=== PATIENT | female | born 1960 | race Caucasian/White ===

== ENCOUNTER 2017-05-19 12:35 | Outpatient (RCR) | payer OTHER ==
[2017-05-19 12:54] LABS: BASOPHILS % (AUTO) 1 % (0-10); EOSINOPHILS # (AUTO) 0.1 10^3/uL (0.0-0.3); EOSINOPHILS % (AUTO) 1 % (0-10); HEMATOCRIT 39 % (35-52); HEMOGLOBIN 12.5 G/DL (11.5-16.0); LYMPHOCYTES # (AUTO) 1.6 X 10^3 (1.0-4.0); LYMPHOCYTES % (AUTO) 36 % (12-44); MEAN CORPUSCULAR HEMOGLOBIN 29 PG (25-34); MEAN CORPUSCULAR HGB CONC 32 G/DL (32-36); MEAN CORPUSCULAR VOLUME 92 FL (80-99); MEAN PLATELET VOLUME 8.9 FL (7.4-10.4); MONOCYTES # (AUTO) 0.5 X 10^3 (0.0-1.0); MONOCYTES % (AUTO) 12 % (0-12); NEUTROPHILS # (AUTO) 2.3 X 10^3 (1.8-7.8); NEUTROPHILS % (AUTO) 51 % (42-75); PLATELET COUNT 426 10^3/uL (130-400); RED BLOOD COUNT 4.29 10^6/uL (4.35-5.85); RED CELL DISTRIBUTION WIDTH 13.8 % (10.0-14.5); WHITE BLOOD COUNT 4.6 10^3/uL (4.3-11.0)
[2017-05-19 13:12] LABS: ALANINE AMINOTRANSFERASE 100 U/L (0-55); ALBUMIN 4.1 GM/DL (3.2-4.5); ALKALINE PHOSPHATASE 140 U/L (40-136); BILIRUBIN,TOTAL 0.5 MG/DL (0.1-1.0); BUN/CREATININE RATIO 14; CALCIUM 9.9 MG/DL (8.5-10.1); CARBON DIOXIDE 23 MMOL/L (21-32); CHLORIDE 108 MMOL/L (98-107); CREATININE SERUM 0.65 MG/DL (0.60-1.30); GFR ESTIMATED > 60; GLUCOSE 106 MG/DL (70-105); POTASSIUM 3.9 MMOL/L (3.6-5.0); SODIUM 138 MMOL/L (135-145); TOTAL PROTEIN 8.6 GM/DL (6.4-8.2)
== END 2017-08-17 | disposition home or self-care (01) ==
LOC: LAB 12:35
PROVIDERS: ATTEND Internal Medicine Rheumatology
DX: M34.9 Systemic sclerosis, unspecified (principal)
CPT/HCPCS: 36415; 80053; 85025

== ENCOUNTER → 2017-10-02 | Outpatient (CLI) | payer OTHER | LOC: WOUNDCARE 08:10 | PROVIDERS: ATTEND Surgery | DX: I70.234 Atherosclerosis of native arteries of right leg with ulceration of heel and midfoot (principal); I70.244 Atherosclerosis of native arteries of left leg with ulceration of heel and midfoot; L97.412 Non-pressure chronic ulcer of right heel and midfoot with fat layer exposed; L97.312 Non-pressure chronic ulcer of right ankle with fat layer exposed; L97.422 Non-pressure chronic ulcer of left heel and midfoot with fat layer exposed; L97.322 Non-pressure chronic ulcer of left ankle with fat layer exposed; M34.9 Systemic sclerosis, unspecified | CPT/HCPCS: 99215 ==

== ENCOUNTER → 2017-10-11 | Outpatient (CLI) | payer OTHER | LOC: WOUNDCARE 14:54 | PROVIDERS: ATTEND Surgery | DX: I70.234 Atherosclerosis of native arteries of right leg with ulceration of heel and midfoot (principal); L97.412 Non-pressure chronic ulcer of right heel and midfoot with fat layer exposed; L97.312 Non-pressure chronic ulcer of right ankle with fat layer exposed; I70.244 Atherosclerosis of native arteries of left leg with ulceration of heel and midfoot; L97.422 Non-pressure chronic ulcer of left heel and midfoot with fat layer exposed; L97.322 Non-pressure chronic ulcer of left ankle with fat layer exposed; M34.9 Systemic sclerosis, unspecified | CPT/HCPCS: 11042; 11045 ==

== ENCOUNTER → 2017-10-23 | Outpatient (CLI) | payer OTHER | LOC: WOUNDCARE 14:31 | PROVIDERS: ATTEND Surgery | DX: I70.231 Atherosclerosis of native arteries of right leg with ulceration of thigh (principal); L97.312 Non-pressure chronic ulcer of right ankle with fat layer exposed; I70.244 Atherosclerosis of native arteries of left leg with ulceration of heel and midfoot; L97.322 Non-pressure chronic ulcer of left ankle with fat layer exposed; I87.333 Chronic venous hypertension (idiopathic) with ulcer and inflammation of bilateral lower extremity; M34.9 Systemic sclerosis, unspecified | CPT/HCPCS: 99214 ==

== ENCOUNTER → 2017-11-15 | Outpatient (CLI) | payer OTHER ==
[2017-11-15 15:52] LABS: BASOPHILS % (AUTO) 0 % (0-10); EOSINOPHILS # (AUTO) 0.1 10^3/uL (0.0-0.3); EOSINOPHILS % (AUTO) 3 % (0-10); HEMATOCRIT 36 % (35-52); HEMOGLOBIN 11.9 G/DL (11.5-16.0); LYMPHOCYTES # (AUTO) 1.4 X 10^3 (1.0-4.0); LYMPHOCYTES % (AUTO) 25 % (12-44); MEAN CORPUSCULAR HEMOGLOBIN 31 PG (25-34); MEAN CORPUSCULAR HGB CONC 33 G/DL (32-36); MEAN CORPUSCULAR VOLUME 92 FL (80-99); MEAN PLATELET VOLUME 9.1 FL (7.4-10.4); MONOCYTES # (AUTO) 0.6 X 10^3 (0.0-1.0); MONOCYTES % (AUTO) 10 % (0-12); NEUTROPHILS # (AUTO) 3.6 X 10^3 (1.8-7.8); NEUTROPHILS % (AUTO) 62 % (42-75); PLATELET COUNT 316 10^3/uL (130-400); RED CELL DISTRIBUTION WIDTH 13.6 % (10.0-14.5); WHITE BLOOD COUNT 5.7 10^3/uL (4.3-11.0)
[2017-11-15 16:16] LABS: ALANINE AMINOTRANSFERASE 72 U/L (0-55); ALKALINE PHOSPHATASE 98 U/L (40-136); BILIRUBIN,TOTAL 0.4 MG/DL (0.1-1.0); BUN/CREATININE RATIO 12; CALCIUM 9.3 MG/DL (8.5-10.1); CARBON DIOXIDE 25 MMOL/L (21-32); CHLORIDE 109 MMOL/L (98-107); CREATININE SERUM 0.57 MG/DL (0.60-1.30); GFR ESTIMATED > 60; GLUCOSE 98 MG/DL (70-105); POTASSIUM 3.8 MMOL/L (3.6-5.0); SODIUM 140 MMOL/L (135-145)
== END ==
LOC: LAB 15:28
PROVIDERS: ATTEND Surgery
DX: I70.234 Atherosclerosis of native arteries of right leg with ulceration of heel and midfoot (principal); L97.312 Non-pressure chronic ulcer of right ankle with fat layer exposed
CPT/HCPCS: 36415; 80053; 85025

== ENCOUNTER → 2017-11-15 | Outpatient (CLI) | payer OTHER | LOC: WOUNDCARE 13:57 | PROVIDERS: ATTEND Surgery | DX: I70.234 Atherosclerosis of native arteries of right leg with ulceration of heel and midfoot (principal); L97.312 Non-pressure chronic ulcer of right ankle with fat layer exposed; I70.244 Atherosclerosis of native arteries of left leg with ulceration of heel and midfoot; L97.322 Non-pressure chronic ulcer of left ankle with fat layer exposed; I87.333 Chronic venous hypertension (idiopathic) with ulcer and inflammation of bilateral lower extremity; M34.9 Systemic sclerosis, unspecified | CPT/HCPCS: 11042; 11045 ==

== ENCOUNTER → 2018-01-29 | Outpatient (CLI) | payer OTHER | LOC: LAB 13:56 | PROVIDERS: ATTEND Internal Medicine Gastroenterology | DX: R94.5 Abnormal results of liver function studies (principal) | CPT/HCPCS: 36415; 82085; 82550; 82552 ==

== ENCOUNTER → 2018-04-23 | Outpatient (CLI) | payer OTHER | LOC: CARD 11:47 | PROVIDERS: ATTEND Family Medicine | DX: M34.9 Systemic sclerosis, unspecified (principal) | CPT/HCPCS: 93306; 94060; 94726; 94729 ==

== ENCOUNTER → 2018-07-10 | Outpatient (CLI) | payer OTHER ==
[~2018-07-10] MED LIST: CATHETER FLUSH 10 ML SYR IV PRN; IOHEXOL 350 MG/ML 150 ML (OMNIPAQUE 350) VIAL IV ONE; NS 250 ML (IVPB) BAG IV ONE; RECEIVED CONTRAST (Hold Metformin) IV SCH
--- NOTE | 2018-07-10 16:55 | Diagnostic Imaging Report ---
PROCEDURE: CT angiography of the chest with contrast. TECHNIQUE: Multiple contiguous axial images were obtained through the chest after uneventful bolus administration of intravenous contrast. 2D reconstructed CTA MIP acquisitions were also performed. INDICATION: Decreased pulmonary diffusion capacity. FINDINGS: There is no intraluminal pulmonary arterial filling defect. There is no pulmonary arterial embolus. The thoracic aorta is patent and nonaneurysmal. There is no bronchiectasis. No bullous disease, blebs, or air cysts. No parenchymal destruction. There are minimal zones of basilar atelectasis. No acute or chronic interstitial disease. No mass or lymphadenopathy. There is no effusion. The upper abdomen reveals multiple gallstones and a nonspecific nodule in the right hepatic lobe laterally, probably reflecting a hemangioma as there does appear to be likely peripheral nodular enhancement associated with this mass measuring 12.8 mm. IMPRESSION: Negative for PE. Trace atelectasis. Lungs are otherwise unremarkable. Probable cavernous hemangioma in the right hepatic lobe. Results phoned to the ordering physician. Dictated by: Dictated on workstation # [id number]
== END ==
LOC: RAD 15:26
PROVIDERS: ATTEND Nurse Practitioner Family
DX: J98.4 Other disorders of lung (principal); J98.11 Atelectasis; M34.9 Systemic sclerosis, unspecified; R94.2 Abnormal results of pulmonary function studies
CPT/HCPCS: 71275

== ENCOUNTER → 2018-07-27 | Outpatient (CLI) | payer OTHER ==
--- NOTE | 2018-07-27 11:37 | Diagnostic Imaging Report ---
EXAMINATION: Bone survey. INDICATION: Scleroderma. Multiple images of the axial and appendicular skeleton were obtained. FINDINGS: There is no fracture or acute bony abnormality identified. There is no lytic or blastic lesion identified either. 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 The right wrist is the more severely affected. The soft tissues are unremarkable. IMPRESSION: 1. There is no evidence for an acute bony abnormality. There is no lytic or blastic lesion identified either. 2. There is severe degenerative disease involving the wrist joints and the carpal bones. Dictated by: Dictated on workstation # [id number]
== END ==
LOC: RAD 09:57
PROVIDERS: ATTEND Internal Medicine Hematology & Oncology
DX: M34.9 Systemic sclerosis, unspecified (principal); M19.032 Primary osteoarthritis, left wrist; M19.031 Primary osteoarthritis, right wrist
CPT/HCPCS: 77075

== ENCOUNTER 2018-09-06 09:42 | Outpatient (RCR) | payer OTHER ==
[2018-07-10 14:48] LABS: BASOPHILS % (AUTO) 1 % (0-10); EOSINOPHILS # (AUTO) 0.3 10^3/uL (0.0-0.3); EOSINOPHILS % (AUTO) 6 % (0-10); HEMATOCRIT 34 % (35-52); HEMOGLOBIN 10.6 G/DL (11.5-16.0); LYMPHOCYTES # (AUTO) 1.4 X 10^3 (1.0-4.0); LYMPHOCYTES % (AUTO) 31 % (12-44); MEAN CORPUSCULAR HEMOGLOBIN 28 PG (25-34); MEAN CORPUSCULAR HGB CONC 31 G/DL (32-36); MEAN CORPUSCULAR VOLUME 92 FL (80-99); MEAN PLATELET VOLUME 8.9 FL (7.4-10.4); MONOCYTES # (AUTO) 0.4 X 10^3 (0.0-1.0); MONOCYTES % (AUTO) 10 % (0-12); NEUTROPHILS # (AUTO) 2.3 X 10^3 (1.8-7.8); NEUTROPHILS % (AUTO) 52 % (42-75); PLATELET COUNT 415 10^3/uL (130-400); RED CELL DISTRIBUTION WIDTH 15.3 % (10.0-14.5); WHITE BLOOD COUNT 4.3 10^3/uL (4.3-11.0)
[2018-07-10 15:15] LABS: ALANINE AMINOTRANSFERASE 36 U/L (0-55); ALBUMIN 3.8 GM/DL (3.2-4.5); ALKALINE PHOSPHATASE 118 U/L (40-136); BILIRUBIN,TOTAL 0.3 MG/DL (0.1-1.0); BUN/CREATININE RATIO 21; CALCIUM 9.7 MG/DL (8.5-10.1); CARBON DIOXIDE 20 MMOL/L (21-32); CHLORIDE 109 MMOL/L (98-107); CREATININE SERUM 0.58 MG/DL (0.60-1.30); GFR ESTIMATED > 60; GLUCOSE 97 MG/DL (70-105); POTASSIUM 3.8 MMOL/L (3.6-5.0); SODIUM 139 MMOL/L (135-145); TOTAL PROTEIN 8.2 GM/DL (6.4-8.2)
[2018-07-12 15:58] LABS: IMMUNOFIX PATH REPORT NUMBER Complete (Complete)
[2018-07-18 15:24] LABS: URINE IMMUNOFIXATION W/ INTERP Complete
[2018-08-02 12:00] LABS: URINE IMMUNOFIXATION W/ INTERP Complete
[2018-08-23 10:59] LABS: ABSOLUTE RETIC # 39 10e9/L (24-90); BASOPHILS % (AUTO) 1 % (0-10); EOSINOPHILS # (AUTO) 0.2 10^3/uL (0.0-0.3); EOSINOPHILS % (AUTO) 5 % (0-10); HEMATOCRIT 39 % (35-52); HEMOGLOBIN 12.4 G/DL (11.5-16.0); LYMPHOCYTES # (AUTO) 1.3 X 10^3 (1.0-4.0); LYMPHOCYTES % (AUTO) 34 % (12-44); MEAN CORPUSCULAR HEMOGLOBIN 29 PG (25-34); MEAN CORPUSCULAR HGB CONC 32 G/DL (32-36); MEAN CORPUSCULAR VOLUME 90 FL (80-99); MONOCYTES # (AUTO) 0.4 X 10^3 (0.0-1.0); MONOCYTES % (AUTO) 11 % (0-12); NEUTROPHILS % (AUTO) 50 % (42-75); PLATELET COUNT 413 10^3/uL (130-400); RED CELL DISTRIBUTION WIDTH 14.4 % (10.0-14.5); RETICULOCYTE % 0.89 % (0.50-2.40); WHITE BLOOD COUNT 3.9 10^3/uL (4.3-11.0)
[2018-08-23 11:34] LABS: BAND NEUTROPHILS 5 %; BASOPHILS % (MANUAL) 0 %; EOSINOPHILS % (MANUAL) 5 %; LYMPHOCYTES % (MANUAL) 32 %; MONOCYTES % (MANUAL) 12 %; NEUTROPHILS % (MANUAL) 46 %; RBC MORPH NORMAL
[~2018-09-06 09:42] MED LIST changes: -CATHETER FLUSH 10 ML SYR IV PRN; -IOHEXOL 350 MG/ML 150 ML (OMNIPAQUE 350) VIAL IV ONE; +LIDOCAINE 1% 20 ML (XYLOCAINE) VIAL CANCER CTR ONE; -NS 250 ML (IVPB) BAG IV ONE; -RECEIVED CONTRAST (Hold Metformin) IV SCH
== END 2018-10-08 | disposition home or self-care (01) ==
LOC: ONC 09:42
PROVIDERS: ATTEND Internal Medicine Hematology & Oncology
DX: D47.2 Monoclonal gammopathy (principal); D64.9 Anemia, unspecified; M34.9 Systemic sclerosis, unspecified; I10 Essential (primary) hypertension; J98.4 Other disorders of lung; Z79.899 Other long term (current) drug therapy
CPT/HCPCS: 36415; 38221; 80053; 82232; 82570; 82607; 82728; 82746; 82784; 83540; 83883; 84155; 84156; 84165; 84166; 85007; 85025; 85027; 85045; 86334; 86335; 88237; 88264; 99213

== ENCOUNTER → 2018-10-23 | Outpatient (CLI) | payer OTHER ==
[2018-10-23 16:50] LABS: BASOPHILS % (AUTO) 1 % (0-10); EOSINOPHILS # (AUTO) 0.1 10^3/uL (0.0-0.3); EOSINOPHILS % (AUTO) 3 % (0-10); HEMATOCRIT 37 % (35-52); HEMOGLOBIN 12.1 G/DL (11.5-16.0); LYMPHOCYTES # (AUTO) 1.6 X 10^3 (1.0-4.0); LYMPHOCYTES % (AUTO) 42 % (12-44); MEAN CORPUSCULAR HEMOGLOBIN 29 PG (25-34); MEAN CORPUSCULAR HGB CONC 33 G/DL (32-36); MEAN CORPUSCULAR VOLUME 90 FL (80-99); MEAN PLATELET VOLUME 8.8 FL (7.4-10.4); MONOCYTES # (AUTO) 0.3 X 10^3 (0.0-1.0); MONOCYTES % (AUTO) 9 % (0-12); NEUTROPHILS # (AUTO) 1.8 X 10^3 (1.8-7.8); NEUTROPHILS % (AUTO) 46 % (42-75); PLATELET COUNT 349 10^3/uL (130-400); RED CELL DISTRIBUTION WIDTH 14.5 % (10.0-14.5); WHITE BLOOD COUNT 3.9 10^3/uL (4.3-11.0)
[2018-10-23 17:10] LABS: ALANINE AMINOTRANSFERASE 32 U/L (0-55); ALBUMIN 3.9 GM/DL (3.2-4.5); ALKALINE PHOSPHATASE 104 U/L (40-136); BILIRUBIN,TOTAL 0.5 MG/DL (0.1-1.0); BUN/CREATININE RATIO 15; CALCIUM 9.6 MG/DL (8.5-10.1); CARBON DIOXIDE 24 MMOL/L (21-32); CHLORIDE 106 MMOL/L (98-107); ERYTHROCYTE SEDIMENTATION RATE 56 MM/HR (0-30); GFR ESTIMATED > 60; GLUCOSE 94 MG/DL (70-105); POTASSIUM 3.8 MMOL/L (3.6-5.0); SODIUM 139 MMOL/L (135-145)
== END ==
LOC: LAB 16:19
PROVIDERS: ATTEND Internal Medicine Rheumatology
DX: M34.9 Systemic sclerosis, unspecified (principal); Z79.899 Other long term (current) drug therapy
CPT/HCPCS: 36415; 80053; 85025; 85652; 86141

== ENCOUNTER 2018-12-06 10:29 | Outpatient (RCR) | payer OTHER ==
[2018-11-19 15:09] LABS: BASOPHILS % (AUTO) 1 % (0-10); EOSINOPHILS # (AUTO) 0.1 10^3/uL (0.0-0.3); EOSINOPHILS % (AUTO) 3 % (0-10); HEMATOCRIT 37 % (35-52); HEMOGLOBIN 12.3 G/DL (11.5-16.0); LYMPHOCYTES # (AUTO) 1.5 X 10^3 (1.0-4.0); LYMPHOCYTES % (AUTO) 40 % (12-44); MEAN CORPUSCULAR HEMOGLOBIN 30 PG (25-34); MEAN CORPUSCULAR HGB CONC 33 G/DL (32-36); MEAN CORPUSCULAR VOLUME 92 FL (80-99); MEAN PLATELET VOLUME 9.4 FL (7.4-10.4); MONOCYTES # (AUTO) 0.4 X 10^3 (0.0-1.0); MONOCYTES % (AUTO) 11 % (0-12); NEUTROPHILS # (AUTO) 1.7 X 10^3 (1.8-7.8); NEUTROPHILS % (AUTO) 46 % (42-75); PLATELET COUNT 329 10^3/uL (130-400); RED CELL DISTRIBUTION WIDTH 14.5 % (10.0-14.5); WHITE BLOOD COUNT 3.8 10^3/uL (4.3-11.0)
[2018-11-19 15:26] LABS: ALANINE AMINOTRANSFERASE 30 U/L (0-55); ALBUMIN 3.9 GM/DL (3.2-4.5); ALKALINE PHOSPHATASE 103 U/L (40-136); BILIRUBIN,TOTAL 0.5 MG/DL (0.1-1.0); BUN/CREATININE RATIO 16; CALCIUM 9.7 MG/DL (8.5-10.1); CARBON DIOXIDE 23 MMOL/L (21-32); CHLORIDE 107 MMOL/L (98-107); CREATININE SERUM 0.63 MG/DL (0.60-1.30); GFR ESTIMATED > 60; GLUCOSE 92 MG/DL (70-105); POTASSIUM 4.2 MMOL/L (3.6-5.0); SODIUM 137 MMOL/L (135-145); TOTAL PROTEIN 7.7 GM/DL (6.4-8.2)
== END 2019-02-17 | disposition home or self-care (01) ==
LOC: ONC 10:29
PROVIDERS: ATTEND Internal Medicine Hematology & Oncology
DX: D47.2 Monoclonal gammopathy (principal); D64.9 Anemia, unspecified; M34.9 Systemic sclerosis, unspecified; I10 Essential (primary) hypertension; J98.4 Other disorders of lung; Z79.899 Other long term (current) drug therapy
CPT/HCPCS: 36415; 80053; 82232; 82570; 82784; 83615; 83883; 84155; 84156; 84165; 84166; 85025; 99213

== ENCOUNTER → 2019-01-16 | Outpatient (CLI) | payer OTHER | LOC: LAB 15:32 | PROVIDERS: ATTEND Internal Medicine Rheumatology | DX: Z51.81 Encounter for therapeutic drug level monitoring (principal); Z79.899 Other long term (current) drug therapy | CPT/HCPCS: 36415 ==

== ENCOUNTER → 2019-04-14 | Outpatient (CLI) | payer OTHER ==
[2019-04-14 17:16] LABS: BASOPHILS % (AUTO) 1 % (0-10); EOSINOPHILS # (AUTO) 0.1 10^3/uL (0.0-0.3); EOSINOPHILS % (AUTO) 3 % (0-10); HEMATOCRIT 36 % (35-52); HEMOGLOBIN 11.2 G/DL (11.5-16.0); LYMPHOCYTES # (AUTO) 1.6 X 10^3 (1.0-4.0); LYMPHOCYTES % (AUTO) 46 % (12-44); MEAN CORPUSCULAR HEMOGLOBIN 28 PG (25-34); MEAN CORPUSCULAR HGB CONC 32 G/DL (32-36); MEAN CORPUSCULAR VOLUME 89 FL (80-99); MONOCYTES # (AUTO) 0.4 X 10^3 (0.0-1.0); MONOCYTES % (AUTO) 11 % (0-12); NEUTROPHILS # (AUTO) 1.4 X 10^3 (1.8-7.8); NEUTROPHILS % (AUTO) 39 % (42-75); PLATELET COUNT 403 10^3/uL (130-400); RED CELL DISTRIBUTION WIDTH 15.5 % (10.0-14.5); WHITE BLOOD COUNT 3.5 10^3/uL (4.3-11.0)
[2019-04-14 17:57] LABS: ERYTHROCYTE SEDIMENTATION RATE 73 MM/HR (0-30)
[2019-04-14 18:06] LABS: ALANINE AMINOTRANSFERASE 24 U/L (0-55); ALBUMIN 3.8 GM/DL (3.2-4.5); ALKALINE PHOSPHATASE 131 U/L (40-136); BILIRUBIN,TOTAL 0.3 MG/DL (0.1-1.0); BUN/CREATININE RATIO 39; CALCIUM 9.3 MG/DL (8.5-10.1); CARBON DIOXIDE 20 MMOL/L (21-32); CHLORIDE 109 MMOL/L (98-107); CREATINE KINASE 106 U/L (29-168); CREATININE SERUM 0.59 MG/DL (0.60-1.30); GFR ESTIMATED > 60; GLUCOSE 99 MG/DL (70-105); SODIUM 136 MMOL/L (135-145); TOTAL PROTEIN 8.8 GM/DL (6.4-8.2)
== END ==
LOC: LAB 16:52
PROVIDERS: ATTEND Internal Medicine Rheumatology
DX: M34.9 Systemic sclerosis, unspecified (principal); Z79.899 Other long term (current) drug therapy
CPT/HCPCS: 36415; 80053; 82550; 85025; 85652; 86141

== ENCOUNTER 2019-06-06 12:47 | Outpatient (RCR) | payer OTHER ==
[2019-05-23 11:53] LABS: BASOPHILS % (AUTO) 1 % (0-10); EOSINOPHILS # (AUTO) 0.1 10^3/uL (0.0-0.3); EOSINOPHILS % (AUTO) 2 % (0-10); HEMATOCRIT 36 % (35-52); HEMOGLOBIN 11.6 G/DL (11.5-16.0); LYMPHOCYTES # (AUTO) 1.4 X 10^3 (1.0-4.0); LYMPHOCYTES % (AUTO) 37 % (12-44); MEAN CORPUSCULAR HEMOGLOBIN 29 PG (25-34); MEAN CORPUSCULAR HGB CONC 32 G/DL (32-36); MEAN CORPUSCULAR VOLUME 89 FL (80-99); MEAN PLATELET VOLUME 8.9 FL (7.4-10.4); MONOCYTES # (AUTO) 0.3 X 10^3 (0.0-1.0); MONOCYTES % (AUTO) 9 % (0-12); NEUTROPHILS # (AUTO) 1.9 X 10^3 (1.8-7.8); NEUTROPHILS % (AUTO) 51 % (42-75); PLATELET COUNT 336 10^3/uL (130-400); RED CELL DISTRIBUTION WIDTH 14.4 % (10.0-14.5); WHITE BLOOD COUNT 3.8 10^3/uL (4.3-11.0)
[2019-05-23 12:10] LABS: ALANINE AMINOTRANSFERASE 23 U/L (0-55); ALBUMIN 3.7 GM/DL (3.2-4.5); ALKALINE PHOSPHATASE 110 U/L (40-136); BILIRUBIN,TOTAL 0.5 MG/DL (0.1-1.0); BUN/CREATININE RATIO 18; CALCIUM 9.2 MG/DL (8.5-10.1); CARBON DIOXIDE 24 MMOL/L (21-32); CHLORIDE 107 MMOL/L (98-107); CREATININE SERUM 0.61 MG/DL (0.60-1.30); GFR ESTIMATED > 60; GLUCOSE 98 MG/DL (70-105); POTASSIUM 3.8 MMOL/L (3.6-5.0); SODIUM 138 MMOL/L (135-145); TOTAL PROTEIN 8.1 GM/DL (6.4-8.2)
[2019-05-24 14:44] LABS: PROTEIN 24 HOUR URINE 144 MG/24H (0-149); PROTEIN URINE MG/DL 8 MG/DL (6-12); TOTAL VOLUME,URINE 1800 ML
[2019-06-06] MEDS ORDERED: FLU QUADRIvalent (5+ YOA) 2019-2020 (Cancer Ctr) 0.5 ML IM ONE (14:00)
== END 2019-08-21 | disposition home or self-care (01) ==
LOC: ONC 12:47
PROVIDERS: ATTEND Internal Medicine Hematology & Oncology
DX: D47.2 Monoclonal gammopathy (principal); D64.9 Anemia, unspecified; M34.9 Systemic sclerosis, unspecified; I10 Essential (primary) hypertension; J98.4 Other disorders of lung; Z79.899 Other long term (current) drug therapy
CPT/HCPCS: 80053; 82784; 83615; 83883; 84155; 84156; 84165; 85025; 90471; 99213

== ENCOUNTER 2019-10-30 09:19 | Inpatient (IN) | payer OTHER ==
[2019-10-30] VITALS (11 sets, daily range): BP systolic 84–115; BP diastolic 52–71
[~2019-10-30] VITALS: Ht 172.7 cm; Wt 80.9 kg
--- NOTE | 2019-10-30 09:36 | Diagnostic Imaging Report ---
Indication: Sepsis workup. Time of exam 9:32 AM No prior studies are available for comparison. The heart size is normal. The pulmonary vascularity is unremarkable. The lungs are clear. No infiltrate, effusion or pneumothorax is detected. Impression: No acute cardiopulmonary process is detected. Dictated by: Dictated on workstation # [id number]
[2019-10-30] MEDS ORDERED: METO-351 PO (09:42)
[2019-10-30] MEDS ORDERED: OMEP20TA33 PO (09:42)
[2019-10-30] MEDS ORDERED: LISI-552 PO (09:42)
[2019-10-30] MEDS ORDERED: LACTATED RINGERS 1,000 ML IV STA (09:46)
[2019-10-30] MEDS ORDERED: fentaNYL INJECTION 100 MCG/2 ML AMP IVP STA (09:46)
--- OUTSIDE RECORDS SUMMARY | 2019-10-30 09:49 | XMS REPORT | CCD ---
Author Author Pilar Payton D.O. 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 Name Role Phone PP Unavailable CCM Unavailable Summary Purpose Interface Exchange Insurance Providers Payer name Policy type / Coverage type Covered green party ID Effective Begin Date Effective End Date [facility] Commercial Insurance [id number] 2017 Un known Family history Mother Diagnosis Age At Onset Diabetes mellitus Type 2 Unknown Heart disease Unknown Father Diagnosis Age At Onset Coronary Artery Disease(CAD) Unknown Diabetes mellitus Type 2 Unknown Social History Social History Element Codes Description Effective Dates Marital status Unknown 01/01/2018 Number of children Unknown 2 01/01/2018 Employment Unknown Currently unemployed 01/01/[address]: 029741948 Has never smoked or chewed tobacco 01/01/[address]: 010317720 Never drinks alcohol 2017 Has the patient ever used illegal drugs? Unknown Has nev er used illegal drugs 01/01/2018 Allergies, Adverse Reactions, Alerts Substance Reaction Codes Entered Date Inactivated Date Status * NO KNOWN ENVIRONMENTAL ALLERGIES Unknown 01/01/2018 N o Inactive Date Active PENICILLINS reaction Unknown 01/01/2018 No Inactive Date Active * NO KNOWN FOOD ALLERGIES Unknown 01/01/2018 No Inactiv e Date Active Problems Condition Codes Effective Dates Condition Status Chronic iridocyclitis, right eye ICD-9: 364.10 ICD-10: H20.11 04/05/2018 Active Encounter for general adult medical examination withou t abnormal findings ICD-9: V70.0 ICD-10: Z00.00 06/06/2019 Active Essential (primary) hypertension ICD-9: 401.9 ICD-10: I10 01/01/2018 Active Progressive systemic sclerosis ICD-9: 710.1 ICD-10: M34.0 01/01/2018 Active Otalgia, left ear ICD-9: 388.70 ICD-10: H92.02 08/28/2018 Active Otorrhagia, left ear ICD-9: 388.69 ICD-10: H92.22 08/28/2018 Active Unspecified perforation of tympanic membrane, left ear ICD-9: 384.20 ICD-10: H72.92 08/28/2018 Active FLU VACCINE ICD-9: V04.81 ICD-10: Z23 05/29/2018 Active PNEUMOCOCCAL VACCINE ICD-9: V03.82 ICD-10: Z23 05/29/2018 Active Pain in right ankle and joints of right foot ICD-9: 71 9.47 ICD-10: M25.571 04/23/2018 Active Tachycardia, unspecified ICD-9: 785.0 ICD-10: R00.0 04/23/2018 Active Hypertension Unknown 01/01/2018 Active Abnormal levels of other serum enzymes ICD-9: 790.5 ICD-10: R74.8 01/01/2018 Active 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 ICD-9: 707.13 ICD-10: L97.322 01/01/2018 Active Non-pressure chronic ulcer of right ankle with fat lay er exposed ICD-9: 707.13 ICD-10: L97.312 01/01/2018 Active Medications Medication Codes Instructions Start Date Stop Date Status Fill Instructions prednisone 10 mg tablet RxNorm: 762540 Take 1 tablet by mouth twice daily for 3 days then 1 daily for four days 08/13/2019 08/16/2019 Active prednisone 10 mg tablet RxNorm: 148710 1 Tablet(s) Oral two times a day then 1 daily for four days 08/13/2019 08/12/2019 Inactive lisinopril 20 mg tablet RxNorm: 304684 1 Tablet(s) Oral QD 06/10/20 19 03/05/2020 Active metoprolol succinate ER 25 mg tablet,extended release 24 hr RxNorm: 605608 TAKE 1 TABLET DAILY 06/10/2019 No Stop Date Active metoprolol succinate ER 25 mg tablet,extended release 24 hr RxNorm: 380413 1 Tablet(s) Oral QD 06/06/2019 No Stop Date Active meloxicam 15 mg tablet RxNorm: 998013 1 Tablet(s) Oral QD 9 No Stop Date Active Benadryl Allergy 25 mg tablet RxNorm: 7343990 1 Tablet(s) Oral QD 1 No Stop Date Active lisinopril 20 mg tablet RxNorm: 027078 1 Tablet(s) Oral QD 06/06/20 19 06/09/2019 Inactive clindamycin HCl 300 mg capsule RxNorm: 782637 1 Capsule(s) Oral two times a day 06/06/2019 06/13/2019 Inactive meloxicam submicronized 10 mg capsule RxNorm: 5119702 1 Capsule( s) Oral QD 06/06/2019 06/06/2019 Inactive ciprofloxacin 0.2 % ear drops in a dropperette RxNorm: 37934 6 3 Drop(s) otic (ear) BID 08/28/2018 09/03/2018 Inactive CellCept 200 mg/mL oral suspension RxNorm: 476688 TAKE 5 ML BY MOUTH TWICE DAILY 07/02/2018 06/05/2019 Inactive metoprolol succinate ER 25 mg tablet,extended release 24 hr RxNorm: 175033 1 Tablet(s) PO QD replaces bisoprolol 06/15/2018 06/14/2018 Inactive metoprolol succinate ER 25 mg tablet,extended release 24 hr RxNorm: 001783 1 Tablet(s) PO QD replaces bisoprolol 06/15/2018 09/12/2018 Inactive diclofenac potassium 50 mg tablet RxNorm: 569213 1 Tablet(s) PO QID 05/29/2018 06/07/2018 Inactive bisoprolol fumarate 10 mg tablet RxNorm: 009364 1 Tablet(s) PO QD 1 06/14/2018 Inactive CellCept 200 mg/mL oral suspension RxNorm: 868219 5 Milliliter( s) PO BID 05/08/2018 06/06/2018 Inactive CellCept 200 mg/mL oral suspension RxNorm: 174573 5 Milliliter( s) PO BID 05/08/2018 09/04/2018 Inactive bisoprolol fumarate 10 mg tablet RxNorm: 701976 1 Tablet(s) PO QD 0 04/23/2018 05/13/2018 Inactive CellCept 200 mg/mL oral suspension RxNorm: 764938 5 Milliliter( s) PO BID 04/19/2018 05/07/2018 Inactive lisinopril 40 mg tablet RxNorm: 771374 1 Tablet(s) PO QD replac es 10mg daily 04/05/2018 06/10/2019 Inactive May change to 20mg p o BID if pill is too big for patient to swallow or more cost effective CellCept 200 mg/mL oral suspension RxNorm: 354668 5 Milliliter( s) PO BID 04/05/2018 04/18/2018 Inactive prednisone 10 mg tablet RxNorm: 273873 1 Tablet(s) PO B ID for 1 week the 1 po daily for 1 week 04/05/2018 04/22/2018 Inactive famotidine 20 mg tablet RxNorm: 506265 1 Tablet(s) PO QHS No Start Da te Active lisinopril 10 mg tablet RxNorm: 722301 1 Tablet(s) PO QD No Start D ate 04/04/2018 Inactive ibuprofen 200 mg tablet RxNorm: 794171 Tablet(s) PO as needed No St art Date 05/28/2018 Inactive Aleve 220 mg tablet RxNorm: 194258 2 Tablet(s) PO BID No Start Date 0 08/27/2018 Inactive Benadryl 25 mg capsule RxNorm: 2325252 1 Capsule(s) PO QHS No Start Date 08/27/2018 Inactive lisinopril 40 mg tablet RxNorm: 912920 1/2 Tablet(s) PO QD No Start Date 06/05/2019 Inactive Medication Administered No Medication Administered data Immunizations Vaccine Codes Date Status Influenza CVX: 141 05/29/2018 Complete Pneumococcal CVX: 133 05/29/2018 Complete Results Observation Observation Code Item Item Code Result Date [facility] Location URIC ACID 96271 URIC ACID 3.2 mg/dL 04/23/2018 Unknown COMPLETE BLOOD COUNT [id number] WBC 7.2 10e9/L 04/23/20 18 Unknown COMPLETE BLOOD COUNT [id number] RBC 3.81 10e12/L 2017 Unknown COMPLETE BLOOD COUNT [id number] HEMOGLOBIN 11.1 g/dL 04/23/20 18 Unknown COMPLETE BLOOD COUNT [id number] HEMATOCRIT 35.5 % 04/23/20 18 Unknown COMPLETE BLOOD COUNT [id number] MCV 93.2 fL 8 Unknown COMPLETE BLOOD COUNT [id number] MCH 29.1 pg 8 Unknown COMPLETE BLOOD COUNT [id number] MCHC 31.3 g/dL 8 Unknown COMPLETE BLOOD COUNT [id number] PLATELET COUNT 473 10e9/L 05/2018 Unknown COMPLETE BLOOD COUNT [id number] Mean Plt Volume 9.4 fL 05/2018 Unknown COMPLETE BLOOD COUNT [id number] Neut Auto 63.0 % 8 Unknown COMPLETE BLOOD COUNT [id number] Lymph Auto 25.8 % 04/23/20 18 Unknown COMPLETE BLOOD COUNT [id number] [place] Auto 8.8 % 8 Unknown COMPLETE BLOOD COUNT [id number] RDW 14.9 % 8 Unknown COMPLETE BLOOD COUNT [id number] Eos Auto 2.1 % 8 Unknown COMPLETE BLOOD COUNT [id number] Baso Auto 0.3 % 8 Unknown COMPLETE BLOOD COUNT [id number] Neutrophil Abs 4.54 10e9/L Unknown COMPLETE BLOOD COUNT [id number] Lymphocyte Abs 1.86 10e9/L Unknown COMPLETE BLOOD COUNT [id number] Monocyte Abs 0.63 10e9/L 04/14 Unknown COMPLETE BLOOD COUNT [id number] Eosinophil Abs 0.15 10e9/L Unknown COMPLETE BLOOD COUNT [id number] Basophil Abs 0.02 10e9/L 04/14 Unknown COMPLETE BLOOD COUNT [id number] RDW-SD 48.6 fL 8 Unknown C-REACTIVE PROTEIN (CRP) QUANT 49696 C-Reactive Prot 8.5 mg/dL 04/23/2018 Unknown COMPREHENSIVE METABOLIC 11480 AST 29 U/L 2017 Unknown COMPREHENSIVE METABOLIC 46595 ALT 46 U/L 2017 Unknown COMPREHENSIVE METABOLIC 52506 BUN 14 mg/dL 2017 Unknown COMPREHENSIVE METABOLIC 83949 ALBUMIN 3.6 g/dL 2017 Unknown COMPREHENSIVE METABOLIC 49659 CHLORIDE 105 mmol/L 04/23 Unknown COMPREHENSIVE METABOLIC 73904 Bili Total 0.4 mg/dL 04/23 Unknown COMPREHENSIVE METABOLIC 29517 ALK PHOS 161 U/L 2017 Unknown COMPREHENSIVE METABOLIC 63725 SODIUM 140 mmol/L 04/23 Unknown COMPREHENSIVE METABOLIC 06945 CREATININE 0.41 mg/dL 04/14 Unknown COMPREHENSIVE METABOLIC 71048 CALCIUM 9.4 mg/dL 2017 Unknown COMPREHENSIVE METABOLIC 80505 POTASSIUM 3.6 mmol/L 04/23 Unknown COMPREHENSIVE METABOLIC 73248 Total Protein 7.9 g/dL Unknown COMPREHENSIVE METABOLIC 09477 Glucose 129 mg/dL 2017 Unknown COMPREHENSIVE METABOLIC 41955 Bicarbonate 22 mmol/L 04/14 Unknown COMPREHENSIVE METABOLIC 05497 AGAP 13 mmol/L 2017 Unknown ERYTHROCYTE SEDIMENTATION RATE 12469 Sed Rate 68 mm/hr 04/23/2018 Unknown GFR CALC 1405611 GFR Afr Amr >60 mL/min 04/23/2018 Unknow n GFR CALC 1072987 GFR Non Afr Amr >60 mL/min 04/23/2018 Un known Procedures Procedure Codes Date CEFTRIAXONE SODIUM INJECTION CPT-4: J0696 08/28/2018 THER/PROPH/DIAG INJ SC/IM CPT-4: 40032 08/28/2018 IIV4 VACCINE 3 YRS+ IM AND UP CPT-4: 63701 05/29/2018 PNEUMOCOCCAL VACC 13 ZULEYMA IM CPT-4: 80420 05/29/2018 IMMUNIZATION ADMIN CPT-4: 11275 05/29/2018 IMMUNIZATION ADMIN EACH ADD CPT-4: 49820 05/29/2018 ROUTINE VENIPUNCTURE CPT-4: 33846 04/23/2018 COMPREHEN METABOLIC PANEL CPT-4: 56448 04/23/2018 COMPLETE CBC W/AUTO DIFF WBC CPT-4: 69683 04/23/2018 RBC SED RATE AUTOMATED CPT-4: 44368 04/23/2018 ASSAY OF BLOOD/URIC ACID CPT-4: 46802 04/23/2018 C-REACTIVE PROTEIN CPT-4: 36094 04/23/2018 THER/PROPH/DIAG INJ SC/IM CPT-4: 73582 04/05/2018 TRIAMCINOLONE ACET INJ NOS CPT-4: J3301 04/05/2018 DEXAMETHASONE SODIUM PHOS CPT-4: J1100 04/05/2018 Vital Signs Date Vital 06/06/2019 Blood Pressure 1: 130/72 Code: 8480-6 Te mperature: 36.7 (C) / 98.0 (F) Weight: 08/28/2018 Blood Pressure 1: 164/90 Code: 8480-6 Heart Rate 1: 96 bpm Respiratory Rate: 16 bpm SpO2: 97% Temperature: 36.8 (C) / 98.2 (F) We ight: 05/29/2018 Blood Pressure 1: 144/82 Code: 8480-6 Heart Rate 1: 80 bpm Height: Respiratory Rate: 20 bpm SpO2: 97% Temperature: 36.6 (C) / 97.8 (F) We ight: 04/23/2018 Blood Pressure 1: 126/78 Code: 8480-6 Heart Rate 1: 112 bpm Respiratory Rate: 18 bpm Temperature: 36.8 (C) / 98.2 (F) 04/05/2018 Blood Pressure 1: 166/96 Code: 8480-6 Heart Rate 1: 11 6 bpm Height: Respiratory Rate: 20 bpm SpO2: 95% Temperature: 37.3 (C) / 99.2 (F) We ight: 01/01/2018 Blood Pressure 1: 134/82 Code: 8480-6 Heart Rate 1: 92 bpm Height: Respiratory Rate: 20 bpm SpO2: 97% Temperature: 36.6 (C) / 97.8 (F) We ight: Functional Status No Functional Status data Reason For Visit Reason For Visit Effective Dates Notes well woman exam (40-65 years) 06/06/2019 otalgia 08/28/2018 patient started taki ng the whole pill of her Lisinopril since Thanksgi follow up 05/29/2018 follow up 04/23/2018 sores 04/05/2018 Discuss restarting c ellcept ~generic 01/01/2018 New Patient---establ ishing visit Encounters Encounter Performer Location Codes Date ([id number]) PREV VISIT EST AGE 40-64 Diagnosis: Encounter for general adult medical examination without abnormal findings[ICD10: Z00.00] Diagnosis: Essential (primary) hypertension[ICD10: I10] Diagnosis: Chronic iridocyclitis, right eye[ICD10: H20.11] Diagnosis: Progressive systemic sclerosis[ICD10: M34.0] Dolores PAYTON [employer] CPT-4: 20184 06/06/2019 ([id number]) OFFICE/OUTPATIENT VISIT EST Diagnosis: Otalgia, left ear[ICD10: H92.02] Diagnosis: Unspecified perforation of tympanic membrane, left ear[ICD10: H72.92] Diagnosis: Otorrhagia, left ear[ICD10: H92.22] Paula [facility] CPT-4: 92776 08/28/2018 ([id number]) OFFICE/OUTPATIENT VISIT EST Diagnosis: FLU VACCINE[ICD10: Z23] Diagnosis: PNEUMOCOCCAL VACCINE[ICD10: Z23] Diagnosis: Essential (primary) hypertension[ICD10: I10] Diagnosis: Progressive systemic sclerosis[ICD10: M34.0] Dolores BERNAL [employer] CPT-4: 38663 05/29/2018 ([id number]) OFFICE/OUTPATIENT VISIT EST Diagnosis: Essential (primary) hypertension[ICD10: I10] Diagnosis: Tachycardia, unspecified[ICD10: R00.0] Diagnosis: Progressive systemic sclerosis[ICD10: M34.0] Diagnosis: Pain in right ankle and joints of right foot[ICD10: M25.571] Dolores BERNAL [employer] CPT-4: 13861 04/23/2018 ([id number]) OFFICE/OUTPATIENT VISIT EST Diagnosis: Essential (primary) hypertension[ICD10: I10] Diagnosis: Progressive systemic sclerosis[ICD10: M34.0] Diagnosis: Chronic iridocyclitis, right eye[ICD10: H20.11] Dolores BERNAL [employer] CPT-4: 56249 04/05/2018 ([id number]) OFFICE/OUTPATIENT VISIT NEW Diagnosis: Progressive systemic sclerosis[ICD10: M34.0] Diagnosis: Non-pressure chronic ulcer of left ankle with fat layer exposed[ICD10: L97.322] Diagnosis: Non-pressure chronic ulcer of right ankle with fat layer exposed[ICD10: L97.312] Diagnosis: Abnormal levels of other serum enzymes[ICD10: R74.8] Diagnosis: Essential (primary) hypertension[ICD10: I10] Dolores [employer] CPT-4: 55977 01/01/2018 Plan of Care Planned Activity Notes Codes Status Date Visit Diagnosis Plan: Progressive systemic sclerosis D iscussion: Following routinely with Dr. Bateman Discussed scleroderma center ICD-9 : 710.1 ICD-10 : M34.0 06/06/2019 Visit Diagnosis Plan: Encounter for [facility] adult medical examination without abnormal findings Discussion: Mediterranean diet Recommend PT to work on strengthening/gait/wheelchair Will inquire about flu shot at Dr. Gracia's office ICD-9 : V70.0 ICD-10 : Z00.00 06/06/2019 Visit Diagnosis Plan: Essential (primary) hypertension Discussion: Stable ICD-9 : 401.9 ICD-10 : I10 06/06/2019 Visit Diagnosis Plan: Chronic iridocyclitis, right eye Discussion: Established with new retinal specialist in [place] ICD-9 : 364.10 ICD-10 : H20.11 06/06/2019 Appointment: [facility]el[facility] [phone] [facility] [facility] 06/06/2019 Patient Education: clindamycin HCl- [employer] Coupon [id number] [email or web address] Completed 06/06/2019 Visit Diagnosis Plan: Otorrhagia, left ear Discussion: consulted with dr. payton. rocephin injection given in office. cipro drops prescribed to start tonight. referral made to dr. julio for evaluation of ear due to severity of bleeding and continuous pain. discussed wit hpatient that elevated bp most likely r/t severity of pain and bleeding of ear. will recheck bp once symptoms improve. ICD-9 : 388.69 ICD-10 : H92.22 08/28/2018 Visit Diagnosis Plan: Unspecified perforation of tympa janina membrane, left ear Discussion: see other plan ICD-9 : 384.20 ICD-10 : H72.92 08/28/2018 Visit Diagnosis Plan: Otalgia, left ear Discussion: se e other plan ICD-9 : 388.70 ICD-10 : H92.02 08/28/2018 Appointment: Paula Trujillo [address] [place], [place] [id number] ACUTE ILLNESS 08/28/2018 Visit Diagnosis Plan: Progressive systemic sclerosis D iscussion: Has fwup with rheumatology to go over test results Flu/Prevnar given ICD-9 : 710.1 ICD-10 : M34.0 05/29/2018 Visit Diagnosis Plan: Essential (primary) hypertension Discussion: Stable Continue current meds and monitor BP ICD-9 : 401.9 ICD-10 : I10 05/29/2018 Appointment: Dolores Payton WPtel: [address] [place], [place] [phone] FOLLOW UP 05/29/2018 Patient Education: Patient Medication Summary Completed 05/29/2018 Appointment: Dolores Payton WPtel: [address] [place], [place] [id number] 05/18/18 1200--moved appt to 05/29/18 at 3:30pm (km) CANCELED 05/22/2018 Visit Diagnosis Plan: Pain in right ankle and joints o f right foot Discussion: Check CBC, CMP, ESR, CRP, uric acid ICD-9 : 719.47 ICD-10 : M25.571 04/23/2018 Visit Diagnosis Plan: Essential (primary) hypertension Discussion: Decrease lisinopril to 20mg daily Monitor BP ICD-9 : 401.9 ICD-10 : I10 04/23/2018 Visit Diagnosis Plan: Tachycardia, unspecified Discuss ion: Add bisoprolol 10mg daily Monitor pulse Follow Up: 1 months ICD-9 : 785.0 ICD-10 : R00.0 04/23/2018 Appointment: Dolores Payton WPtel: [address] [place] [place] [id number] 04/23/2018 Patient Education: Patient Medication Summary Completed 04/23/2018 Visit Diagnosis Plan: Progressive systemic sclerosis D iscussion: Restart Cellcept Referral to new radiologist ICD-9 : 710.1 ICD-10 : M34.0 04/05/2018 Visit Diagnosis Plan: Chronic iridocyclitis, right eye Discussion: Kenalog/dexamethasone and prednisone taper Follow Up: 2 weeks ICD-9 : 364.10 ICD-10 : H20.11 04/05/2018 Visit Diagnosis Plan: Essential (primary) hypertension Discussion: Increase lisinopril to 40mg po daily Recheck 2 weeks ICD-9 : 401.9 ICD-10 : I10 04/05/2018 Appointment: Dolores Payton WPtel: [facility] ACUTE ILLNESS 04/05/2018 Patient Education: Patient Medication Summary Completed 04/05/2018 Care Plan: Referral Order SNOMED-CT : 30 [id number] Pending 04/05/2018 Visit Diagnosis Plan: Non-pressure chron ic ulcer of left ankle with fat layer exposed Discussion: Continue Bactrim and go back to wound care ICD-9 : 707.13 ICD-10 : L97.322 01/01/2018 Visit Diagnosis Plan: Essential (primary) hypertension Discussion: Stable on lisinopril ICD-9 : 401.9 ICD-10 : I10 01/01/2018 Visit Diagnosis Plan: Progressive systemic sclerosis D iscussion: Following with rheumatology in [place] Stopped Cellcept ICD-9 : 710.1 ICD-10 : M34.0 01/01/2018 Visit Diagnosis Plan: Abnormal levels of other serum e nzymes Discussion: Referral to GI as per rheumatology request ICD-9 : 790.5 ICD-10 : R74.8 01/01/2018 Appointment: Dolores Payton WPtel: [address] [place], [place] [id number] NEW PATIENT 01/01/2018 Patient Education: Patient Medication Summary Completed 01/01/2018 Care Plan: Referral Order SNOMED-CT : 30 [id number] Pending 01/01/2018 Appointment: Dolores Payton WPtel: [address] [place] [address] [place] CANCELED 10/11/2017 Referral: Eliel Recinos WPtel: [address] [facility] [address] [id number] [place] Referral Appointment Requested Referral: Broderick Cantu WPtel: [address] [facility] [address] [id number] [place] Referral Appointment Requested Instructions No Instructions Medical Equipment No Medical Equipment data Health Concerns Section Health Concerns data not found Goals Section Goals data not found Interventions Section Interventions data not found Health Status Evaluations/Outcomes Section Health Status Evaluations/Outcomes data not found Advance Directives No Advance Directive data
--- OUTSIDE RECORDS SUMMARY | 2019-10-30 09:50 | XMS REPORT | Continuity of Care Document ---
Author Organization Unknown Address Unknown Phone Unavailable Allergies Active Description Code Type Severity Reaction Onset Reported/Identified Relationship to Patient Clinical Status Yes No Allergy Information Available [id number] Drug Allergy Unknown N/A 018 Medications There is no data. Problems Date Dx Coded Attending Type Code Diagnosis Diagnosed By 05/22/2017 ROLY LOMBARDO, CONNOR Ponce Ot M34.9 SYSTEMIC SCLEROSIS, UNSPECIFIED 05/31/2017 ROLY LOMBARDO, CONNOR Ponce Ot M34.9 SYSTEMIC SCLEROSIS, UNSPECIFIED 06/28/2017 ROLY LOMBARDO, CONNOR Ponce Ot M34.9 SYSTEMIC SCLEROSIS, UNSPECIFIED 08/17/2017 ROLY LOMBARDO, CONNOR Ponce Ot M34.9 SYSTEMIC SCLEROSIS, UNSPECIFIED 08/18/2017 ROLY LOMBARDO, CONNOR Ponce Ot M34.9 SYSTEMIC SCLEROSIS, UNSPECIFIED 10/06/2017 LARY PRESLEY MD Ot I70.234 ATHSCL WIYOT ART OF RIGHT LEG W ULCER O 10/06/2017 LARY PRESLEY MD Ot I70.244 ATHSCL WIYOT ART OF LEFT LEG W ULCER OF 10/06/2017 LARY PRESLEY MD Ot L97.312 NON-PRS CHRONIC ULCER OF RIGHT ANKLE W F 10/06/2017 LARY PRESLEY MD Ot L97.322 NON-PRESSURE CHRONIC ULCER OF LEFT ANKLE 10/06/2017 LARY PRESLEY MD Ot L97.412 NON-PRS CHR ULCER OF RIGHT HEEL AND MIDF 10/06/2017 LARY PRESLEY MD Ot L97.422 NON-PRS CHR ULCER OF LEFT HEEL AND MIDFO 10/06/2017 LARY PRESLEY MD, Ot M34 .9 SYSTEMIC SCLEROSIS, UNSPECIFIED 10/16/2017 LARY PRESLEY MD Ot I70.234 ATHSCL WIYOT ART OF RIGHT LEG W ULCER O 10/16/2017 LARY PRESLEY MD Ot I70.244 ATHSCL WIYOT ART OF LEFT LEG W ULCER OF 10/16/2017 LARY PRESLEY MD Ot L97.312 NON-PRS CHRONIC ULCER OF RIGHT ANKLE W F 10/16/2017 LARY PRESLEY MD Ot L97.322 NON-PRESSURE CHRONIC ULCER OF LEFT ANKLE 10/16/2017 LARY PRESLEY MD Ot L97.412 NON-PRS CHR ULCER OF RIGHT HEEL AND MIDF 10/16/2017 LARY PRESLEY MD Ot L97.422 NON-PRS CHR ULCER OF LEFT HEEL AND MIDFO 10/16/2017 LARY PRESLEY MD, Ot M34 .9 SYSTEMIC SCLEROSIS, UNSPECIFIED 10/18/2017 LARY PRESLEY MD Ot I70.234 ATHSCL WIYOT ART OF RIGHT LEG W ULCER O 10/18/2017 LARY PRESLEY MD Ot I70.244 ATHSCL WIYOT ART OF LEFT LEG W ULCER OF 10/18/2017 LARY PRESLEY MD Ot L97.312 NON-PRS CHRONIC ULCER OF RIGHT ANKLE W F 10/18/2017 LARY PRESLEY MD Ot L97.322 NON-PRESSURE CHRONIC ULCER OF LEFT ANKLE 10/18/2017 LARY PRESLEY MD Ot L97.412 NON-PRS CHR ULCER OF RIGHT HEEL AND MIDF 10/18/2017 LARY PRESLEY MD Ot L97.422 NON-PRS CHR ULCER OF LEFT HEEL AND MIDFO 10/18/2017 LARY PRSELEY MD, Ot M34 .9 SYSTEMIC SCLEROSIS, UNSPECIFIED 10/29/2017 LARY PRESLEY MD Ot I70.231 ATHSCL WIYOT ARTERIES OF RIGHT LEG W UL 10/29/2017 LARY PRESLEY MD Ot I70.244 ATHSCL WIYOT ART OF LEFT LEG W ULCER OF 10/29/2017 LARY PRESLEY MD Ot I87.333 CHRONIC VENOUS HTN W ULCER AND INFLAM OF 10/29/2017 LARY PRESLEY MD Ot L97.312 NON-PRS CHRONIC ULCER OF RIGHT ANKLE W F 10/29/2017 LARY PRESLEY MD Ot L97.322 NON-PRESSURE CHRONIC ULCER OF LEFT ANKLE 10/29/2017 LARY PRSELEY MD Ot M34 .9 SYSTEMIC SCLEROSIS, UNSPECIFIED 11/20/2017 LARY PRESLEY MD Ot I70.234 ATHSCL WIYOT ART OF RIGHT LEG W ULCER O 11/20/2017 LARY PRESLEY MD Ot I70.244 ATHSCL WIYOT ART OF LEFT LEG W ULCER OF 11/20/2017 LARY PRESLEY MD Ot I87.333 CHRONIC VENOUS HTN W ULCER AND INFLAM OF 11/20/2017 LARY PRESLEY MD Ot L97.312 NON-PRS CHRONIC ULCER OF RIGHT ANKLE W F 11/20/2017 LARY PRESLEY MD, Ot L97.322 NON-PRESSURE CHRONIC ULCER OF LEFT ANKLE 11/20/2017 LARY PRESLEY MD, Ot M34 .9 SYSTEMIC SCLEROSIS, UNSPECIFIED 11/28/2017 LARY PRESLEY MD Ot I70.234 ATHSCL WIYOT ART OF RIGHT LEG W ULCER O 11/28/2017 LARY PRESLEY MD Ot L97.312 NON-PRS CHRONIC ULCER OF RIGHT ANKLE W F 11/29/2017 LARY PRESLEY MD Ot I70.234 ATHSCL WIYOT ART OF RIGHT LEG W ULCER O 11/29/2017 LARY PRESLEY MD, Ot L97.312 NON-PRS CHRONIC ULCER OF RIGHT ANKLE W F 02/01/2018 ROE LOMBARDO, HELENE P Ot R94. 5 ABNORMAL RESULTS OF LIVER FUNCTION STUDI 02/15/2018 ROE LOMBARDO, HELENE P Ot R94. 5 ABNORMAL RESULTS OF LIVER FUNCTION STUDI 04/19/2018 LARY PRESLEY MD Ot I70.234 ATHSCL WIYOT ART OF RIGHT LEG W ULCER O 04/19/2018 LARY PRESLEY MD Ot I70.244 ATHSCL WIYOT ART OF LEFT LEG W ULCER OF 04/19/2018 LARY PRESLEY MD Ot L97.312 NON-PRS CHRONIC ULCER OF RIGHT ANKLE W F 04/19/2018 LARY PRESLEY MD Ot L97.322 NON-PRESSURE CHRONIC ULCER OF LEFT ANKLE 04/19/2018 LARY PRESLEY MD Ot L97.412 NON-PRS CHR ULCER OF RIGHT HEEL AND MIDF 04/19/2018 LARY PRESLEY MD Ot L97.422 NON-PRS CHR ULCER OF LEFT HEEL AND MIDFO 04/19/2018 LARY PRESLEY MD, Ot M34 .9 SYSTEMIC SCLEROSIS, UNSPECIFIED 04/19/2018 LARY PRESLEY MD Ot I70.234 ATHSCL WIYOT ART OF RIGHT LEG W ULCER O 04/19/2018 LARY PRESLEY MD Ot I70.244 ATHSCL WIYOT ART OF LEFT LEG W ULCER OF 04/19/2018 LARY PRESLEY MD Ot L97.312 NON-PRS CHRONIC ULCER OF RIGHT ANKLE W F 04/19/2018 LARY PRESLEY MD Ot L97.322 NON-PRESSURE CHRONIC ULCER OF LEFT ANKLE 04/19/2018 LARY PRESLEY MD Ot L97.412 NON-PRS CHR ULCER OF RIGHT HEEL AND MIDF 04/19/2018 LARY PRESLEY MD Ot L97.422 NON-PRS CHR ULCER OF LEFT HEEL AND MIDFO 04/19/2018 LARY PRESLEY MD, Ot M34 .9 SYSTEMIC SCLEROSIS, UNSPECIFIED 04/19/2018 LARY PRESLEY MD Ot I70.231 ATHSCL WIYOT ARTERIES OF RIGHT LEG W UL 04/19/2018 LARY PRESLEY MD Ot I70.244 ATHSCL WIYOT ART OF LEFT LEG W ULCER OF 04/19/2018 LARY PRESLEY MD Ot I87.333 CHRONIC VENOUS HTN W ULCER AND INFLAM OF 04/19/2018 LARY PRESLEY MD Ot L97.312 NON-PRS CHRONIC ULCER OF RIGHT ANKLE W F 04/19/2018 LARY PRESLEY MD Ot L97.322 NON-PRESSURE CHRONIC ULCER OF LEFT ANKLE 04/19/2018 LARY PRESLEY MD, Ot M34 .9 SYSTEMIC SCLEROSIS, UNSPECIFIED 04/19/2018 LARY PRESLEY MD Ot I70.234 ATHSCL WIYOT ART OF RIGHT LEG W ULCER O 04/19/2018 LARY PRESLEY MD Ot I70.244 ATHSCL WIYOT ART OF LEFT LEG W ULCER OF 04/19/2018 LARY PRESLEY MD Ot I87.333 CHRONIC VENOUS HTN W ULCER AND INFLAM OF 04/19/2018 LARY PRESLEY MD Ot L97.312 NON-PRS CHRONIC ULCER OF RIGHT ANKLE W F 04/19/2018 LARY PRESLEY MD Ot L97.322 NON-PRESSURE CHRONIC ULCER OF LEFT ANKLE 04/19/2018 LARY PRESLEY MD, Ot M34 .9 SYSTEMIC SCLEROSIS, UNSPECIFIED 04/25/2018 DOLORES LUCERO DO Ot M34.9 SYSTEMIC SCLEROSIS, UNSPECIFIED 05/09/2018 DOLORES LUCERO DO Ot M34.9 SYSTEMIC SCLEROSIS, UNSPECIFIED 06/21/2018 LARY PRESLEY MD Ot I70.234 ATHSCL WIYOT ART OF RIGHT LEG W ULCER O 06/21/2018 LARY PRESLEY MD Ot I70.244 ATHSCL WIYOT ART OF LEFT LEG W ULCER OF 06/21/2018 LARY PRESLEY MD Ot L97.312 NON-PRS CHRONIC ULCER OF RIGHT ANKLE W F 06/21/2018 LARY PRESLEY MD Ot L97.322 NON-PRESSURE CHRONIC ULCER OF LEFT ANKLE 06/21/2018 LARY PRESLEY MD Ot L97.412 NON-PRS CHR ULCER OF RIGHT HEEL AND MIDF 06/21/2018 LARY PRESLEY MD Ot L97.422 NON-PRS CHR ULCER OF LEFT HEEL AND MIDFO 06/21/2018 LARY PRESLEY MD, Ot M34 .9 SYSTEMIC SCLEROSIS, UNSPECIFIED 06/21/2018 LARY PRESLEY MD Ot I70.234 ATHSCL WIYOT ART OF RIGHT LEG W ULCER O 06/21/2018 LARY PRESLEY MD Ot I70.244 ATHSCL WIYOT ART OF LEFT LEG W ULCER OF 06/21/2018 LARY PRESLEY MD Ot L97.312 NON-PRS CHRONIC ULCER OF RIGHT ANKLE W F 06/21/2018 LARY PRESLEY MD Ot L97.322 NON-PRESSURE CHRONIC ULCER OF LEFT ANKLE 06/21/2018 LARY PRESLEY MD Ot L97.412 NON-PRS CHR ULCER OF RIGHT HEEL AND MIDF 06/21/2018 LARY PRESLEY MD Ot L97.422 NON-PRS CHR ULCER OF LEFT HEEL AND MIDFO 06/21/2018 LARY PRESLEY MD, Ot M34 .9 SYSTEMIC SCLEROSIS, UNSPECIFIED 06/21/2018 LARY PRESLEY MD Ot I70.231 ATHSCL WIYOT ARTERIES OF RIGHT LEG W UL 06/21/2018 LARY PRESLEY MD Ot I70.244 ATHSCL WIYOT ART OF LEFT LEG W ULCER OF 06/21/2018 LARY PRESLEY MD Ot I87.333 CHRONIC VENOUS HTN W ULCER AND INFLAM OF 06/21/2018 LARY PRESLEY MD Ot L97.312 NON-PRS CHRONIC ULCER OF RIGHT ANKLE W F 06/21/2018 LARY PRESLEY MD Ot L97.322 NON-PRESSURE CHRONIC ULCER OF LEFT ANKLE 06/21/2018 LARY PRESLEY MD, Ot M34 .9 SYSTEMIC SCLEROSIS, UNSPECIFIED 06/21/2018 LARY PRESLEY MD Ot I70.234 ATHSCL WIYOT ART OF RIGHT LEG W ULCER O 06/21/2018 LARY PRESLEY MD Ot I70.244 ATHSCL WIYOT ART OF LEFT LEG W ULCER OF 06/21/2018 LARY PRESLEY MD Ot I87.333 CHRONIC VENOUS HTN W ULCER AND INFLAM OF 06/21/2018 LARY PRESLEY MD, Ot L97.312 NON-PRS CHRONIC ULCER OF RIGHT ANKLE W F 06/21/2018 LARY PRESLEY MD Ot L97.322 NON-PRESSURE CHRONIC ULCER OF LEFT ANKLE 06/21/2018 LARY PRESLEY MD, Ot M34 .9 SYSTEMIC SCLEROSIS, UNSPECIFIED 06/21/2018 DOLORES LUCERO DO Ot M34.9 SYSTEMIC SCLEROSIS, UNSPECIFIED 07/10/2018 ROLY LOMBARDO, CONNOR Ponce Ot M34.9 SYSTEMIC SCLEROSIS, UNSPECIFIED 07/11/2018 LUIS LAUGHLIN APRN Ot J98.11 ATELECTASIS 07/11/2018 LUIS LAUGHLIN APRN Ot 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 07/11/2018 LUIS LAUGHLIN APRN Ot M34.9 SYSTEMIC SCLEROSIS, UNSPECIFIED 07/11/2018 LUIS LAUGHLIN APRN Ot R94.2 ABNORMAL RESULTS OF PULMONARY FUNCTION S 07/27/2018 LARY PRESLEY MD Ot I70.234 ATHSCL WIYOT ART OF RIGHT LEG W ULCER O 07/27/2018 LARY PRESLEY MD Ot I70.244 ATHSCL WIYOT ART OF LEFT LEG W ULCER OF 07/27/2018 LARY PRESLEY MD Ot L97.312 NON-PRS CHRONIC ULCER OF RIGHT ANKLE W F 07/27/2018 LARY PRESLEY MD Ot L97.322 NON-PRESSURE CHRONIC ULCER OF LEFT ANKLE 07/27/2018 LARY PRESLEY MD Ot L97.412 NON-PRS CHR ULCER OF RIGHT HEEL AND MIDF 07/27/2018 LARY PRESLEY MD Ot L97.422 NON-PRS CHR ULCER OF LEFT HEEL AND MIDFO 07/27/2018 LARY PRESLEY MD, Ot M34 .9 SYSTEMIC SCLEROSIS, UNSPECIFIED 07/27/2018 LARY PRESLEY MD Ot I70.234 ATHSCL WIYOT ART OF RIGHT LEG W ULCER O 07/27/2018 LARY PRESLEY MD Ot I70.244 ATHSCL WIYOT ART OF LEFT LEG W ULCER OF 07/27/2018 LARY PRESLEY MD Ot L97.312 NON-PRS CHRONIC ULCER OF RIGHT ANKLE W F 07/27/2018 LARY PRESLEY MD, Ot L97.322 NON-PRESSURE CHRONIC ULCER OF LEFT ANKLE 07/27/2018 LARY PRESLEY MD, Ot L97.412 NON-PRS CHR ULCER OF RIGHT HEEL AND MIDF 07/27/2018 LARY PRESLEY MD, Ot L97.422 NON-PRS CHR ULCER OF LEFT HEEL AND MIDFO 07/27/2018 LARY PRESLEY MD, Ot M34 .9 SYSTEMIC SCLEROSIS, UNSPECIFIED 07/27/2018 LARY PRESLEY MD Ot I70.231 ATHSCL WIYOT ARTERIES OF RIGHT LEG W UL 07/27/2018 LARY PRESLEY MD, Ot I70.244 ATHSCL WIYOT ART OF LEFT LEG W ULCER OF 07/27/2018 LARY PRESLEY MD, Ot I87.333 CHRONIC VENOUS HTN W ULCER AND INFLAM OF 07/27/2018 LARY PRESLEY MD, Ot L97.312 NON-PRS CHRONIC ULCER OF RIGHT ANKLE W F 07/27/2018 LARY PRESLEY MD, Ot L97.322 NON-PRESSURE CHRONIC ULCER OF LEFT ANKLE 07/27/2018 LARY PRESLEY MD, Ot M34 .9 SYSTEMIC SCLEROSIS, UNSPECIFIED 07/27/2018 LARY PRESLEY MD Ot I70.234 ATHSCL WIYOT ART OF RIGHT LEG W ULCER O 07/27/2018 LARY PRESLEY MD Ot I70.244 ATHSCL WIYOT ART OF LEFT LEG W ULCER OF 07/27/2018 LARY PRESLEY MD Ot I87.333 CHRONIC VENOUS HTN W ULCER AND INFLAM OF 07/27/2018 LARY PRESLEY MD Ot L97.312 NON-PRS CHRONIC ULCER OF RIGHT ANKLE W F 07/27/2018 LARY PRESLEY MD, Ot L97.322 NON-PRESSURE CHRONIC ULCER OF LEFT ANKLE 07/27/2018 LARY PRESLEY MD, Ot M34 .9 SYSTEMIC SCLEROSIS, UNSPECIFIED 07/27/2018 DOLORES LUCERO DO Ot M34.9 SYSTEMIC SCLEROSIS, UNSPECIFIED 07/27/2018 JUAN NIETO Ot D47.2 MONOCLONAL GAMMOPATHY 07/27/2018 JUAN NIETO Ot D64.9 ANEMIA, UNSPECIFIED 07/27/2018 JUAN NIETO Ot I10 ESSENTIAL (PRIMARY) HYPERTENSION 07/27/2018 JUAN NIETO Ot 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 07/27/2018 JUAN NIETO N Ot M34.9 SYSTEMIC SCLEROSIS, UNSPECIFIED 07/27/2018 JUAN NIETO Ot Z79.899 OTHER TARIFF COMPILER (CURRENT) DRUG THERAPY 07/27/2018 LUIS LAUGHLIN POULTRY HUSBANDRY WORKER Ot J98.11 ATELECTASIS 07/27/2018 LUIS LAUGHLIN POULTRY HUSBANDRY WORKER Ot 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 07/27/2018 TRUMANLUIS HAND POULTRY HUSBANDRY WORKER Ot M34.9 SYSTEMIC SCLEROSIS, UNSPECIFIED 07/27/2018 LUIS LAUGHLIN POULTRY HUSBANDRY WORKER Ot R94.2 ABNORMAL RESULTS OF PULMONARY FUNCTION S 07/30/2018 JUAN NIETO N Ot M19.031 PRIMARY OSTEOARTHRITIS, RIGHT WRIST 07/30/2018 JUAN NIETO N Ot M19.032 PRIMARY OSTEOARTHRITIS, LEFT WRIST 07/30/2018 JUAN NIETO N Ot M34.9 SYSTEMIC SCLEROSIS, UNSPECIFIED 07/30/2018 JUAN NIETO N Ot M19.031 PRIMARY OSTEOARTHRITIS, RIGHT WRIST 07/30/2018 JUAN NIETO N Ot M19.032 PRIMARY OSTEOARTHRITIS, LEFT WRIST 07/30/2018 JUAN NIETO N Ot M34.9 SYSTEMIC SCLEROSIS, UNSPECIFIED 07/30/2018 LARY PRESLEY MD Ot I70.234 ATHSCL WIYOT ART OF RIGHT LEG W ULCER O 07/30/2018 LARY PRESLEY MD Ot I70.244 ATHSCL WIYOT ART OF LEFT LEG W ULCER OF 07/30/2018 LARY PRESLEY MD Ot L97.312 NON-PRS CHRONIC ULCER OF RIGHT ANKLE W F 07/30/2018 LARY PRESLEY MD Ot L97.322 NON-PRESSURE CHRONIC ULCER OF LEFT ANKLE 07/30/2018 LARY PRESLEY MD Ot L97.412 NON-PRS CHR ULCER OF RIGHT HEEL AND MIDF 07/30/2018 LARY PRESLEY MD Ot L97.422 NON-PRS CHR ULCER OF LEFT HEEL AND MIDFO 07/30/2018 LARY PRESLEY MD Ot M34 .9 SYSTEMIC SCLEROSIS, UNSPECIFIED 07/30/2018 LARY PRESLEY MD Ot I70.234 ATHSCL WIYOT ART OF RIGHT LEG W ULCER O 07/30/2018 LARY PRESLEY MD Ot I70.244 ATHSCL WIYOT ART OF LEFT LEG W ULCER OF 07/30/2018 LARY PRESLEY MD, Ot L97.312 NON-PRS CHRONIC ULCER OF RIGHT ANKLE W F 07/30/2018 LARY PRESLEY MD Ot L97.322 NON-PRESSURE CHRONIC ULCER OF LEFT ANKLE 07/30/2018 LARY PRESLEY MD, Ot L97.412 NON-PRS CHR ULCER OF RIGHT HEEL AND MIDF 07/30/2018 LARY PRESLEY MD, Ot L97.422 NON-PRS CHR ULCER OF LEFT HEEL AND MIDFO 07/30/2018 LARY PRESLEY MD, Ot M34 .9 SYSTEMIC SCLEROSIS, UNSPECIFIED 07/30/2018 LARY PRESLEY MD Ot I70.231 ATHSCL WIYOT ARTERIES OF RIGHT LEG W UL 07/30/2018 LARY PRESLEY MD, Ot I70.244 ATHSCL WIYOT ART OF LEFT LEG W ULCER OF 07/30/2018 LARY PRESLEY MD Ot I87.333 CHRONIC VENOUS HTN W ULCER AND INFLAM OF 07/30/2018 LARY PRESLEY MD Ot L97.312 NON-PRS CHRONIC ULCER OF RIGHT ANKLE W F 07/30/2018 LARY PRESLEY MD Ot L97.322 NON-PRESSURE CHRONIC ULCER OF LEFT ANKLE 07/30/2018 LARY PRESLEY MD, Ot M34 .9 SYSTEMIC SCLEROSIS, UNSPECIFIED 07/30/2018 LARY PRESLEY MD Ot I70.234 ATHSCL WIYOT ART OF RIGHT LEG W ULCER O 07/30/2018 LARY PRESLEY MD Ot I70.244 ATHSCL WIYOT ART OF LEFT LEG W ULCER OF 07/30/2018 LARY PRESLEY MD Ot I87.333 CHRONIC VENOUS HTN W ULCER AND INFLAM OF 07/30/2018 LARY PRESLEY MD Ot L97.312 NON-PRS CHRONIC ULCER OF RIGHT ANKLE W F 07/30/2018 LARY PRESLEY MD Ot L97.322 NON-PRESSURE CHRONIC ULCER OF LEFT ANKLE 07/30/2018 LARY PRESLEY MD, Ot M34 .9 SYSTEMIC SCLEROSIS, UNSPECIFIED 07/30/2018 DOLORES LUCERO DO Ot M34.9 SYSTEMIC SCLEROSIS, UNSPECIFIED 07/30/2018 JUAN NIETO Ot D47.2 MONOCLONAL GAMMOPATHY 07/30/2018 JUAN NIETO Ot D64.9 ANEMIA, UNSPECIFIED 07/30/2018 JUAN NIETO Ot I10 ESSENTIAL (PRIMARY) HYPERTENSION 07/30/2018 EMILIA, BOBAN N Ot 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 07/30/2018 EMILIA, CONNERAN N Ot M34.9 SYSTEMIC SCLEROSIS, UNSPECIFIED 07/30/2018 EMILIA, BOBAN N Ot Z79.899 OTHER [facility] (CURRENT) DRUG THERAPY 07/30/2018 LUIS LAUGHLIN POULTRY HUSBANDRY WORKER Ot J98.11 ATELECTASIS 07/30/2018 TRUMANLUIS HAND POULTRY HUSBANDRY WORKER Ot 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 07/30/2018 TRUMANLUIS E POULTRY HUSBANDRY WORKER Ot M34.9 SYSTEMIC SCLEROSIS, UNSPECIFIED 07/30/2018 TRUMANLUIS HAND E POULTRY HUSBANDRY WORKER Ot R94.2 ABNORMAL RESULTS OF PULMONARY FUNCTION S 07/30/2018 EMILIA BOBAN N Ot M19.031 PRIMARY OSTEOARTHRITIS, RIGHT WRIST 07/30/2018 EMILIA, BOBAN N Ot M19.032 PRIMARY OSTEOARTHRITIS, LEFT WRIST 07/30/2018 EMILIA BOBAN N Ot M34.9 SYSTEMIC SCLEROSIS, UNSPECIFIED 08/09/2018 EMILIA BOBAN N Ot M19.031 PRIMARY OSTEOARTHRITIS, RIGHT WRIST 08/09/2018 EMILIA, BOBAN N Ot M19.032 PRIMARY OSTEOARTHRITIS, LEFT WRIST 08/09/2018 EMILIA, BOBAN N Ot M34.9 SYSTEMIC SCLEROSIS, UNSPECIFIED 08/23/2018 EMILIA, BOBAN N Ot D47.2 MONOCLONAL GAMMOPATHY 08/23/2018 EMILIA, BOBAN N Ot D64.9 ANEMIA, UNSPECIFIED 08/23/2018 EMILIA, BOBAN N Ot I10 ESSENTIAL (PRIMARY) HYPERTENSION 08/23/2018 EMILIA BOBAN N Ot 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 08/23/2018 EMILIA, BOBAN N Ot M34.9 SYSTEMIC SCLEROSIS, UNSPECIFIED 08/23/2018 EMILIA, BOBAN N Ot Z79.899 OTHER TARIFF COMPILER (CURRENT) DRUG THERAPY 09/26/2018 EMILIA, BOBAN N Ot D47.2 MONOCLONAL GAMMOPATHY 09/26/2018 EMILIA, BOBAN N Ot D64.9 ANEMIA, UNSPECIFIED 09/26/2018 EMILIA, BOBAN N Ot I10 ESSENTIAL (PRIMARY) HYPERTENSION 09/26/2018 EMILIA BOBAN N Ot 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 09/26/2018 EMILIA, BOBAN N Ot M34.9 SYSTEMIC SCLEROSIS, UNSPECIFIED 09/26/2018 JUAN NIETO Ot Z79.899 OTHER TARIFF COMPILER (CURRENT) DRUG THERAPY 10/08/2018 JUAN NIETO Ot D47.2 MONOCLONAL GAMMOPATHY 10/08/2018 JUAN NIETO N Ot D64.9 ANEMIA, UNSPECIFIED 10/08/2018 JUAN NIETO N Ot I10 ESSENTIAL (PRIMARY) HYPERTENSION 10/08/2018 JUAN NIETO Javi Ot 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 10/08/2018 JUAN NIETO N Ot M34.9 SYSTEMIC SCLEROSIS, UNSPECIFIED 10/08/2018 JUAN NIETO N Ot Z79.899 OTHER TARIFF COMPILER (CURRENT) DRUG THERAPY 10/09/2018 JUAN NIETO Ot D47.2 MONOCLONAL GAMMOPATHY 10/09/2018 JUAN NIETO Javi Ot D64.9 ANEMIA, UNSPECIFIED 10/09/2018 JUAN NIETO N Ot I10 ESSENTIAL (PRIMARY) HYPERTENSION 10/09/2018 JUAN NIETO Javi Ot 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 10/09/2018 JUAN NIETO Javi Ot M34.9 SYSTEMIC SCLEROSIS, UNSPECIFIED 10/09/2018 JUAN NIETO Javi Ot Z79.899 OTHER TARIFF COMPILER (CURRENT) DRUG THERAPY 11/07/2018 ORVILLE OLIVERA MD, Ot M34.9 SYSTEMIC SCLEROSIS, UNSPECIFIED 11/07/2018 ORVILLE OLIVERA MD Ot Z79.8 99 OTHER TARIFF COMPILER (CURRENT) DRUG THERAPY 01/16/2019 LARY PRESLEY MD Ot I70.234 ATHSCL WIYOT ART OF RIGHT LEG W ULCER O 01/16/2019 LARY PRESLEY MD Ot I70.244 ATHSCL WIYOT ART OF LEFT LEG W ULCER OF 01/16/2019 LARY PRESLEY MD, Ot L97.312 NON-PRS CHRONIC ULCER OF RIGHT ANKLE W F 01/16/2019 LARY PRESLEY MD, Ot L97.322 NON-PRESSURE CHRONIC ULCER OF LEFT ANKLE 01/16/2019 LARY PRESLEY MD, Ot L97.412 NON-PRS CHR ULCER OF RIGHT HEEL AND MIDF 01/16/2019 LARY PRESLEY MD, Ot L97.422 NON-PRS CHR ULCER OF LEFT HEEL AND MIDFO 01/16/2019 LARY PRESLEY MD, Ot M34 .9 SYSTEMIC SCLEROSIS, UNSPECIFIED 01/16/2019 LARY PRESLEY MD Ot I70.234 ATHSCL WIYOT ART OF RIGHT LEG W ULCER O 01/16/2019 LARY PRESLEY MD Ot I70.244 ATHSCL WIYOT ART OF LEFT LEG W ULCER OF 01/16/2019 LARY PRESLEY MD Ot L97.312 NON-PRS CHRONIC ULCER OF RIGHT ANKLE W F 01/16/2019 LARY PRESLEY MD Ot L97.322 NON-PRESSURE CHRONIC ULCER OF LEFT ANKLE 01/16/2019 LARY PRESLEY MD Ot L97.412 NON-PRS CHR ULCER OF RIGHT HEEL AND MIDF 01/16/2019 LARY PRESLEY MD Ot L97.422 NON-PRS CHR ULCER OF LEFT HEEL AND MIDFO 01/16/2019 LARY PRESLEY MD, Ot M34 .9 SYSTEMIC SCLEROSIS, UNSPECIFIED 01/16/2019 LARY PRESLEY MD Ot I70.231 ATHSCL WIYOT ARTERIES OF RIGHT LEG W UL 01/16/2019 LARY PRESLEY MD Ot I70.244 ATHSCL WIYOT ART OF LEFT LEG W ULCER OF 01/16/2019 LARY PRESLEY MD Ot I87.333 CHRONIC VENOUS HTN W ULCER AND INFLAM OF 01/16/2019 LARY PRESLEY MD Ot L97.312 NON-PRS CHRONIC ULCER OF RIGHT ANKLE W F 01/16/2019 LARY PRESLEY MD Ot L97.322 NON-PRESSURE CHRONIC ULCER OF LEFT ANKLE 01/16/2019 LARY PRESLEY MD, Ot M34 .9 SYSTEMIC SCLEROSIS, UNSPECIFIED 01/16/2019 LARY PRESLEY MD Ot I70.234 ATHSCL WIYOT ART OF RIGHT LEG W ULCER O 01/16/2019 LARY PRESLEY MD Ot I70.244 ATHSCL WIYOT ART OF LEFT LEG W ULCER OF 01/16/2019 LARY PRESLEY MD Ot I87.333 CHRONIC VENOUS HTN W ULCER AND INFLAM OF 01/16/2019 LARY PRESLEY MD Ot L97.312 NON-PRS CHRONIC ULCER OF RIGHT ANKLE W F 01/16/2019 LARY PRESLEY MD Ot L97.322 NON-PRESSURE CHRONIC ULCER OF LEFT ANKLE 01/16/2019 LARY PRESLEY MD, Ot M34 .9 SYSTEMIC SCLEROSIS, UNSPECIFIED 01/16/2019 ORENDER DO, DOLORES S Ot M34.9 SYSTEMIC SCLEROSIS, UNSPECIFIED 01/16/2019 LUIS LAUGHLIN POULTRY HUSBANDRY WORKER Ot J98.11 ATELECTASIS 01/16/2019 LUIS LAUGHLIN POULTRY HUSBANDRY WORKER Ot 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 01/16/2019 LUIS LAUGHLIN POULTRY HUSBANDRY WORKER Ot M34.9 SYSTEMIC SCLEROSIS, UNSPECIFIED 01/16/2019 LUIS LAUGHLIN POULTRY HUSBANDRY WORKER Ot R94.2 ABNORMAL RESULTS OF PULMONARY FUNCTION S 01/16/2019 EMILIA JUAN N Ot M19.031 PRIMARY OSTEOARTHRITIS, RIGHT WRIST 01/16/2019 EMILIA, JUAN N Ot M19.032 PRIMARY OSTEOARTHRITIS, LEFT WRIST 01/16/2019 EMILIA, JUAN N Ot M34.9 SYSTEMIC SCLEROSIS, UNSPECIFIED 01/16/2019 EMILIAJUAN N Ot D47.2 MONOCLONAL GAMMOPATHY 01/16/2019 EMILIAJUAN N Ot D64.9 ANEMIA, UNSPECIFIED 01/16/2019 EMILIA, BOBAN N Ot I10 ESSENTIAL (PRIMARY) HYPERTENSION 01/16/2019 JUAN NIETO N Ot 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 01/16/2019 EMILIAJUAN N Ot M34.9 SYSTEMIC SCLEROSIS, UNSPECIFIED 01/16/2019 EMILIAJUAN N Ot Z79.899 OTHER TARIFF COMPILER (CURRENT) DRUG THERAPY 01/16/2019 ORVILLE OLIVERA MD Ot M34.9 SYSTEMIC SCLEROSIS, UNSPECIFIED 01/16/2019 ORVILLE OLIVERA MD Ot Z79.8 99 OTHER [facility] (CURRENT) DRUG THERAPY 01/22/2019 ORVILLE OLIVERA MD Ot Z51.8 1 ENCOUNTER FOR THERAPEUTIC DRUG LEVEL MON 01/22/2019 ORVILLE OLIVERA MD B Ot Z79.8 99 OTHER [facility] (CURRENT) DRUG THERAPY 01/30/2019 ORVILLE OLIVERA MD Ot Z51.8 1 ENCOUNTER FOR THERAPEUTIC DRUG LEVEL MON 01/30/2019 ORVILLE OLIVERA MD B Ot Z79.8 99 OTHER TARIFF COMPILER (CURRENT) DRUG THERAPY 02/17/2019 JUAN NIETO N Ot D47.2 MONOCLONAL GAMMOPATHY 02/17/2019 JUAN NIETO N Ot D64.9 ANEMIA, UNSPECIFIED 02/17/2019 EMILIA, BOBAN N Ot I10 ESSENTIAL (PRIMARY) HYPERTENSION 02/17/2019 JUAN NIETO N Ot 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 02/17/2019 JUAN NIETO N Ot M34.9 SYSTEMIC SCLEROSIS, UNSPECIFIED 02/17/2019 JUAN NIETO N Ot Z79.899 OTHER [facility] (CURRENT) DRUG THERAPY 02/18/2019 JUAN NIETO N Ot D47.2 MONOCLONAL GAMMOPATHY 02/18/2019 JUAN NIETO N Ot D64.9 ANEMIA, UNSPECIFIED 02/18/2019 EMILIAJUAN N Ot I10 ESSENTIAL (PRIMARY) HYPERTENSION 02/18/2019 JUAN NIETO N Ot 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 02/18/2019 EMILIA, JUAN N Ot M34.9 SYSTEMIC SCLEROSIS, UNSPECIFIED 02/18/2019 JUAN NIETO N Ot Z79.899 OTHER TARIFF COMPILER (CURRENT) DRUG THERAPY 07/31/2019 JOSELIN LOMBARDO, [place] B Ot M34.9 SYSTEMIC SCLEROSIS, UNSPECIFIED 07/31/2019 JOSELIN LOMBARDO, [place] B Ot Z79.8 99 OTHER [facility] (CURRENT) DRUG THERAPY 08/21/2019 JUAN NIETO N Ot D47.2 MONOCLONAL GAMMOPATHY 08/21/2019 JUAN NIETO N Ot D64.9 ANEMIA, UNSPECIFIED 08/21/2019 EMILIA BOBFREDDY N Ot I10 ESSENTIAL (PRIMARY) HYPERTENSION 08/21/2019 JUAN NIETO N Ot 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 Results Test Result Range Complete blood count (CBC) with automate d white blood cell (WBC) differential - 05/19/17 12:48 Blood leukocytes automated count (number/volume) 4.6 10*3/uL 4.3-11.0 Blood erythrocytes automated count (number/volume) 4.29 10*6/uL 4.35-5.85 Venous blood hemoglobin measurement (mass/volume) 12.5 g/dL 11.5-16.0 Blood hematocrit (volume fraction) 39 % 35-52 Automated erythrocyte mean corpuscular volume 92 [ foz_us] 80-99 Automated erythrocyte mean corpuscular h emoglobin (mass per erythrocyte) 29 pg 25-34 Automated erythrocyte mean corpuscular h emoglobin concentration measurement (mass/volume) 32 g/dL 32-36 Automated erythrocyte distribution width ratio 13. 8 % 10.0- 14.5 Automated blood platelet count (count/volume) 426 10*3/uL 130-400 Automated blood platelet mean volume measurement 8.9 [foz_us] 7.4-10.4 Automated blood neutrophils/100 leukocytes 51 % 42-75 Automated blood lymphocytes/100 leukocytes 36 % 12-44 Blood monocytes/100 leukocytes 12 % 0-12 Automated blood eosinophils/100 leukocytes 1 % 0-10 Automated blood basophils/100 leukocytes 1 % 0-10 Blood neutrophils automated count (number/volume) 2.3 10*3 1.8-7.8 Blood lymphocytes automated count (number/volume) 1.6 10*3 1.0-4.0 Blood monocytes automated count (number/volume) 0. 5 10*3 0.0-1.0 Automated eosinophil count 0.1 10*3/uL 0 .0-0.3 Automated blood basophil count (count/volume) 0.0 10*3/uL 0.0-0.1 Comprehensive metabolic panel - 05/19/17 12:48 Serum or plasma sodium measurement (moles/volume) 138 mmol/L 135-145 Serum or plasma potassium measurement (moles/volume) 3.9 mmol/L 3.6-5.0 Serum or plasma chloride measurement (moles/volume) 108 mmol/L 98-107 Carbon dioxide 23 mmol/L 21-32 Serum or plasma anion gap determination (moles/volume) 7 mmol/L 5-14 Serum or plasma urea nitrogen measurement (mass/volume ) 9 mg/dL 7-18 Serum or plasma creatinine measurement (mass/volume) 0.65 mg/dL 0.60-1.30 Serum or plasma urea nitrogen/creatinine mass ratio 14 NRG Serum or plasma creatinine measurement w ith calculation of estimated glomerular filtration rate > NRG Serum or plasma glucose measurement (mass/volume) 106 mg/dL 70-105 Serum or plasma calcium measurement (mass/volume) 9.9 mg/dL 8.5-10.1 Serum or plasma total bilirubin measurement (mass/volu me) 0.5 mg/dL 0.1-1.0 Serum or plasma alkaline phosphatase moses surement (enzymatic activity/volume) 140 U/L 40-136 Serum or plasma aspartate aminotransfera se measurement (enzymatic activity/volume) 71 U/L 5-34 Serum or plasma alanine aminotransferase measurement (enzymatic activity/volume) 100 U/L 0-55 Serum or plasma protein measurement (mass/volume) 8.6 g/dL 6.4-8.2 Serum or plasma albumin measurement (mass/volume) 4.1 g/dL 3.2-4.5 Complete blood count (CBC) with automate d white blood cell (WBC) differential - 11/15/17 15:48 Blood leukocytes automated count (number/volume) 5.7 10*3/uL 4.3-11.0 Blood erythrocytes automated count (number/volume) 3.90 10*6/uL 4.35-5.85 Venous blood hemoglobin measurement (mass/volume) 11.9 g/dL 11.5-16.0 Blood hematocrit (volume fraction) 36 % 35-52 Automated erythrocyte mean corpuscular volume 92 [ foz_us] 80-99 Automated erythrocyte mean corpuscular h emoglobin (mass per erythrocyte) 31 pg 25-34 Automated erythrocyte mean corpuscular h emoglobin concentration measurement (mass/volume) 33 g/dL 32-36 Automated erythrocyte distribution width ratio 13. 6 % 10.0- 14.5 Automated blood platelet count (count/volume) 316 10*3/uL 130-400 Automated blood platelet mean volume measurement 9.1 [foz_us] 7.4-10.4 Automated blood neutrophils/100 leukocytes 62 % 42-75 Automated blood lymphocytes/100 leukocytes 25 % 12-44 Blood monocytes/100 leukocytes 10 % 0-12 Automated blood eosinophils/100 leukocytes 3 % 0-10 Automated blood basophils/100 leukocytes 0 % 0-10 Blood neutrophils automated count (number/volume) 3.6 10*3 1.8-7.8 Blood lymphocytes automated count (number/volume) 1.4 10*3 1.0-4.0 Blood monocytes automated count (number/volume) 0. 6 10*3 0.0-1.0 Automated eosinophil count 0.1 10*3/uL 0 .0-0.3 Automated blood basophil count (count/volume) 0.0 10*3/uL 0.0-0.1 Comprehensive metabolic panel - 04/04/18 15:48 Serum or plasma sodium measurement (moles/volume) 140 mmol/L 135-145 Serum or plasma potassium measurement (moles/volume) 3.8 mmol/L 3.6-5.0 Serum or plasma chloride measurement (moles/volume) 109 mmol/L 98-107 Carbon dioxide 25 mmol/L 21-32 Serum or plasma anion gap determination (moles/volume) 6 mmol/L 5-14 Serum or plasma urea nitrogen measurement (mass/volume ) 7 mg/dL 7-18 Serum or plasma creatinine measurement (mass/volume) 0.57 mg/dL 0.60-1.30 Serum or plasma urea nitrogen/creatinine mass ratio 12 NRG Serum or plasma creatinine measurement w ith calculation of estimated glomerular filtration rate > NRG Serum or plasma glucose measurement (mass/volume) 98 mg/dL 70-105 Serum or plasma calcium measurement (mass/volume) 9.3 mg/dL 8.5-10.1 Serum or plasma total bilirubin measurement (mass/volu me) 0.4 mg/dL 0.1-1.0 Serum or plasma alkaline phosphatase moses surement (enzymatic activity/volume) 98 U/L 40-136 Serum or plasma aspartate aminotransfera se measurement (enzymatic activity/volume) 52 U/L 5-34 Serum or plasma alanine aminotransferase measurement (enzymatic activity/volume) 72 U/L 0-55 Serum or plasma protein measurement (mass/volume) 8.0 g/dL 6.4-8.2 Serum or plasma albumin measurement (mass/volume) 4.0 g/dL 3.2-4.5 Serum or plasma creatine kinase measurem ent (enzymatic activity/volume) - 01/29/18 14:17 Serum or plasma creatine kinase measurem ent (enzymatic activity/volume) 235 U/L 29-168 Serum aldolase measurement - 01/29/18 14 :17 Serum aldolase measurement 6.8 U/L 1.5 -8.1 Creatine kinase isoforms assay - 8 14:17 Serum or plasma creatine kinase MB measu rement (enzymatic activity/volume) 4 % 0-4 Serum or plasma creatine kinase BB measu rement (enzymatic activity/volume) by electrophoresis 0 % 0-0 Serum or plasma creatine kinase MM fract ion/total creatine kinase enzymatic ratio 96 % 96-100 Cerebrospinal fluid creatine kinase nathan urement (enzymatic activity/volume) 235 U/L 20-180 Macroenzyme creatine kinase (CK) type 1 measurement 0 % 0-0 Macroenzyme creatine kinase (CK) type 2 measurement 0 % 0-0 Complete blood count (CBC) with automate d white blood cell (WBC) differential - 10/23/18 16:43 Blood leukocytes automated count (number/volume) 3.9 10*3/uL 4.3-11.0 Blood erythrocytes automated count (number/volume) 4.11 10*6/uL 4.35-5.85 Venous blood hemoglobin measurement (mass/volume) 12.1 g/dL 11.5-16.0 Blood hematocrit (volume fraction) 37 % 35-52 Automated erythrocyte mean corpuscular volume 90 [ foz_us] 80-99 Automated erythrocyte mean corpuscular h emoglobin (mass per erythrocyte) 29 pg 25-34 Automated erythrocyte mean corpuscular h emoglobin concentration measurement (mass/volume) 33 g/dL 32-36 Automated erythrocyte distribution width ratio 14. 5 % 10.0- 14.5 Automated blood platelet count (count/volume) 349 10*3/uL 130-400 Automated blood platelet mean volume measurement 8.8 [foz_us] 7.4-10.4 Automated blood neutrophils/100 leukocytes 46 % 42-75 Automated blood lymphocytes/100 leukocytes 42 % 12-44 Blood monocytes/100 leukocytes 9 % 0-12 Automated blood eosinophils/100 leukocytes 3 % 0-10 Automated blood basophils/100 leukocytes 1 % 0-10 Blood neutrophils automated count (number/volume) 1.8 10*3 1.8-7.8 Blood lymphocytes automated count (number/volume) 1.6 10*3 1.0-4.0 Blood monocytes automated count (number/volume) 0. 3 10*3 0.0-1.0 Automated eosinophil count 0.1 10*3/uL 0 .0-0.3 Automated blood basophil count (count/volume) 0.0 10*3/uL 0.0-0.1 Comprehensive metabolic panel - 10/23/18 16:43 Serum or plasma sodium measurement (moles/volume) 139 mmol/L 135-145 Serum or plasma potassium measurement (moles/volume) 3.8 mmol/L 3.6-5.0 Serum or plasma chloride measurement (moles/volume) 106 mmol/L 98-107 Carbon dioxide 24 mmol/L 21-32 Serum or plasma anion gap determination (moles/volume) 9 mmol/L 5-14 Serum or plasma urea nitrogen measurement (mass/volume ) 9 mg/dL 7-18 Serum or plasma creatinine measurement (mass/volume) 0.60 mg/dL 0.60-1.30 Serum or plasma urea nitrogen/creatinine mass ratio 15 NRG Serum or plasma creatinine measurement w ith calculation of estimated glomerular filtration rate > NRG Serum or plasma glucose measurement (mass/volume) 94 mg/dL 70-105 Serum or plasma calcium measurement (mass/volume) 9.6 mg/dL 8.5-10.1 Serum or plasma total bilirubin measurement (mass/volu me) 0.5 mg/dL 0.1-1.0 Serum or plasma alkaline phosphatase moses surement (enzymatic activity/volume) 104 U/L 40-136 Serum or plasma aspartate aminotransfera se measurement (enzymatic activity/volume) 35 U/L 5-34 Serum or plasma alanine aminotransferase measurement (enzymatic activity/volume) 32 U/L 0-55 Serum or plasma protein measurement (mass/volume) 8.0 g/dL 6.4-8.2 Serum or plasma albumin measurement (mass/volume) 3.9 g/dL 3.2-4.5 CALCIUM CORRECTED 9.7 mg/dL 8.5-10.1 Serum or plasma C reactive protein measu rement (mass/volume) - 10/23/18 16:43 Serum or plasma C reactive protein measurement (mass/v olume) 1.01 mg/dL 0.00-0.50 Erythrocyte sedimentation rate by gilbert gren method - 10/23/18 16:43 Erythrocyte sedimentation rate by westergren method 56 mm 0- 30 THIOPURINE METHYLTRANSFERASE A - 9 16:00 TPMT ACT 21.6 u[iU]/mL 24.0-44.0 Complete blood count (CBC) with automate d white blood cell (WBC) differential - 04/14/19 17:05 Blood leukocytes automated count (number/volume) 3.5 10*3/uL 4.3-11.0 Blood erythrocytes automated count (number/volume) 4.01 10*6/uL 4.35-5.85 Venous blood hemoglobin measurement (mass/volume) 11.2 g/dL 11.5-16.0 Blood hematocrit (volume fraction) 36 % 35-52 Automated erythrocyte mean corpuscular volume 89 [ foz_us] 80-99 Automated erythrocyte mean corpuscular h emoglobin (mass per erythrocyte) 28 pg 25-34 Automated erythrocyte mean corpuscular h emoglobin concentration measurement (mass/volume) 32 g/dL 32-36 Automated erythrocyte distribution width ratio 15. 5 % 10.0- 14.5 Automated blood platelet count (count/volume) 403 10*3/uL 130-400 Automated blood platelet mean volume measurement 9.0 [foz_us] 7.4-10.4 Automated blood neutrophils/100 leukocytes 39 % 42-75 Automated blood lymphocytes/100 leukocytes 46 % 12-44 Blood monocytes/100 leukocytes 11 % 0-12 Automated blood eosinophils/100 leukocytes 3 % 0-10 Automated blood basophils/100 leukocytes 1 % 0-10 Blood neutrophils automated count (number/volume) 1.4 10*3 1.8-7.8 Blood lymphocytes automated count (number/volume) 1.6 10*3 1.0-4.0 Blood monocytes automated count (number/volume) 0. 4 10*3 0.0-1.0 Automated eosinophil count 0.1 10*3/uL 0 .0-0.3 Automated blood basophil count (count/volume) 0.0 10*3/uL 0.0-0.1 Erythrocyte sedimentation rate by gilbert gren method - 04/14/19 17:05 Erythrocyte sedimentation rate by westergren method 73 mm 0- 30 Comprehensive metabolic panel - 04/14/19 17:05 Serum or plasma sodium measurement (moles/volume) 136 mmol/L 135-145 Serum or plasma potassium measurement (moles/volume) 4.0 mmol/L 3.6-5.0 Serum or plasma chloride measurement (moles/volume) 109 mmol/L 98-107 Carbon dioxide 20 mmol/L 21-32 Serum or plasma anion gap determination (moles/volume) 7 mmol/L 5-14 Serum or plasma urea nitrogen measurement (mass/volume ) 23 mg/dL 7-18 Serum or plasma creatinine measurement (mass/volume) 0.59 mg/dL 0.60-1.30 Serum or plasma urea nitrogen/creatinine mass ratio 39 NRG Serum or plasma creatinine measurement w ith calculation of estimated glomerular filtration rate > NRG Serum or plasma glucose measurement (mass/volume) 99 mg/dL 70-105 Serum or plasma calcium measurement (mass/volume) 9.3 mg/dL 8.5-10.1 Serum or plasma total bilirubin measurement (mass/volu me) 0.3 mg/dL 0.1-1.0 Serum or plasma alkaline phosphatase moses surement (enzymatic activity/volume) 131 U/L 40-136 Serum or plasma aspartate aminotransfera se measurement (enzymatic activity/volume) 31 U/L 5-34 Serum or plasma alanine aminotransferase measurement (enzymatic activity/volume) 24 U/L 0-55 Serum or plasma protein measurement (mass/volume) 8.8 g/dL 6.4-8.2 Serum or plasma albumin measurement (mass/volume) 3.8 g/dL 3.2-4.5 CALCIUM CORRECTED 9.5 mg/dL 8.5-10.1 Serum or plasma creatine kinase measurem ent (enzymatic activity/volume) - 04/14/19 17:05 Serum or plasma creatine kinase measurem ent (enzymatic activity/volume) 106 U/L 29-168 Serum or plasma C reactive protein measu rement (mass/volume) - 04/14/19 17:05 Serum or plasma C reactive protein measurement (mass/v olume) 1.53 mg/dL 0.00-0.50 Encounters ACCT No. Visit Date/Time Discharge Status Pt. Type Provider Facility Loc./Unit Complaint [id number] 06/06/2019 12:47:00 020 00:01:00 DIS Outpatient JUAN NIETO [facility] ONC [id number] 04/14/2019 16:52:00 23:59:59 CLS Outpatient ORVILLE OLIVERA MD [facility] LAB SCLERODERMA [id number] 12/06/2018 10:29:00 00:01:00 DIS Outpatient JUAN NIETO [facility] ONC [id number] 01/16/2019 15:32:00 23:59:59 CLS Outpatient ORVILLE OLIVERA MD [facility] LAB LABS [id number] 10/23/2018 16:19:00 23:59:59 CLS Outpatient JOSELIN LOMBARDO, ORVILLE Campos [facility] LAB HIGH RISK MEDICATION [id number] 09/06/2018 09:42:00 00:01:00 DIS Outpatient JUAN NIETO [facility] ONC [id number] 09/26/2018 15:22:00 23:59:59 CLS Preadmit LUIS LAUGHLIN [employer] [facility] RT RESTRICTIVE JESSEE G DISEASE [id number] 07/27/2018 09:57:00 23:59:59 CLS Outpatient JUAN NIETO [facility] RAD [id number] 07/10/2018 15:33:00 018 23:59:59 CLS Preadmit LUIS LAUGHLIN [employer]USB[employer] WORK[employer] [facility] RAD DECREASED DIFFU GABINO CAPACITY OF LUNG [id number] 07/10/2018 15:26:00 018 23:59:59 CLS Outpatient LUIS LAUGHLIN [employer] [facility] RAD DECREASED DIFFU GABINO CAPACITY OF LUNG [id number] 06/21/2018 07:46:00 23:59:59 CLS Preadmit JOSELIN LOMBARDO, ORVILLE Campos [facility] RAD INTERSITIAL LUNG DISEAS E [id number] 04/23/2018 11:47:00 23:59:59 CLS Outpatient DOLORES LUCERO DO S [facility] CARD SYSTEMIC SCLERO DERMA [id number] 01/29/2018 13:56:00 23:59:59 CLS Outpatient ROE LOMBARDO, HELENE Torres [facility] LAB R94.5 [id number] 11/22/2017 11:55:00 018 23:59:59 CLS Preadmit LARY PRESLEY MD [facility] WOUNDCARE [id number] 11/15/2017 15:28:00 23:59:59 CLS Outpatient LARY PRESLEY MD [facility] LAB L97.312 [id number] 11/15/2017 13:57:00 23:59:59 CLS Outpatient LARY PRESLEY MD [facility] WOUNDCARE [id number] 10/23/2017 14:31:00 23:59:59 CLS Outpatient LARY PRESLEY MD [id number] 10/11/2017 14:54:00 23:59:59 CLS Outpatient LARY PRESLEY MD [facility] [id number] 10/02/2017 08:10:00 23:59:59 CLS Outpatient LARY PRESLEY MD [facility] [id number] 08/18/2017 00:21:00 23:59:59 CLS Preadmit CONNOR DUNHAM MD [facility] LAB M34.9 [id number] 05/19/2017 12:35:00 00:01:00 DIS Outpatient CONNOR DUNHAM MD [facility] LAB M34.9
[2019-10-30 10:03] LABS: HEMATOCRIT 39 % (35-52); HEMOGLOBIN 12.6 G/DL (11.5-16.0); MEAN CORPUSCULAR HEMOGLOBIN 28 PG (25-34); WHITE BLOOD COUNT 18.8 10^3/uL (4.3-11.0)
[2019-10-30 10:04] LABS: BASOPHILS % (AUTO) 0 % (0-10); EOSINOPHILS % (AUTO) 0 % (0-10); LYMPHOCYTES # (AUTO) 1.9 X 10^3 (1.0-4.0); LYMPHOCYTES % (AUTO) 10 % (12-44); MEAN CORPUSCULAR HGB CONC 33 G/DL (32-36); MEAN CORPUSCULAR VOLUME 87 FL (80-99); MEAN PLATELET VOLUME 10.9 FL (7.4-10.4); MONOCYTES # (AUTO) 0.9 X 10^3 (0.0-1.0); MONOCYTES % (AUTO) 5 % (0-12); NEUTROPHILS # (AUTO) 15.9 X 10^3 (1.8-7.8); NEUTROPHILS % (AUTO) 85 % (42-75); PLATELET COUNT 223 10^3/uL (130-400); RED CELL DISTRIBUTION WIDTH 17.3 % (10.0-14.5)
[2019-10-30 10:07] LABS: INR 1.1 (0.8-1.4); PROTHROMBIN TIME PATIENT 14.1 SEC (12.2-14.7)
[2019-10-30 10:20] LABS: BILIRUBIN,TOTAL 2.3 MG/DL (0.1-1.0); CALCIUM 9.6 MG/DL (8.5-10.1); CREATININE SERUM 2.95 MG/DL (0.60-1.30); POTASSIUM 3.3 MMOL/L (3.6-5.0); TOTAL PROTEIN 7.7 GM/DL (6.4-8.2)
--- NOTE | 2019-10-30 10:23 | ED General ---
General Chief Complaint: General Problems/Pain Stated Complaint: MULTIPLE COMPLAINTS Nursing Triage Note: TO ED PER [facility] CALLED EARLIER AND REPORTED SHE HAD A COUGH FOR 6 MONTHS, HAS SCLERDERMA, ULCERS ON ANKLES, HALUCINATIONS, PATIENT UNSURE WHY SHE IS HERE. REPORTS IS ABLE TO TURN SELF IN BED. UNSURE OF PMH OF MEDS. PLACED ON 02 ON ADMIT SAO2 UP TO 97% Nursing Sepsis Screen: No Definite Risk Source of Information: Patient, Family Exam Limitations: No Limitations History of Present Illness Date Seen by Provider: Oct 30, 2019 Time Seen by Provider: 09:25 Initial Comments Here with report of cough, body aches and overall not feeling well. Also has abdominal pain. Does have history of scleroderma. She has been taking Aleve for the pain. She does arrive with a fever. Denies nausea or vomiting. Last bowel movement was yesterday. States that she has decreased urination. Timing/Duration: 24 Hours, Getting Worse Severity: Moderate Associated Systoms: Fever/Chills Allergies and Home Medications Allergies Coded Allergies: Penicillins (Verified Allergy, Unknown, 10/30/19) Patient Home Medication List Home Medication List Reviewed: Yes Review of Systems Review of Systems Constitutional: see HPI, chills, fever EENTM: no symptoms reported Respiratory: cough; No short of breath Cardiovascular: No chest pain, No edema Gastrointestinal: abdominal pain; No nausea, No vomiting Genitourinary: decreased output; No dysuria : No Musculoskeletal: muscle pain, muscle stiffness Skin: change in color, lesions (Scleroderma. Multiple superficial wounds.) Psychiatric/Neurological: No Symptoms Reported Hematologic/Lymphatic: No Symptoms Reported All Other Systems Reviewed Negative Unless Noted: Yes Past Ioymegg-Hmfavz-Obslrr Hx Past Med/Social Hx: Reviewed Nursing Past Med/Soc Hx Patient Social History Alcohol Use: Denies Use Recreational Drug Use: No Smoking Status: Never a Smoker Recent Foreign Travel: No Contact w/Someone Who Travel: No Recent Infectious Disease Expo: No Past Medical History Surgeries: No Cardiac: Yes Hypertension Genitourinary: No Gastrointestinal: Yes Gastroesophageal Reflux Integumentary: Yes (SCLERODERMA) Family Medical History Reviewed Nursing Family Hx No Pertinent Family Hx Physical Exam-Suspected Sepsis Physical Exam Vital Signs Vital Signs - First Documented 10/30/19 09:20 Temp 37.3 Pulse 99 Resp 18 B/P (MAP) 99/55 (70) Pulse Ox 88 O2 Delivery Room Air O2 Flow Rate 2.00 Capillary Refill : Less Than 3 Seconds Blood Pressure Mean: 70 Height, Weight, BMI Height: '" Weight: lbs. oz. kg; 22.00 BMI Method: General Appearance: No Apparent Distress, WD/WN HEENT: PERRL/EOMI, Pharynx Normal Neck: Non Tender, Supple Respiratory: Lungs Clear, Normal Breath Sounds Cardiovascular: Regular Rate, Rhythm, No Murmur Gastrointestinal: Non Tender, Soft Back: Normal Inspection, No CVA Tenderness, No Vertebral Tenderness Extremity: Non Tender, Other (decreased range of motion due to scleroderma scarring and contractures to both upper and lower extremities) Neurologic/Psychiatric: Alert, Oriented x3 Skin: warm/dry, other (scleroderma skin changes noted to face and extremities) Focused Exam Lactate Level 10/30/19 09:40: Lactic Acid Level 2.07*H Lactic Acid Level Laboratory Tests Test 10/30/19 09:40 Lactic Acid Level 2.07 MMOL/L (0.50-2.00) *H Progress/Results/Core Measures Suspected Sepsis Recent Fever Within 48 Hours: No Infection Criteria Present: None New/Unexplained Altered Menta: No Sepsis Screen: No Definite Risk SIRS Temperature: Pulse: 99 Respiratory Rate: 18 Laboratory Tests 10/30/19 09:40: White Blood Count 18.8H Blood Pressure 99 /55 Mean: 70 10/30/19 09:40: Lactic Acid Level 2.07*H Laboratory Tests 10/30/19 09:40: Creatinine 2.95H, INR Comment 1.1, Platelet Count 223, Total Bilirubin 2.3H Results/Orders Lab Results Laboratory Tests Test 10/30/19 09:40 10/30/19 10:49 Range/Units White Blood Count 18.8 H 4.3-11.0 10^3/uL Red Blood Count 4.44 4.35-5.85 10^6/uL Hemoglobin 12.6 11.5-16.0 G/DL Hematocrit 39 35-52 % Mean Corpuscular Volume 87 80-99 FL Mean Corpuscular Hemoglobin 28 25-34 PG Mean Corpuscular Hemoglobin Concent 33 32-36 G/DL Red Cell Distribution Width 17.3 H 10.0-14.5 % Platelet Count 223 130-400 10^3/uL Mean Platelet Volume 10.9 H 7.4-10.4 FL Neutrophils (%) (Auto) 85 H 42-75 % Lymphocytes (%) (Auto) 10 L 12-44 % Monocytes (%) (Auto) 5 0-12 % Eosinophils (%) (Auto) 0 0-10 % Basophils (%) (Auto) 0 0-10 % Neutrophils # (Auto) 15.9 H 1.8-7.8 X 10^3 Lymphocytes # (Auto) 1.9 1.0-4.0 X 10^3 Monocytes # (Auto) 0.9 0.0-1.0 X 10^3 Eosinophils # (Auto) 0.0 0.0-0.3 10^3/uL Basophils # (Auto) 0.0 0.0-0.1 10^3/uL Neutrophils % (Manual) 69 % Lymphocytes % (Manual) 7 % Monocytes % (Manual) 5 % Eosinophils % (Manual) 0 % Basophils % (Manual) 0 % Band Neutrophils 18 % Reactive Lymphocytes 1 % Toxic Granulation 2+ Anisocytosis SLIGHT Adolph Cells SLIGHT Prothrombin Time 14.1 12.2-14.7 SEC INR Comment 1.1 0.8-1.4 Activated Partial Thromboplast Time 34 24-35 SEC Sodium Level 135 135-145 MMOL/L Potassium Level 3.3 L 3.6-5.0 MMOL/L Chloride Level 97 L 98-107 MMOL/L Carbon Dioxide Level 16 L 21-32 MMOL/L Anion Gap 22 H 5-14 MMOL/L Blood Urea Nitrogen 49 H 7-18 MG/DL Creatinine 2.95 H 0.60-1.30 MG/DL Estimat Glomerular Filtration Rate 16 BUN/Creatinine Ratio 17 Glucose Level 60 *L 70-105 MG/DL Lactic Acid Level 2.07 *H 0.50-2.00 MMOL/L Calcium Level 9.6 8.5-10.1 MG/DL Corrected Calcium 10.4 H 8.5-10.1 MG/DL Total Bilirubin 2.3 H 0.1-1.0 MG/DL Aspartate Amino Transf (AST/SGOT) 161 H 5-34 U/L Alanine Aminotransferase (ALT/SGPT) 74 H 0-55 U/L Alkaline Phosphatase 328 H 40-136 U/L Total Protein 7.7 6.4-8.2 GM/DL Albumin 3.0 L 3.2-4.5 GM/DL Urine Color YELLOW Urine Clarity CLOUDY Urine pH 5.0 5-9 Urine Specific [place] 1.025 H 1.016-1.022 Urine Protein 3+ H NEGATIVE Urine Glucose (UA) NEGATIVE NEGATIVE Urine Ketones 1+ H NEGATIVE Urine Nitrite NEGATIVE NEGATIVE Urine Bilirubin 2+ H NEGATIVE Urine Urobilinogen 1.0 < = 1.0 MG/DL Urine Leukocyte Esterase NEGATIVE NEGATIVE Urine RBC (Auto) NEGATIVE NEGATIVE Urine RBC NONE /HPF Urine WBC 5-10 H /HPF Urine Squamous Epithelial Cells 10-25 H /HPF Urine Crystals PRESENT H /LPF Urine Amorphous Sediment MOD SHARON URATES H /LPF Urine Bacteria FEW H /HPF Urine Casts PRESENT /LPF Urine Hyaline Casts 2-5 H /LPF Urine Granular Casts 2-5 H /LPF Urine Mucus MODERATE H /LPF Urine Culture Indicated CULTURE PENDING Micro Results Microbiology 10/30/19 Influenza Types A,B Antigen (MALISSA) - Final, Complete My Orders Orders - SHEELA JAUREGUI MD Cbc With Automated Diff (10/30/19 09:24) Comprehensive Metabolic Panel (10/30/19:24) Blood Culture (10/30/19 09:24) Sputum Culture (10/30/19:24) Urinalysis (10/30/19:24) Urine Culture (10/30/19:24) Protime With Inr (10/30/19:24) Partial Thromboplastin Time (10/30/19:24) Chest 1 View, Ap/Pa Only (10/30/19 09:24) Ed Iv/Invasive Line Start (10/30/19 09:24) Ed Iv/Invasive Line Start (10/30/19 09:24) Vital Signs Adult Sepsis Patie Q15M (10/30/19 09:24) O2 (10/30/19 09:24) Remove Rings In Anticipation O (10/30/19 09:24) Lactic Acid Analyzer (10/30/19:24) Influenza A And B Antigens (10/30/19 09:46) Lactated Ringers (Lr 1000 Ml Iv Solution (10/30/19 09:46) Fentanyl Injection (Sublimaze Injection (10/30/19 09:46) Catheter(Urinary) Insert & Ass 03,15 (10/30/19 09:46) Manual Differential (10/30/19 09:40) Oseltamivir 75 Mg Capsule (Tamiflu 75 (10/30/19 10:30) D5 Ns 1000 Ml Iv Solution (Dextrose 5%/0 (10/30/19 10:30) Oseltamivir 30 Mg Capsule (Tamiflu 30 Mg (10/30/19 11:00) Lactated Ringers (Lr 1000 Ml Iv Solution (10/30/19 11:00) Cefepime Injection (Maxipime Injection) (10/30/19 12:00) Medications Given in ED Current Medications Medications Dose Ordered Sig/Candace Route Start Time Stop Time Status Last Admin Dose Admin Lactated Ringer's 1,000 ml @ 0 mls/hr Q0M ONCE IV 10/30/19 11:00 10/30/19 11:01 DC 10/30/19 11:08 1,000 MLS/HR Oseltamivir Phosphate 30 mg ONCE ONCE PO 10/30/19 11:00 10/30/19 11:01 DC 10/30/19 11:08 30 MG Vital Signs/I&O 10/30/19 10/30/19 09:20 09:20 Temp 37.3 Pulse 99 Resp 18 B/P (MAP) 99/55 (70) Pulse Ox 88 88 O2 Delivery Room Air Nasal Cannula O2 Flow Rate 2.00 Capillary Refill : Less Than 3 Seconds Blood Pressure Mean: 70 Progress Note : Progress Note Seen and evaluated. IV, labs, UA, Londono catheter, chest x-ray, blood cultures, lactic acid and influenza screen ordered. LR 1 L bolus. Fentanyl 50 g IV for pain. Monitor patient. 1026: Patient is influenza B positive. Tamiflu 75 mg by mouth ordered. This was changed to Tamiflu 30 mg by mouth as she was found to be in acute renal failure and this is the renal dosing. D5NS at 125 an hour initiated due to lower glucose. Monitor patient. 1040: I did discuss the case with Dr. Gupta and she accepts patient for admission, inpatient status. Pending UA. 1055: Small amount of urine obtained now. This is dark and cloudy. We will give additional LR 1 L bolus and send UA. Findings concerns discussed with patient and family who agree with plan. 1150: Does have questionable urinary tract infection. She is also had blood pressures that have been below 90 systolic. There is a question on if its because of her arm being bent and the scleroderma and contractures. Blood pressure improves with appropriate positioning of the arm. That being said, she is normally hypertensive and this would be a low blood pressure. We will continue IV fluids. I will add cefepime 1 g IV now. I have updated Dr. Gupta and she agrees. Patient will go to the ICU. Admit, inpatient status. Patient agrees with plan. Patient is receiving fluids in range greater than 30 mL/kg IV. I attest to focused exam at this time. Diagnostic Imaging Diagonstic Imaging: Xray Plain Films/CT/US/NM/MRI: chest Comments [facility] [place], [place] NAME: [facility] REC#: [id number] PT STATUS: REG ER : 1960 PHYSICIAN: SHEELA JAUREGUI MD ADMIT DATE: 10/30/19/ER Draft Date of Exam:10/30/19 CHEST 1 VIEW, AP/PA ONLY Indication: Sepsis workup. Time of exam 9:32 AM No prior studies are available for comparison. The heart size is normal. The pulmonary vascularity is unremarkable. The lungs are clear. No infiltrate, effusion or pneumothorax is detected. Impression: No acute cardiopulmonary process is detected. Dictated on workstation # [id number] Dict: 10/30/19 0935 Trans: 10/30/19 0936 CVB [id number] Interpreted by: NINO GUILLERMO MD Electronically signed by: Departure Communication (Admissions) Time/Spoke to Admitting Phy: 10:40 Impression Primary Impression: Influenza B Additional Impressions: Acute renal failure Qualified Codes: N17.9 - Acute kidney failure, unspecified Dehydration UTI (urinary tract infection) Qualified Codes: N30.00 - Acute cystitis without hematuria Disposition: ADMITTED INPATIENT Condition: Stable Admissions Decision to Admit Reason: Admit from ER (General) Decision to Admit/Date: Oct 30, 2019 Time/Decision to Admit Time: 10:40 Departure-Patient Inst. Referrals: DOLORES GUPTA DO (PCP/Family) Primary Care Physician SHEELA JAUREGUI MD Oct 30, 2019 10:23
--- NOTE | 2019-10-30 10:25 | NUR ---
TO ROOM REPORT SHE IS A FULL CODE.
[2019-10-30] MEDS ORDERED: D5 NS 1000 ML IV SOLUTION 1,000 ML IV SCH (10:30)
[2019-10-30] MEDS: OSELTAMIVIR 75 MG (TAMIFLU) CAPSULE PO ONE ×2 (10:39→10:58)
--- NOTE | 2019-10-30 10:55 | NUR ---
TALKED WITH HE REPORTS THAT WHEN HE IS AT WORK SHE STAYS HOME ALONE.
[2019-10-30] MEDS ORDERED: OSELTAMIVIR 30 MG (TAMIFLU) CAPSULE PO ONE (11:00)
[2019-10-30] MEDS ORDERED: LACTATED RINGERS 1,000 ML IV ONE (11:00)
[2019-10-30 11:02] LABS: BAND NEUTROPHILS 18 %; BASOPHILS % (MANUAL) 0 %; EOSINOPHILS % (MANUAL) 0 %; LYMPHOCYTES % (MANUAL) 7 %; MONOCYTES % (MANUAL) 5 %; NEUTROPHILS % (MANUAL) 69 %; REACTIVE LYMPHOCYTES 1 %
--- NOTE | 2019-10-30 11:02 | NUR ---
APX 30 CC RETURNED FROM [facility] URINE DARK.
[2019-10-30 11:03] LABS: ANISOCYTOSIS SLIGHT; BURR CELLS SLIGHT; TOXIC GRANULATION/VACUOLAZATIO 2+
--- NOTE | 2019-10-30 11:08 | NUR ---
GAVE PATIENT A DRINK OF DUE TO MOUTH DRY SWOLLED WATER WITH DIFFICULT. WILL COME BACK AND AND GIVE PILL.
[2019-10-30 11:19] LABS: CLARITY,URINE CLOUDY; COLOR,URINE YELLOW; GLUCOSE, URINE (UA) NEGATIVE (NEGATIVE); KETONES,URINE 1+ (NEGATIVE); LEUKOCYTE ESTERASE ,URINE NEGATIVE (NEGATIVE); NITRITE,URINE NEGATIVE (NEGATIVE); PROTEIN,URINE 3+ (NEGATIVE)
--- NOTE | 2019-10-30 11:22 | NUR ---
TO ROOM PATIENT TOOK PILL WITHOUT PROBLEM
--- NOTE | 2019-10-30 11:26 | NUR ---
XERFORM USED NEXT TO BROKEN SKIN AREA WITH BERNA.
--- NOTE | 2019-10-30 11:28 | NUR ---
REPORTS PAIN GONE.
[2019-10-30 11:31] LABS: AMORPHOUS SEDIMENT,UR MOD AMOR URATES /LPF; BACTERIA,URINE FEW /HPF; BILIRUBIN,URINE 2+ (NEGATIVE)
--- NOTE | 2019-10-30 11:47 | NUR ---
IMPROVED FEELING BETTER.
[2019-10-30] MEDS ORDERED: CEFEPIME INJECTION 1,000 MG in WATER (STERILE) FOR INJECTION 10 ML IV ONE (12:00)
--- NOTE | 2019-10-30 12:57 | Pulmonary Consultation ---
History of Present Illness History of Present Illness Date Seen by Provider: Oct 30, 2019 Time Seen by Provider: 12:53 Date of Admission History of Present Illness 59yo wtih hx of scleroderma presented to ED via EMS secondary to worsening cough and SOB. Pt also complains of abdominal pain and generalized fatigue. Denies nausea or vomiting. Last bowel movement was yesterday. CXR appears no acute process. Allergies and Home Medications Allergies Coded Allergies: Penicillins (Verified Allergy, Unknown, 10/30/19) Past Grdfenl-Gkwenu-Meezuk Hx Past Med/Social Hx: Reviewed Nursing Past Med/Soc Hx Patient Social History Alcohol Use: Denies Use Recreational Drug Use: No Smoking Status: Never a Smoker Recent Foreign Travel: No Contact w/Someone Who Travel: No Recent Infectious Disease Expo: No Past Medical History Surgeries: No Cardiac: Yes Hypertension Genitourinary: No Gastrointestinal: Yes Gastroesophageal Reflux Integumentary: Yes (SCLERODERMA) Family Medical History Reviewed Nursing Family Hx No Pertinent Family Hx Sepsis Event Evaluation Height, Weight, BMI Height: '" Weight: lbs. oz. kg; 22.00 BMI Method: Exam Exam Vital Signs Date Time Temp Pulse Resp B/P (MAP) Pulse Ox O2 Delivery O2 Flow Rate FiO2 10/30/19 12:21 90 18 90/62 98 Nasal Cannula 2.00 10/30/19 09:20 88 Nasal Cannula 2.00 10/30/19 09:20 37.3 99 18 99/55 (70) 88 Room Air Height & Weight Height: '" Weight: lbs. oz. kg; 22.00 BMI Method: General Appearance: No Apparent Distress, WD/WN HEENT: PERRL/EOMI, Pharynx Normal Neck: Non Tender, Supple Respiratory: Lungs Clear, Normal Breath Sounds Cardiovascular: Regular Rate, Rhythm, No Murmur Capillary Refill: Less Than 3 Seconds Extremity: Non Tender, Other (decreased range of motion due to scleroderma scarring and contractures to both upper and lower extremities) Neurologic/Psychiatric: Alert, Oriented x3 Results Lab Laboratory Tests 10/30/19 09:40 Assessment/Plan Assessment/Plan Influenza B -Tamiflu Metabolic lactic acidosis -IVF Dehydration -IVF Hypokalemia -recheck labs LAUREEN VILLANUEVA DO Oct 30, 2019 12:57
[2019-10-30] MEDS ORDERED: LACTATED RINGERS 1,000 ML IV SCH ×2 (13:00→18:30)
[2019-10-30] MEDS ORDERED: ACETAMINOPHEN 325 MG TABLET PO PRN (13:15)
[2019-10-30] MEDS ORDERED: ACETAMINOPHEN 650 MG SUPP (TYLENOL) PR PRN (13:15)
[2019-10-30] MEDS ORDERED: EPINEPHrine 1 MG INJECTION 2 MG in NS (IVPB) 250 ML IV SCH (13:15)
[2019-10-30 13:29] LABS: BASOPHILS # (AUTO) 0.1 10^3/uL (0.0-0.1); BASOPHILS % (AUTO) 0 % (0-10); EOSINOPHILS % (AUTO) 0 % (0-10); HEMATOCRIT 38 % (35-52); LYMPHOCYTES # (AUTO) 1.6 X 10^3 (1.0-4.0); LYMPHOCYTES % (AUTO) 10 % (12-44); MEAN CORPUSCULAR HEMOGLOBIN 29 PG (25-34); MEAN CORPUSCULAR HGB CONC 31 G/DL (32-36); MEAN CORPUSCULAR VOLUME 92 FL (80-99); MEAN PLATELET VOLUME 10.7 FL (7.4-10.4); MONOCYTES # (AUTO) 0.8 X 10^3 (0.0-1.0); MONOCYTES % (AUTO) 5 % (0-12); NEUTROPHILS # (AUTO) 12.8 X 10^3 (1.8-7.8); NEUTROPHILS % (AUTO) 84 % (42-75); PLATELET COUNT 164 10^3/uL (130-400); RED CELL DISTRIBUTION WIDTH 17.7 % (10.0-14.5); WHITE BLOOD COUNT 15.3 10^3/uL (4.3-11.0)
--- NOTE | 2019-10-30 13:38 | NUR ---
THIS RN TO BEDSIDE TO ATTEMPT PICC PLACEMENT INITIAL XRAY POST PLACEMENT SHOWS PICC ADVANCING INTO IJ. ATTEMPT TO REPOSITION UNSUCCESSFUL, UNABLE TO ADVANCE. ATTEMPT TO REPLACE AT SAME INSERTION SITE UNSUCCESSFUL. ATTEMPT TO PLACE MIDLINE UNSUCCESSFUL.
[2019-10-30 13:50] LABS: ALBUMIN 2.4 GM/DL (3.2-4.5); BILIRUBIN,TOTAL 1.9 MG/DL (0.1-1.0); CALCIUM 9.4 MG/DL (8.5-10.1); CREATININE SERUM 2.54 MG/DL (0.60-1.30); MAGNESIUM 1.9 MG/DL (1.6-2.4); PHOSPHORUS 2.9 MG/DL (2.3-4.7); POTASSIUM 3.2 MMOL/L (3.6-5.0); TOTAL PROTEIN 6.6 GM/DL (6.4-8.2)
[2019-10-30 13:55] LABS: SMEAR SCAN COMMENT YES
[2019-10-30] MEDS: NOREPINEPHRINE 4 MG/250 ML 250 ML IV SCH ×2 (14:42→23:22)
[2019-10-30] MEDS: VASOPRESSIN INJECTION 20 UNIT in NORMAL SALINE 100 ML IV SCH ×2 (14:42→20:01)
--- NOTE | 2019-10-30 15:00 | Diagnostic Imaging Report ---
INDICATION: PICC line placement. TECHNIQUE: Frontal chest obtained at 2:43 p.m. and compared to same day at 9:32 a.m. FINDINGS: Heart and mediastinal silhouette are normal in appearance. Lungs are clear. There is no pneumothorax or pleural fluid. There is a PICC line in place from the left arm with catheter going up the left internal jugular vein, above the level of the film. IMPRESSION: PICC line in place from left arm with tip going up the left internal jugular vein, above the image level. Recommend repositioning and follow-up. Dictated by: Dictated on workstation # [id number]
--- OUTSIDE RECORDS SUMMARY | 2019-10-30 15:45 | XMS REPORT | Continuity of Care Document ---
Author Organization Unknown Address Unknown Phone Unavailable Allergies Active Description Code Type Severity Reaction Onset Reported/Identified Relationship to Patient Clinical Status Yes No Allergy Information Available [id number] Drug Allergy Unknown N/A 018 Medications There [...] 10/06/2017 LARY PRESLEY MD Ot I70.234 ATHSCL [place] ART OF RIGHT LEG W ULCER O 10/06/2017 LARY PRESLEY MD Ot I70.244 ATHSCL [place] ART OF LEFT LEG W ULCER OF 10/06/2017 LARY PRESLEY MD Ot L97.312 NON-PRS CHRONIC ULCER OF RIGHT ANKLE W F 10/06/2017 LARY PRESELY MD Ot L97.322 NON-PRESSURE CHRONIC ULCER OF LEFT ANKLE 10/06/2017 LARY PRESLEY MD Ot L97.412 NON-PRS CHR ULCER OF RIGHT HEEL AND MIDF 10/06/2017 LARY PRESLEY MD Ot L97.422 NON-PRS CHR ULCER OF LEFT HEEL AND MIDFO 10/06/2017 LARY PRESLEY MD, Ot M34 .9 SYSTEMIC SCLEROSIS, UNSPECIFIED 10/16/2017 LARY PRESLEY MD Ot I70.234 ATHSCL [place] ART OF RIGHT LEG W ULCER O 10/16/2017 LARY PRESLEY MD Ot I70.244 ATHSCL [place] ART OF LEFT LEG W ULCER OF [...] 10/18/2017 LARY PRESLEY MD Ot I70.234 ATHSCL [place] ART OF RIGHT LEG W ULCER O 10/18/2017 LARY PRESLEY MD Ot I70.244 ATHSCL [place] ART OF LEFT LEG W ULCER OF 10/18/2017 LARY PRESLEY MD Ot L97.312 NON-PRS CHRONIC ULCER OF RIGHT ANKLE W F 10/18/2017 LARY PRESLEY MD Ot L97.322 NON-PRESSURE CHRONIC ULCER OF LEFT ANKLE 10/18/2017 LARY PRESLEY MD Ot L97.412 NON-PRS CHR ULCER OF RIGHT HEEL AND MIDF 10/18/2017 LARY PRESLEY MD Ot L97.422 NON-PRS CHR ULCER OF LEFT HEEL AND MIDFO 10/18/2017 LARY PRESLEY MD, Ot M34 .9 SYSTEMIC SCLEROSIS, UNSPECIFIED 10/29/2017 LARY PRESLEY MD Ot I70.231 ATHSCL [place] ARTERIES OF RIGHT LEG W UL 10/29/2017 LARY PRESLEY MD Ot I70.244 ATHSCL [place] ART OF LEFT LEG W ULCER OF 10/29/2017 LARY PRESLEY MD Ot I87.333 CHRONIC VENOUS HTN W ULCER AND INFLAM OF 10/29/2017 LARY PRESLEY MD Ot L97.312 NON-PRS CHRONIC ULCER OF RIGHT ANKLE W F 10/29/2017 LARY PRESLEY MD Ot L97.322 NON-PRESSURE CHRONIC ULCER OF LEFT ANKLE 10/29/2017 LARY PRESLEY MD Ot M34 .9 SYSTEMIC SCLEROSIS, UNSPECIFIED 11/20/2017 LARY PRESLEY MD Ot I70.234 ATHSCL [place] ART OF RIGHT LEG W ULCER O 11/20/2017 LARY PRESLEY MD Ot I70.244 ATHSCL [place] ART OF LEFT LEG W ULCER OF [...] 11/28/2017 LARY PRESLEY MD Ot I70.234 ATHSCL [place] ART OF RIGHT LEG W ULCER O 11/28/2017 LARY PRESLEY MD Ot L97.312 NON-PRS CHRONIC ULCER OF RIGHT ANKLE W F 11/29/2017 LARY PRESLEY MD Ot I70.234 ATHSCL [place] ART OF RIGHT LEG W ULCER O 11/29/2017 LARY PRESLEY MD, Ot L97.312 NON-PRS CHRONIC ULCER OF RIGHT ANKLE W F 02/01/2018 ROE LOMBARDO, HELENE P Ot R94. 5 ABNORMAL RESULTS OF LIVER FUNCTION STUDI 02/15/2018 ROE LOMBARDO, HELENE P Ot R94. 5 ABNORMAL RESULTS OF LIVER FUNCTION STUDI 04/19/2018 LARY PRESLEY MD Ot I70.234 ATHSCL [place] ART OF RIGHT LEG W ULCER O 04/19/2018 LARY PRESLEY MD Ot I70.244 ATHSCL [place] ART OF LEFT LEG W ULCER OF [...] 04/19/2018 LARY PRESLEY MD Ot I70.234 ATHSCL [place] ART OF RIGHT LEG W ULCER O 04/19/2018 LARY PRESLEY MD Ot I70.244 ATHSCL [place] ART OF LEFT LEG W ULCER OF [...] 04/19/2018 LARY PRESLEY MD Ot I70.231 ATHSCL [place] ARTERIES OF RIGHT LEG W UL 04/19/2018 LARY PRESLEY MD Ot I70.244 ATHSCL [place] ART OF LEFT LEG W ULCER OF [...] 04/19/2018 LARY PRESLEY MD Ot I70.234 ATHSCL [place] ART OF RIGHT LEG W ULCER O 04/19/2018 LARY PRESLEY MD Ot I70.244 ATHSCL [place] ART OF LEFT LEG W ULCER OF [...] 06/21/2018 LARY PRESLEY MD Ot I70.234 ATHSCL [place] ART OF RIGHT LEG W ULCER O 06/21/2018 LARY PRESLEY MD Ot I70.244 ATHSCL [place] ART OF LEFT LEG W ULCER OF [...] 06/21/2018 LARY PRESLEY MD Ot I70.234 ATHSCL [place] ART OF RIGHT LEG W ULCER O 06/21/2018 LARY PRESLEY MD Ot I70.244 ATHSCL [place] ART OF LEFT LEG W ULCER OF [...] 06/21/2018 LARY PRESLEY MD Ot I70.231 ATHSCL [place] ARTERIES OF RIGHT LEG W UL 06/21/2018 LARY PRESLEY MD Ot I70.244 ATHSCL [place] ART OF LEFT LEG W ULCER OF [...] 06/21/2018 LARY PRESLEY MD Ot I70.234 ATHSCL [place] ART OF RIGHT LEG W ULCER O 06/21/2018 LARY PRESLEY MD Ot I70.244 ATHSCL [place] ART OF LEFT LEG W ULCER OF [...] 07/27/2018 LARY PRESLEY MD Ot I70.234 ATHSCL [place] ART OF RIGHT LEG W ULCER O 07/27/2018 LARY PRESLEY MD Ot I70.244 ATHSCL [place] ART OF LEFT LEG W ULCER OF [...] 07/27/2018 LARY PRESLEY MD Ot I70.234 ATHSCL [place] ART OF RIGHT LEG W ULCER O 07/27/2018 LARY PRESLEY MD Ot I70.244 ATHSCL [place] ART OF LEFT LEG W ULCER OF [...] 07/27/2018 LARY PRESLEY MD Ot I70.231 ATHSCL [place] ARTERIES OF RIGHT LEG W UL 07/27/2018 LARY PRESLEY MD, Ot I70.244 ATHSCL [place] ART OF LEFT LEG W ULCER OF [...] 07/27/2018 LARY PRESLEY MD Ot I70.234 ATHSCL [place] ART OF RIGHT LEG W ULCER O 07/27/2018 LARY PRESLEY MD Ot I70.244 ATHSCL [place] ART OF LEFT LEG W ULCER OF [...] UNSPECIFIED 07/27/2018 JUAN NIETO Ot Z79.899 OTHER MARKETING RESEARCH INTERN (CURRENT) DRUG THERAPY 07/27/2018 LUIS LAUGHLIN MANAGER REVENUE Ot J98.11 ATELECTASIS 07/27/2018 LUIS LAUGHLIN MANAGER REVENUE Ot 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 07/27/2018 TRUMANLUIS HAND MANAGER REVENUE Ot M34.9 SYSTEMIC SCLEROSIS, UNSPECIFIED 07/27/2018 LUIS LAUGHLIN MANAGER REVENUE Ot R94.2 ABNORMAL RESULTS OF PULMONARY FUNCTION [...] 07/30/2018 LARY PRESLEY MD Ot I70.234 ATHSCL [place] ART OF RIGHT LEG W ULCER O 07/30/2018 LARY PRESLEY MD Ot I70.244 ATHSCL [place] ART OF LEFT LEG W ULCER OF [...] 07/30/2018 LARY PRESLEY MD Ot I70.234 ATHSCL [place] ART OF RIGHT LEG W ULCER O 07/30/2018 LARY PRESLEY MD Ot I70.244 ATHSCL [place] ART OF LEFT LEG W ULCER OF [...] 07/30/2018 LARY PRESLEY MD Ot I70.231 ATHSCL [place] ARTERIES OF RIGHT LEG W UL 07/30/2018 LARY PRESLEY MD, Ot I70.244 ATHSCL [place] ART OF LEFT LEG W ULCER OF [...] 07/30/2018 LARY PRESLEY MD Ot I70.234 ATHSCL [place] ART OF RIGHT LEG W ULCER O 07/30/2018 LARY PRESLEY MD Ot I70.244 ATHSCL [place] ART OF LEFT LEG W ULCER OF [...] 07/30/2018 EMILIA, BOBAN N Ot Z79.899 OTHER INTERMEDIATE (CURRENT) DRUG THERAPY 07/30/2018 LUIS LAUGHLIN MANAGER REVENUE Ot J98.11 ATELECTASIS 07/30/2018 TRUMANLUIS HAND MANAGER REVENUE Ot 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 07/30/2018 TRUMANLUIS E MANAGER REVENUE Ot M34.9 SYSTEMIC SCLEROSIS, UNSPECIFIED 07/30/2018 TRUMANLUIS HAND E MANAGER REVENUE Ot R94.2 ABNORMAL RESULTS OF PULMONARY FUNCTION [...] 08/23/2018 EMILIA, BOBAN N Ot Z79.899 OTHER MARKETING RESEARCH INTERN (CURRENT) DRUG THERAPY 09/26/2018 EMILIA, BOBAN N Ot D47.2 MONOCLONAL GAMMOPATHY 09/26/2018 EMILIA, BOBAN N Ot D64.9 ANEMIA, UNSPECIFIED 09/26/2018 EMILIA, BOBAN N Ot I10 ESSENTIAL (PRIMARY) HYPERTENSION 09/26/2018 EMILIA BOBAN N Ot 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 09/26/2018 EMILIA, BOBAN N Ot M34.9 SYSTEMIC SCLEROSIS, UNSPECIFIED 09/26/2018 JUAN NIETO Ot Z79.899 OTHER MARKETING RESEARCH INTERN (CURRENT) DRUG THERAPY 10/08/2018 JUAN NIETO Ot D47.2 MONOCLONAL GAMMOPATHY 10/08/2018 JUAN NIETO N Ot D64.9 ANEMIA, UNSPECIFIED 10/08/2018 JUAN NIETO N Ot I10 ESSENTIAL (PRIMARY) HYPERTENSION 10/08/2018 JUAN NIETO Javi Ot 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 10/08/2018 JUAN NIETO N Ot M34.9 SYSTEMIC SCLEROSIS, UNSPECIFIED 10/08/2018 JUAN NIETO N Ot Z79.899 OTHER MARKETING RESEARCH INTERN (CURRENT) DRUG THERAPY 10/09/2018 JUAN NIETO Ot D47.2 MONOCLONAL GAMMOPATHY 10/09/2018 JUAN NIETO Javi Ot D64.9 ANEMIA, UNSPECIFIED 10/09/2018 JUAN NIETO N Ot I10 ESSENTIAL (PRIMARY) HYPERTENSION 10/09/2018 JUAN NIETO Javi Ot 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 10/09/2018 JUAN NIETO Javi Ot M34.9 SYSTEMIC SCLEROSIS, UNSPECIFIED 10/09/2018 JUAN NIETO Javi Ot Z79.899 OTHER MARKETING RESEARCH INTERN (CURRENT) DRUG THERAPY 11/07/2018 ORVILLE OLIVERA MD, Ot M34.9 SYSTEMIC SCLEROSIS, UNSPECIFIED 11/07/2018 ORVILLE OLIVERA MD Ot Z79.8 99 OTHER MARKETING RESEARCH INTERN (CURRENT) DRUG THERAPY 01/16/2019 LARY PRESLEY MD Ot I70.234 ATHSCL [place] ART OF RIGHT LEG W ULCER O 01/16/2019 LARY PRESLEY MD Ot I70.244 ATHSCL [place] ART OF LEFT LEG W ULCER OF [...] 01/16/2019 LARY PRESLEY MD Ot I70.234 ATHSCL [place] ART OF RIGHT LEG W ULCER O 01/16/2019 LARY PRESLEY MD Ot I70.244 ATHSCL [place] ART OF LEFT LEG W ULCER OF [...] 01/16/2019 LARY PRESLEY MD Ot I70.231 ATHSCL [place] ARTERIES OF RIGHT LEG W UL 01/16/2019 LARY PRESLEY MD Ot I70.244 ATHSCL [place] ART OF LEFT LEG W ULCER OF [...] 01/16/2019 LARY PRESLEY MD Ot I70.234 ATHSCL [place] ART OF RIGHT LEG W ULCER O 01/16/2019 LARY PRESLEY MD Ot I70.244 ATHSCL [place] ART OF LEFT LEG W ULCER OF [...] M34.9 SYSTEMIC SCLEROSIS, UNSPECIFIED 01/16/2019 LUIS LAUGHLIN MANAGER REVENUE Ot J98.11 ATELECTASIS 01/16/2019 LUIS LAUGHLIN MANAGER REVENUE Ot 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 01/16/2019 LUIS LAUGHLIN MANAGER REVENUE Ot M34.9 SYSTEMIC SCLEROSIS, UNSPECIFIED 01/16/2019 LUIS LAUGHLIN MANAGER REVENUE Ot R94.2 ABNORMAL RESULTS OF PULMONARY FUNCTION [...] UNSPECIFIED 01/16/2019 EMILIAJUAN N Ot Z79.899 OTHER MARKETING RESEARCH INTERN (CURRENT) DRUG THERAPY 01/16/2019 ORVILLE OLIVERA MD Ot M34.9 SYSTEMIC SCLEROSIS, UNSPECIFIED 01/16/2019 ORVILLE OLIVERA MD Ot Z79.8 99 OTHER INTERMEDIATE (CURRENT) DRUG THERAPY 01/22/2019 ORVILLE OLIVERA MD Ot Z51.8 1 ENCOUNTER FOR THERAPEUTIC DRUG LEVEL MON 01/22/2019 ORVILLE OLIVERA MD B Ot Z79.8 99 OTHER INTERMEDIATE (CURRENT) DRUG THERAPY 01/30/2019 ORVILLE OLIVERA MD Ot Z51.8 1 ENCOUNTER FOR THERAPEUTIC DRUG LEVEL MON 01/30/2019 ORVILLE OLIVERA MD B Ot Z79.8 99 OTHER MARKETING RESEARCH INTERN (CURRENT) DRUG THERAPY 02/17/2019 JUAN NIETO N Ot D47.2 MONOCLONAL GAMMOPATHY 02/17/2019 JUAN NIETO N Ot D64.9 ANEMIA, UNSPECIFIED 02/17/2019 EMILIA, BOBAN N Ot I10 ESSENTIAL (PRIMARY) HYPERTENSION 02/17/2019 JUAN NIETO N Ot 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 02/17/2019 JUAN NIETO N Ot M34.9 SYSTEMIC SCLEROSIS, UNSPECIFIED 02/17/2019 JUAN NIETO N Ot Z79.899 OTHER INTERMEDIATE (CURRENT) DRUG THERAPY 02/18/2019 JUAN NIETO N Ot D47.2 MONOCLONAL GAMMOPATHY 02/18/2019 JUAN NIETO N Ot D64.9 ANEMIA, UNSPECIFIED 02/18/2019 JUAN NIETO N Ot I10 ESSENTIAL (PRIMARY) HYPERTENSION 02/18/2019 JUAN NIETO N Ot 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 02/18/2019 JUAN NIETO N Ot M34.9 SYSTEMIC SCLEROSIS, UNSPECIFIED 02/18/2019 JUAN NIETO N Ot Z79.899 OTHER MARKETING RESEARCH INTERN (CURRENT) DRUG THERAPY 07/31/2019 JOSELIN LOMBARDO, ORVILLE Campos Ot M34.9 SYSTEMIC SCLEROSIS, UNSPECIFIED 07/31/2019 JOSELIN LOMBARDO, ORVILLE B Ot Z79.8 99 OTHER INTERMEDIATE (CURRENT) DRUG THERAPY 08/21/2019 JUAN NIETO N Ot D47.2 MONOCLONAL GAMMOPATHY 08/21/2019 JUAN NIETO N Ot D64.9 ANEMIA, UNSPECIFIED 08/21/2019 JUAN NIETO N Ot I10 ESSENTIAL (PRIMARY) HYPERTENSION 08/21/2019 JUAN NIETO N Ot 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 08/21/2019 JUAN NIETO N Ot M34.9 SYSTEMIC SCLEROSIS, UNSPECIFIED 08/21/2019 JUAN NIETO N Ot Z79.899 OTHER MARKETING RESEARCH INTERN (CURRENT) DRUG THERAPY 10/30/2019 ROLY LOMBARDO, HAYLIE Ot M34.9 SYSTEMIC SCLEROSIS, UNSPECIFIED 10/30/2019 Ot D47.2 MONO CLONAL GAMMOPATHY 10/30/2019 Ot D64.9 ANEM IA, UNSPECIFIED 10/30/2019 Ot I10 ESSENT IAL (PRIMARY) HYPERTENSION 10/30/2019 Ot J98.4 OTHE R DISORDERS OF LUNG 10/30/2019 Ot M34.9 SYST EMIC SCLEROSIS, UNSPECIFIED 10/30/2019 Ot Z79.899 OT HER MARKETING RESEARCH INTERN (CURRENT) DRUG THERAPY Procedures There is no [...] 0.0 10*3/uL 0.0-0.1 Comprehensive metabolic panel - 11/15/17 15:48 Serum or plasma sodium measurement (moles/volume) [...] protein measurement (mass/v olume) 1.53 mg/dL 0.00-0.50 Influenza virus A and B antigen detectio n - 10/30/19 09:35 CALL POSITIVES (F1 HELP) DR. JAUREGUI AT [address] [facility] FLU RESULT POSITIVE FOR INFLUENZA B ANT IGEN, NEG FOR A ANTIGEN, BY IA [facility] PT panel in platelet poor plasma by coag ulation assay - 10/30/19 09:40 Prothrombin time (PT) in platelet poor plasma by coagu lation assay 14.1 s 12.2-14.7 INR in platelet poor plasma or blood by coagulation as say 1.1 0.8-1.4 Activated partial thromboplastin time (a PTT) in platelet poor plasma bycoagulation assay - 10/30/19 09:40 Activated partial thromboplastin time (a PTT) in platelet poor plasma bycoagulation assay 34 s 24-35 Blood lactic acid measurement (moles/vol ume) - 10/30/19 09:40 Blood lactic acid measurement (moles/volume) 2.07 mmol/L 0.50-2.00 Comprehensive metabolic panel - 10/30/19 09:40 Serum or plasma sodium measurement (moles/volume) 135 mmol/L 135-145 Serum or plasma potassium measurement (moles/volume) 3.3 mmol/L 3.6-5.0 Serum or plasma chloride measurement (moles/volume) 97 mmol/L 98-107 Carbon dioxide 16 mmol/L 21-32 Serum or plasma anion gap determination (moles/volume) 22 mmol/L 5-14 Serum or plasma urea nitrogen measurement (mass/volume ) 49 mg/dL 7-18 Serum or plasma creatinine measurement (mass/volume) 2.95 mg/dL 0.60-1.30 Serum or plasma urea nitrogen/creatinine mass ratio 17 NRG Serum or plasma creatinine measurement w ith calculation of estimated glomerular filtration rate 16 NRG Serum or plasma glucose measurement (mass/volume) 60 mg/dL 70-105 Serum or plasma calcium measurement (mass/volume) 9.6 mg/dL 8.5-10.1 Serum or plasma total bilirubin measurement (mass/volu me) 2.3 mg/dL 0.1-1.0 Serum or plasma alkaline phosphatase moses surement (enzymatic activity/volume) 328 U/L 40-136 Serum or plasma aspartate aminotransfera se measurement (enzymatic activity/volume) 161 U/L 5-34 Serum or plasma alanine aminotransferase measurement (enzymatic activity/volume) 74 U/L 0-55 Serum or plasma protein measurement (mass/volume) 7.7 g/dL 6.4-8.2 Serum or plasma albumin measurement (mass/volume) 3.0 g/dL 3.2-4.5 CALCIUM CORRECTED 10.4 mg/dL 8.5-10.1 Complete blood count (CBC) with automate d white blood cell (WBC) differential - 10/30/19 09:40 Blood leukocytes automated count (number/volume) 18.8 10*3/uL 4.3-11.0 Blood erythrocytes automated count (number/volume) 4.44 10*6/uL 4.35-5.85 Venous blood hemoglobin measurement (mass/volume) 12.6 g/dL 11.5-16.0 Blood hematocrit (volume fraction) 39 % 35-52 Automated erythrocyte mean corpuscular volume 87 [ foz_us] 80-99 Automated erythrocyte mean corpuscular h emoglobin (mass per erythrocyte) 28 pg 25-34 Automated erythrocyte mean corpuscular h emoglobin concentration measurement (mass/volume) 33 g/dL 32-36 Automated erythrocyte distribution width ratio 17. 3 % 10.0- 14.5 Automated blood platelet count (count/volume) 223 10*3/uL 130-400 Automated blood platelet mean volume measurement 10.9 [foz_us] 7.4-10.4 Automated blood neutrophils/100 leukocytes 85 % 42-75 Automated blood lymphocytes/100 leukocytes 10 % 12-44 Blood monocytes/100 leukocytes 5 % 0-12 Automated blood eosinophils/100 leukocytes 0 % 0-10 Automated blood basophils/100 leukocytes 0 % 0-10 Blood neutrophils automated count (number/volume) 15.9 10*3 1.8-7.8 Blood lymphocytes automated count (number/volume) 1.9 10*3 1.0-4.0 Blood monocytes automated count (number/volume) 0. 9 10*3 0.0-1.0 Automated eosinophil count 0.0 10*3/uL 0 .0-0.3 Automated blood basophil count (count/volume) 0.0 10*3/uL 0.0-0.1 Manual absolute plasma cell count - 10/12 04/02 09:40 Blood monocytes/100 leukocytes 5 % NRG Manual blood segmented neutrophils/100 leukocytes 69 % NRG Blood band neutrophils/100 leukocytes 18 % NRG Manual blood lymphocytes/100 leukocytes 7 % NRG Manual eosinophils/100 leukocytes in nose 0 % NRG Manual blood basophils/100 leukocytes 0 % NRG Blood lymphocytes variant/100 leukocytes 1 % NRG Blood anisocytosis detection by light microscopy S LIGHT NRG Blood toxic granules detection by light microscopy 2+ NRG Blood kevin cells detection by light microscopy SLI GHT NRG Complete urinalysis with reflex to cultu re - 10/30/19 10:49 Urine color determination YELLOW NRG Urine clarity determination CLOUDY NR G Urine pH measurement by test strip 5.0 5-9 Specific gravity of urine by test strip 1.025 1.016-1.022 Urine protein assay by test strip, semi-quantitative 3+ NEGATIVE Urine glucose detection by automated test strip NE GATIVE NEGATIVE Erythrocytes detection in urine sediment by light micr oscopy NEGATIVE NEGATIVE Urine ketones detection by automated test strip 1+ NEGATIVE Urine nitrite detection by test strip NEGATIVE NEGATIVE Urine total bilirubin detection by test strip 2+ NEGATIVE Urine urobilinogen measurement by automated test strip (mass/volume) 1.0 mg/dL < = 1.0 Urine leukocyte esterase detection by dipstick NEG ATIVE NEGATIVE Automated urine sediment erythrocyte cou nt by microscopy (number/high power field) NONE NRG Automated urine sediment leukocyte count by microscopy (number/high power field) [HPF] NRG Bacteria detection in urine sediment by light microsco py FEW NRG Squamous epithelial cells detection in u rine sediment by light microscopy 10-25 NRG Crystals detection in urine sediment by light microsco py PRESENT NRG Casts detection in urine sediment by light microscopy PRESENT NRG Mucus detection in urine sediment by light microscopy MODERATE NRG Complete urinalysis with reflex to culture CULTURE PENDING NRG Amorphous sediment detection in urine sediment by ligh t microscopy MOD SHARON URATES NRG Hyaline casts detection in urine sediment by light mynor roscopy 2-5 NRG Granular casts detection in urine sediment by light mi croscopy 2-5 NRG Complete blood count (CBC) with automate d white blood cell (WBC) differential - 10/30/19 13:20 Blood leukocytes automated count (number/volume) 15.3 10*3/uL 4.3-11.0 Blood erythrocytes automated count (number/volume) 4.16 10*6/uL 4.35-5.85 Venous blood hemoglobin measurement (mass/volume) 12.0 g/dL 11.5-16.0 Blood hematocrit (volume fraction) 38 % 35-52 Automated erythrocyte mean corpuscular volume 92 [ foz_us] 80-99 Automated erythrocyte mean corpuscular h emoglobin (mass per erythrocyte) 29 pg 25-34 Automated erythrocyte mean corpuscular h emoglobin concentration measurement (mass/volume) 31 g/dL 32-36 Automated erythrocyte distribution width ratio 17. 7 % 10.0- 14.5 Automated blood platelet count (count/volume) 164 10*3/uL 130-400 Automated blood platelet mean volume measurement 10.7 [foz_us] 7.4-10.4 Automated blood neutrophils/100 leukocytes 84 % 42-75 Automated blood lymphocytes/100 leukocytes 10 % 12-44 Blood monocytes/100 leukocytes 5 % 0-12 Automated blood eosinophils/100 leukocytes 0 % 0-10 Automated blood basophils/100 leukocytes 0 % 0-10 Blood neutrophils automated count (number/volume) 12.8 10*3 1.8-7.8 Blood lymphocytes automated count (number/volume) 1.6 10*3 1.0-4.0 Blood monocytes automated count (number/volume) 0. 8 10*3 0.0-1.0 Automated eosinophil count 0.0 10*3/uL 0 .0-0.3 Automated blood basophil count (count/volume) 0.1 10*3/uL 0.0-0.1 Blood blood smear finding identification by light micr oscopy YES NRG Serum or plasma lactate measurement (mol es/volume) - 10/30/19 13:20 Serum or plasma lactate measurement (moles/volume) 1.41 mmol/L 0.50-2.00 Comprehensive metabolic panel - 10/30/19 13:20 Serum or plasma sodium measurement (moles/volume) 132 mmol/L 135-145 Serum or plasma potassium measurement (moles/volume) 3.2 mmol/L 3.6-5.0 Serum or plasma chloride measurement (moles/volume) 100 mmol/L 98-107 Carbon dioxide 15 mmol/L 21-32 Serum or plasma anion gap determination (moles/volume) 17 mmol/L 5-14 Serum or plasma urea nitrogen measurement (mass/volume ) 49 mg/dL 7-18 Serum or plasma creatinine measurement (mass/volume) 2.54 mg/dL 0.60-1.30 Serum or plasma urea nitrogen/creatinine mass ratio 19 NR Serum or plasma creatinine measurement w ith calculation of estimated glomerular filtration rate 19 NR Serum or plasma glucose measurement (mass/volume) 82 mg/dL 70-105 Serum or plasma calcium measurement (mass/volume) 9.4 mg/dL 8.5-10.1 Serum or plasma total bilirubin measurement (mass/volu me) 1.9 mg/dL 0.1-1.0 Serum or plasma alkaline phosphatase moses surement (enzymatic activity/volume) 268 U/L 40-136 Serum or plasma aspartate aminotransfera se measurement (enzymatic activity/volume) 132 U/L 5-34 Serum or plasma alanine aminotransferase measurement (enzymatic activity/volume) 62 U/L 0-55 Serum or plasma protein measurement (mass/volume) 6.6 g/dL 6.4-8.2 Serum or plasma albumin measurement (mass/volume) 2.4 g/dL 3.2-4.5 CALCIUM CORRECTED 10.7 mg/dL 8.5-10.1 Serum or plasma phosphate measurement (m ass/volume) - 10/30/19 13:20 Serum or plasma phosphate measurement (mass/volume) 2.9 mg/dL 2.3-4.7 Magnesium - 10/30/19 13:20 Magnesium 1.9 mg/dL 1.6-2.4 Encounters ACCT No. Visit Date/Time Discharge Status Pt. Type Provider Facility Loc./Unit Complaint [id number] 06/06/2019 12:47:00 00:01:00 DIS Outpatient JUAN NIETO [facility] ONC [id number] 04/14/2019 16:52:00 23:59:59 CLS Outpatient ORVILLE OLIVERA MD [facility] LAB SCLERODERMA [id number] 12/06/2018 10:29:00 00:01:00 DIS Outpatient JUAN NIETO [facility] ONC [id number] 01/16/2019 15:32:00 23:59:59 CLS Outpatient ORVILLE OLIVERA MD [facility] LAB LABS [id number] 10/23/2018 16:19:00 23:59:59 CLS Outpatient ORVILLE OLIVERA MD [facility] LAB HIGH RISK MEDICATION [id number] 09/06/2018 09:42:00 00:01:00 DIS Outpatient JUAN NIETO [facility] ONC [id number] 09/26/2018 15:22:00 019 23:59:59 CLS Preadmit LUIS LAUGHLIN MANAGER REVENUE [facility] RT RESTRICTIVE JESSEE G DISEASE [id number] 07/27/2018 09:57:00 018 23:59:59 CLS Outpatient EMILIAJUAN [facility] RAD [id number] 07/10/2018 15:33:00 018 23:59:59 CLS Preadmit LUIS LAUGHLIN MANAGER REVENUE [facility] RAD DECREASED DIFFU GABINO CAPACITY OF LUNG [id number] 07/10/2018 15:26:00 018 23:59:59 CLS Outpatient LUIS LAUGHLIN MANAGER REVENUE [facility] RAD DECREASED DIFFU GABINO CAPACITY OF LUNG [id number] 06/21/2018 07:46:00 018 23:59:59 CLS Preadmit JOSELIN LOMBARDO, ORVILLE B V [facility] RAD INTERSITIAL LUNG DISEAS E [id number] 04/23/2018 11:47:00 018 23:59:59 CLS Outpatient DOLORES LUCERO DO S [facility] CARD SYSTEMIC SCLERO DERMA [id number] 01/29/2018 13:56:00 018 23:59:59 CLS Outpatient HELENE AU MD [facility] LAB R94.5 [id number] 11/22/2017 11:55:00 018 23:59:59 CLS Preadmit LARY PRESLEY MD [facility] WOUNDCARE [id number] 11/15/2017 15:28:00 018 23:59:59 CLS Outpatient LARY PRESLEY MD [facility] LAB L97.312 [id number] 11/15/2017 13:57:00 018 23:59:59 CLS Outpatient LARY PRESLEY MD [facility] WOUNDCARE [id number] 10/23/2017 14:31:00 03/12/2 018 23:59:59 CLS Outpatient LARY PRESLEY MD [id number] 10/11/2017 14:54:00 23:59:59 CLS Outpatient LARY PRESLEY MD [facility] [id number] 10/02/2017 08:10:00 23:59:59 CLS Outpatient LARY PRESLEY MD [facility] [id number] 08/18/2017 00:21:00 23:59:59 CLS Preadmit CONNOR DUNHAM MD [facility] LAB M34.9 [id number] 05/19/2017 12:35:00 00:01:00 DIS Outpatient CONNOR DUNHAM MD [facility] LAB M34.9 [id number] 10/30/2019 10:55:[address] Inpatient DOLORES LUCERO DO [facility] ICU INFLUENZA B,ACUTE RENAL FAILURE,DEHYDRATION,UTI [id number] 08/22/2019 00:00:00 Document Registration
--- NOTE | 2019-10-30 17:01 | History & Physical ---
History of Present Illness History of Present Illness Reason for visit/HPI 1Simran is a 59 year old female with scleroderma who was brought to the emergency room with weakness and worsening shortness of breath. She states she had been sick for about a week. She was found to have Influenza B and to be severely dehydrated with a creatinine of 2.95 and was hypotensive. It was decided to admit her to the ICU for IVFs and possible pressors if needed. She was given ta miflu in the ER. Date of Admission Oct 30, 2019 at 10:55 Date Seen by a Provider: Oct 30, 2019 Time Seen by a Provider: 12:45 I consulted on this patient on 10/30/19 16:56 Attending Physician Britni Gupta DO Admitting Physician Britni Gupta DO Consult Allergies and Home Medications Allergies Coded Allergies: Penicillins (Verified Allergy, Unknown, 10/30/19) Home Medications Lisinopril 20 Mg Tablet, 20 MG PO DAILY, (Reported) Metoprolol Succinate 25 Mg Tab.er.24h, 25 MG PO DAILY, (Reported) Omeprazole Magnesium 20 Mg Tablet.dr, 20 MG PO DAILY, (Reported) Patient Home Medication List Home Medication List Reviewed: Yes Past Bryywan-Zdvoxe-Mapxpq Hx Past Med/Social Hx: Reviewed Nursing Past Med/Soc Hx Patient Social History Marrital Status: Alcohol Use: Denies Use Recreational Drug Use: No Smoking Status: Never a Smoker Recent Foreign Travel: No Contact w/other who traveled: No Recent Infectious Disease Expo: No Immunizations Up To Date Date of Pneumonia Vaccine: Oct 29, 2017 Date of Influenza Vaccine: May 14, 2019 Past Medical History Cardiac: Hypertension Gastrointestinal: Gastroesophageal Reflux Family History Reviewed Nursing Family Hx No Pertinent Family Hx Review of Systems Constitutional: fever, malaise, weakness EENTM: nose congestion Respiratory: short of breath Cardiovascular: No no symptoms reported, No see HPI, No chest pain, No edema, No Hx of Intervention, No palpitations, No syncope, No vascular heart diseas, No other Gastrointestinal: loss of appetite Genitourinary: decreased output Musculoskeletal: muscle pain, muscle stiffness, muscle weakness Skin: other (vasculitis sores) Psychiatric/Neurological: Headache, Weakness Physical Exam Vital Signs Vital Signs - First Documented 10/30/19 09:20 Temp 37.3 Pulse 99 Resp 18 B/P (MAP) 99/55 (70) Pulse Ox 88 O2 Delivery Room Air O2 Flow Rate 2.00 Capillary Refill : Less Than 3 Seconds Height, Weight, BMI Height: '" Weight: lbs. oz. kg; 22.00 BMI Method: General Appearance: Moderate Distress HEENT: Other (Mucous membranes dry) Neck: Supple Respiratory: Lungs Clear Cardiovascular: Gallop/S4, Tachycardia Gastrointestinal: Normal Bowel Sounds, Non Tender, Soft Rectal: Deferred Back: No CVA Tenderness Extremity: Non Tender, No Calf Tenderness, No Pedal Edema Neurologic/Psychiatric: Alert, Oriented x3 Skin: Warm/Dry, Other (sores to hands and bilateral ankles/feet) Assessment/Plan Assessment and Plan 1. Influenza B--treat with tamiflu 2. Severe Dehydration with Acute Renal Failure--aggressive IVF rehydration and monitor BUN/Cr 3. Hypotension--aggressive hydration and pressors if needed 4. Metabolic Acidosis with Electrolyte Imbalance--Hydrate and replace electrolytes as needed 5. Bacturia--culture urine and cover with maxipime until cultures final 6. Scleroderma with Vasculitis--patient has not been on any immunosuppressive therapy or steroids for at least 3-4mos Admission Diagnosis Admission Status: Inpatient Order (span 2 midnights) Reason for Inpatient Admission: Will need at least 48hrs of IVFs and close monitoring Clinical Quality Measures DVT/VTE Risk/Contraindication: Risk Factor Score Per Nursin RFS Level Per Nursing on Admit: 4+=Very High BRITNI GUPTA DO Oct 30, 2019 17:01
--- NOTE | 2019-10-30 18:01 | Diagnostic Imaging Report ---
INDICATION: Central line placement. FINDINGS: Portable chest shows normal heart size and vascularity. The lungs are clear. There is no effusion or pneumothorax. There has been placement of central catheter from the right jugular approach. Tip is in the SVC. IMPRESSION: Catheter tip is in the SVC just above the right atrium. Dictated by: Dictated on workstation # [id number]
[2019-10-30] MEDS: RT-ALBUTEROL/IPRATROPIUM 3 ML (DUONEB) VIAL INH SCH ×2 (18:56→22:30)
[2019-10-30] MEDS: POTASSIUM CL 10MEQ/50ML IVPB 50 ML IV SCH ×2 (19:12→20:26)
--- NOTE | 2019-10-30 20:41 | Consultation - Surgery ---
History of Present Illness History of Present Illness Patient Consulted On(tangela/time) 10/30/19 20:35 Date Seen by Provider: Oct 30, 2019 Time Seen by Provider: 17:03 History of Present Illness Consult requested for central line placement by Dr. Gupta. Patient is a 59 year old female who has been sick for about a week. Having weakness and increasing shortness of air. Not feeling well. She has sc leroderma. Patient dehydrated and a couple attempts of a PICC line were made and unable to get PICC line placed successfully. Patient positive for Flu B and blood pressure in 80's systolic. Allergies and Home Medications Allergies Coded Allergies: Penicillins (Verified Allergy, Unknown, 10/30/19) Home Medications Lisinopril 20 Mg Tablet, 20 MG PO DAILY, (Reported) Metoprolol Succinate 25 Mg Tab.er.24h, 25 MG PO DAILY, (Reported) Omeprazole Magnesium 20 Mg Tablet.dr, 20 MG PO DAILY, (Reported) Patient Home Medication List Home Medication List Reviewed: Yes Past Exlzplt-Rtlkke-Bcfvdh Hx Patient Social History Alcohol Use: Denies Use Recreational Drug Use: No Smoking Status: Never a Smoker Recent Foreign Travel: No Contact w/Someone Who Travel: No Recent Infectious Disease Expo: No Immunizations Up To Date Date of Pneumonia Vaccine: Oct 29, 2017 Date of Influenza Vaccine: May 14, 2019 Surgeries History of Surgeries: No Cardiovascular History of Cardiac Disorders: Yes Cardiac Disorders: Hypertension Genitourinary History of Genitourinary Disor: No Gastrointestinal History of Gastrointestinal Di: Yes Gastrointestinal Disorders: Gastroesophageal Reflux HEENT History of HEENT Disorders: No Cancer History of Cancer: No Integumentary History of Skin or Integumenta: Yes (SCLERODERMA) Reviewed Nursing Assessment Reviewed/Agree w Nursing PMH: Yes Family Medical History Significant Family History: No Pertinent Family Hx Review of Systems-General Constitutional: fever, malaise, weakness EENTM: No ear pain, No blurred vision Respiratory: short of breath Cardiovascular: no symptoms reported; No chest pain Gastrointestinal: no symptoms reported; No abdominal pain, No dysphagia, No heartburn Genitourinary: no symptoms reported Musculoskeletal: muscle pain Skin: other (scleroderma) Psychiatric/Neurological: Denies Depressed, Denies Emotional Problems Physical Exam-General Problems Physical Exam Vital Signs Vital Signs - First Documented 10/30/19 09:20 Temp 37.3 Pulse 99 Resp 18 B/P (MAP) 99/55 (70) Pulse Ox 88 O2 Delivery Room Air O2 Flow Rate 2.00 Capillary Refill : Less Than 3 Seconds General Appearance: no apparent distress HEENT: PERRL/EOMI, normal ENT inspection Neck: non-tender, supple Respiratory: chest non-tender, no respiratory distress, no accessory muscle use Cardiovascular: tachycardia Gastrointestinal: non tender, soft Rectal: deferred Back: no CVA tenderness Extremities: non-tender, normal inspection Neurologic/Psychiatric: fermenter wine II-XII nml as tested, alert, normal mood/affect, oriented x 3 Skin: other (skin changes to scleroderma) Lymphatic: no adenopathy Data Review Labs Laboratory Tests 10/30/19 09:40: White Blood Count 18.8H, Red Blood Count 4.44, Hemoglobin 12.6, Hematocrit 39, Mean Corpuscular Volume 87, Mean Corpuscular Hemoglobin 28, Mean Corpuscular Hemoglobin Concent 33, Red Cell Distribution Width 17.3H, Platelet Count 223, Mean Platelet Volume 10.9H, Neutrophils (%) (Auto) 85H, Lymphocytes (%) (Auto) 10L, Monocytes (%) (Auto) 5, Eosinophils (%) (Auto) 0, Basophils (%) (Auto) 0, Neutrophils # (Auto) 15.9H, Lymphocytes # (Auto) 1.9, Monocytes # (Auto) 0.9, Eosinophils # (Auto) 0.0, Basophils # (Auto) 0.0, Neutrophils % (Manual) 69, Lymphocytes % (Manual) 7, Monocytes % (Manual) 5, Eosinophils % (Manual) 0, Basophils % (Manual) 0, Band Neutrophils 18, Reactive Lymphocytes 1, Toxic Granulation 2+, Anisocytosis SLIGHT, Adolph Cells SLIGHT, Prothrombin Time 14.1, INR Comment 1.1, Activated Partial Thromboplast Time 34, Sodium Level 135, Pota ssium Level 3.3L, Chloride Level 97L, Carbon Dioxide Level 16L, Anion Gap 22H, Blood Urea Nitrogen 49H, Creatinine 2.95H, Estimat Glomerular Filtration Rate 16, BUN/Creatinine Ratio 17, Glucose Level 60*L, Lactic Acid Level 2.07*H, Calcium Level 9.6, Corrected Calcium 10.4H, Total Bilirubin 2.3H, Aspartate Amino Transf (AST/SGOT) 161H, Alanine Aminotransferase (ALT/SGPT) 74H, Alkaline Phosphatase 328H, Total Protein 7.7, Albumin 3.0L 10/30/19 10:40: 10/30/19 10:49: Urine Color YELLOW, Urine Clarity CLOUDY, Urine pH 5.0, Urine Specific [place] 1.025H, Urine Protein 3+H, Urine Glucose (UA) NEGATIVE, Urine Ketones 1+H, Urine Nitrite NEGATIVE, Urine Bilirubin 2+H, Urine Urobilinogen 1.0, Urine Leukocyte Esterase NEGATIVE, Urine RBC (Auto) NEGATIVE, Urine RBC NONE, Urine WBC 5-10H, Urine Squamous Epithelial Cells 10-25H, Urine Crystals PRESENTH, Urine Amorphous Sediment MOD SHARON URATESH, Urine Bacteria FEWH, Urine Casts PRESENT, Urine Hyaline Casts 2-5H, Urine Granular Casts 2-5H, Urine Mucus MODERATEH, Urine Culture Indicated CULTURE PENDING 10/30/19 13:20: White Blood Count 15.3H, Red Blood Count 4.16L, Hemoglobin 12.0, Hematocrit 38, Mean Corpuscular Volume 92, Mean Corpuscular Hemoglobin 29, Mean Corpuscular Hemoglobin Concent 31L, Red Cell Distribution Width 17.7H, Platelet Count 164, Mean Platelet Volume 10.7H, Neutrophils (%) (Auto) 84H, Lymphocytes (%) (Auto) 10L, Monocytes (%) (Auto) 5, Eosinophils (%) (Auto) 0, Basophils (%) (Auto) 0, Neutrophils # (Auto) 12.8H, Lymphocytes # (Auto) 1.6, Monocytes # (Auto) 0.8, Eosinophils # (Auto) 0.0, Basophils # (Auto) 0.1, Sodium Level 132L, Potassium Level 3.2L, Chloride Level 100, Carbon Dioxide Level 15L, Anion Gap 17H, Blood Urea Nitrogen 49H, Creatinine 2.54#H, Estimat Glomerular Filtration Rate 19, BUN/Creatinine Ratio 19, Glucose Level 82, Lactic Acid Level 1.41, Calcium Level 9.4, Corrected Calcium 10.7H, Total Bilirubin 1.9H, Aspartate Amino Transf ( AST/SGOT) 132H, Alanine Aminotransferase (ALT/SGPT) 62H, Alkaline Phosphatase 268H, Total Protein 6.6, Albumin 2.4L, Phosphorus Level 2.9, Magnesium Level 1.9, Smear Scan YES 10/30/19 18:27: Glucometer 102 Microbiology 10/30/19 Influenza Types A,B Antigen (MALISSA) - Final, Complete Assessment/Plan Assessment/Plan Assessment/Plan Influenza B Dehydration Acute renal failure Scleroderma Poor venous access Attempts at PICC line made previously by PICC team and no success. Patient discussed risks and benefits of having central line placed. understands risks and benefits and wishes to proceed will place right IJ u/s guided. Chest x ray post placement Clinical Quality Measures DVT/VTE Risk/Contraindication: Risk Factor Score Per Nursin RFS Level Per Nursing on Admit: 4+=Very High SILVESTRE PARKER DO Oct 30, 2019 20:41
--- NOTE | 2019-10-30 22:00 | NUR ---
NOTIFIED E-ICU OF PT LOW URINE OUTPUT AND QUESTION IN FLUID ORDERS. SEE ORDER HX
[2019-10-30] MEDS: CEFEPIME 1,000 MG/SWFI 10 ML IV PUSH IV SCH ×2 (23:39)
[2019-10-30] MEDS: LACTATED RINGERS 1,000 ML IV SCH (23:39)
[2019-10-31] VITALS (24 sets, daily range): BP systolic 80–135; BP diastolic 45–95
[2019-10-31] MEDS: RT-ALBUTEROL/IPRATROPIUM 3 ML (DUONEB) VIAL INH SCH ×6 (02:07→21:51)
[2019-10-31 03:36] LABS: BASOPHILS % (AUTO) 0 % (0-10); EOSINOPHILS # (AUTO) 0.1 10^3/uL (0.0-0.3); EOSINOPHILS % (AUTO) 0 % (0-10); HEMATOCRIT 30 % (35-52); LYMPHOCYTES % (AUTO) 12 % (12-44); MEAN CORPUSCULAR HEMOGLOBIN 29 PG (25-34); MEAN CORPUSCULAR HGB CONC 33 G/DL (32-36); MEAN CORPUSCULAR VOLUME 87 FL (80-99); MEAN PLATELET VOLUME 10.2 FL (7.4-10.4); MONOCYTES # (AUTO) 0.7 X 10^3 (0.0-1.0); MONOCYTES % (AUTO) 4 % (0-12); NEUTROPHILS # (AUTO) 13.7 X 10^3 (1.8-7.8); NEUTROPHILS % (AUTO) 83 % (42-75); PLATELET COUNT 156 10^3/uL (130-400); RED CELL DISTRIBUTION WIDTH 17.4 % (10.0-14.5); WHITE BLOOD COUNT 16.5 10^3/uL (4.3-11.0)
[2019-10-31 03:53] LABS: ALBUMIN 2.4 GM/DL (3.2-4.5); BILIRUBIN,TOTAL 1.7 MG/DL (0.1-1.0); CALCIUM 8.6 MG/DL (8.5-10.1); CREATININE SERUM 2.45 MG/DL (0.60-1.30); MAGNESIUM 1.8 MG/DL (1.6-2.4); PHOSPHORUS 2.5 MG/DL (2.3-4.7); POTASSIUM 2.8 MMOL/L (3.6-5.0); TOTAL PROTEIN 5.8 GM/DL (6.4-8.2)
--- NOTE | 2019-10-31 05:29 | Pulmonary Progress Note ---
Subjective Time Seen by a Provider: 05:29 Sepsis Event Evaluation Height, Weight, BMI Height: '" Weight: lbs. oz. kg; 25.17 BMI Method: Focused Exam Lactate Level 10/30/19 09:40: Lactic Acid Level 2.07*H 10/30/19 13:20: Lactic Acid Level 1.41 Exam Exam Vital Signs Date Time Temp Pulse Resp B/P (MAP) Pulse Ox O2 Delivery O2 Flow Rate FiO2 10/31/19 05:00 118 24 104/52 (69) 94 Room Air 10/31/19 04:03 36.5 10/31/19 04:00 Nasal Cannula 2.00 10/31/19 04:00 121 16 105/61 (76) 97 Room Air 10/31/19 03:00 121 18 98/53 (68) 94 Room Air 10/31/19 02:12 Room Air 10/31/19 02:09 95 Nasal Cannula 2.00 10/31/19 02:00 112 15 110/57 (74) 97 Nasal Cannula 2.00 10/31/19 01:00 111 17 94/52 (66) 97 Nasal Cannula 2.00 10/31/19 01:00 113 10/31/19 00:00 36.5 10/31/19 00:00 113 17 103/63 (76) 95 Nasal Cannula 2.00 10/30/19 23:59 Nasal Cannula 2.00 10/30/19 23:00 118 30 115/61 (79) 92 Nasal Cannula 2.00 10/30/19 22:23 94 Nasal Cannula 2.00 10/30/19 22:00 107 18 102/71 (81) 93 Nasal Cannula 2.00 10/30/19 21:00 105 16 101/68 (79) 97 Nasal Cannula 2.00 10/30/19 20:00 37.1 10/30/19 20:00 110 17 92/60 (71) 96 Nasal Cannula 2.00 10/30/19 20:00 Nasal Cannula 2.00 10/30/19 19:00 113 10/30/19 19:00 112 15 90/52 (65) 95 Nasal Cannula 2.00 10/30/19 18:56 95 Nasal Cannula 2.00 10/30/19 18:00 110 20 92/60 (71) 95 Nasal Cannula 2.00 10/30/19 17:00 110 19 90/53 (65) 97 Nasal Cannula 2.00 10/30/19 16:38 Nasal Cannula 2.00 10/30/19 16:00 36.6 10/30/19 16:00 108 19 84/52 (63) 97 Nasal Cannula 2.00 10/30/19 15:00 112 26 98/58 (71) 95 Nasal Cannula 2.00 10/30/19 14:00 115 13 97/57 (70) 96 Nasal Cannula 2.00 10/30/19 13:00 122 36 89/58 (68) 94 Nasal Cannula 2.00 10/30/19 12:56 123 10/30/19 12:21 90 18 90/62 98 Nasal Cannula 2.00 10/30/19 09:20 88 Nasal Cannula 2.00 10/30/19 09:20 37.3 99 18 99/55 (70) 88 Room Air I & O 10/31/19 07:00 Intake Total 3220 ml Output Total 195 ml Balance 3025 ml Height & Weight Height: '" Weight: lbs. oz. kg; 25.17 BMI Method: General Appearance: Moderate Distress HEENT: Other (Mucous membranes dry) Neck: Supple Respiratory: Lungs Clear Cardiovascular: Gallop/S4, Tachycardia Capillary Refill: Greater Than 3 Seconds Gastrointestinal: non tender, soft Extremity: Non Tender, No Calf Tenderness, No Pedal Edema Neurologic/Psychiatric: Alert, Oriented x3 Skin: Warm/Dry, Other (sores to hands and bilateral ankles/feet) Results Lab Laboratory Tests 10/30/19 09:40 10/30/19 13:20 10/31/19 03:28 Assessment/Plan Assessment/Plan Influenza B -Tamiflu Metabolic lactic acidosis -IVF [facility] Hypokalemia -replace LAUREEN VILLANUEVA DO Oct 31, 2019 05:29
[2019-10-31] MEDS ORDERED: morphine INJ 4 MG/ML 1 ML (VIAL/SYRINGE) ONE (05:43)
[2019-10-31] MEDS: morphine INJ 4 MG/ML 1 ML (VIAL/SYRINGE) IVP PRN ×2 (05:52→21:13)
[2019-10-31] MEDS: POTASSIUM CL 10MEQ/50ML IVPB 50 ML IV SCH ×5 (05:53→13:15)
[2019-10-31] MEDS: MAGNESIUM 1 GM/100 ML IVPB 100 ML IV SCH (06:06)
[2019-10-31] MEDS: VASOPRESSIN INJECTION 20 UNIT in NORMAL SALINE 100 ML IV SCH ×3 (06:06→22:54)
[2019-10-31] MEDS: KCL 20 MEQ TAB (K-DUR) PO SCH (06:06)
[2019-10-31] MEDS: LACTATED RINGERS 1,000 ML IV SCH ×4 (06:35→19:42)
--- NOTE | 2019-10-31 07:46 | Diagnostic Imaging Report ---
INDICATION: Dyspnea. COMPARISON: 10/30/2019 TECHNIQUE: Single radiograph of the chest dated 10/31/2019. FINDINGS: Right IJ central venous catheter is again identified, appearing stable. The cardiac silhouette is enlarged, similar to the prior examination. Mild central pulmonary vascular congestion. Elevation of the right hemidiaphragm. Low lung volumes with increasing perihilar opacities. No large-volume pleural effusion. No pneumothorax. No acute osseous abnormality. IMPRESSION: Low lung volumes, decreased from the prior examination. Prominence of the cardiac silhouette with associated prominence of the pulmonary vasculature and perihilar opacities. This may simply relate to accentuation secondary to low lung volumes, though mild developing volume overload/congestive heart failure would be additional consideration. Recommend clinical correlation and continued radiographic follow-up. Dictated by: Dictated on workstation # [id number]
[2019-10-31] MEDS: OSELTAMIVIR 30 MG (TAMIFLU) CAPSULE PO SCH (08:19)
--- NOTE | 2019-10-31 08:28 | Speech Therapy Progress Note ---
Therapy Progress Note ST attempted to complete Bedside Dysphagia Evaluation. Patient refused a sip of liquids. Nursing reports patient had just been given pain meds and may be able to participate at a later time. ST to follow up later this date. JOSE DE JESUS SMITH Oct 31, 2019 08:28
--- NOTE | 2019-10-31 11:51 | NUR ---
PT REFUSED MEDICATION AT THIS TIME. Addendum: 10/31/19 at 1151 by JAMEEL ZHONG RT Amended: Links added.
[2019-10-31] MEDS: NOREPINEPHRINE 4 MG/250 ML 250 ML IV SCH ×2 (12:52→19:42)
[2019-10-31] MEDS: CEFEPIME 1,000 MG/SWFI 10 ML IV PUSH IV SCH ×2 (13:00)
[2019-10-31] MEDS ORDERED: PANTOPRAZOLE 40 MG (PROTONIX) VIAL IV NR (13:00)
[2019-10-31] MEDS: HYDROCORTISONE 100 MG/2 ML (Solu-CORTEF) VIAL IV SCH ×2 (13:14→21:12)
[2019-10-31 13:17] LABS: AMYLASE 9 U/L (25-125); LIPASE 9 U/L (8-78)
--- NOTE | 2019-10-31 14:03 | NUR ---
PT HAS REFUSED BREATHING TREATMENT. PT HAS FAMILY AT BEDSIDE. PT IS SLEEPING COMFORTABLY. PT IS IN NO SIGNS OF RESPIRATORY DISTRESS. Addendum: 10/31/19 at 1404 by JAMEEL ZHONG RT Amended: Links added.
--- NOTE | 2019-10-31 18:00 | NUR ---
patients right shoulder is sore, she refuses to lay on right side. patients reports that her shoulder started hurting at home a few days ago at home after transferring to the commode.
--- NOTE | 2019-10-31 20:35 | NUR ---
THIS RN CONTACTED DR. LUCERO ABOUT PT SWALLOW STUDY AND DIET ORDER. THIS RN NOTIFIED DR. LUCERO THAT PT DID NOT RECEIVE SWALLOW STUDY DUE TO PT LOC. THIS RN REQUESTED AN ORDER FOR NPO. NEW ORDERS OBTAINED, SEE ORDER HX.
--- NOTE | 2019-10-31 20:44 | Progress Note ---
Subjective Date Seen by a Provider: Oct 31, 2019 Time Seen by a Provider: 20:38 Subjective/Events-last exam Fwup Influenza B, severe dehydration with acute renal failure, metabolic acidosis, scleroderma. Patient awakens but not speaking today. BP was low this morning but has been off pressors. Focused Exam Lactate Level 10/30/19 09:40: Lactic Acid Level 2.07*H 10/30/19 13:20: Lactic Acid Level 1.41 Objective Exam Vital Signs Date Time Temp Pulse Resp B/P (MAP) Pulse Ox O2 Delivery O2 Flow Rate FiO2 10/31/19 19:18 36.4 10/31/19 18:52 100 Room Air 10/31/19 18:00 85 10 122/69 (86) 98 Room Air 10/31/19 17:00 92 11 113/73 (86) 98 Room Air 10/31/19 16:00 87 12 124/67 (86) 97 Room Air 10/31/19 15:36 36.7 10/31/19 15:00 91 13 135/71 (92) 98 Room Air 10/31/19 14:27 100 Nasal Cannula 2.00 10/31/19 14:00 100 13 90/52 (65) 95 Room Air 10/31/19 13:00 101 13 105/61 (76) 96 Room Air 10/31/19 12:42 105 10/31/19 12:00 Room Air 10/31/19 12:00 105 15 120/95 (103) 95 Room Air 10/31/19 11:58 36.2 10/31/19 11:00 103 13 97/49 (65) 95 Room Air 10/31/19 10:00 105 14 89/48 (62) 96 Room Air 10/31/19 09:00 110 14 86/48 (61) 95 Room Air 10/31/19 08:00 Room Air 10/31/19 08:00 118 17 89/45 (60) 95 Room Air 10/31/19 07:03 100 Nasal Cannula 2.00 10/31/19 07:00 112 15 80/50 (60) 96 Room Air 10/31/19 06:37 113 10/31/19 06:00 113 16 96/51 (66) 94 Room Air 10/31/19 05:00 118 24 104/52 (69) 94 Room Air 10/31/19 04:03 36.5 10/31/19 04:00 Nasal Cannula 2.00 10/31/19 04:00 121 16 105/61 (76) 97 Room Air 10/31/19 03:00 121 18 98/53 (68) 94 Room Air 10/31/19 02:12 Room Air 10/31/19 02:09 95 Nasal Cannula 2.00 10/31/19 02:00 112 15 110/57 (74) 97 Nasal Cannula 2.00 10/31/19 01:00 111 17 94/52 (66) 97 Nasal Cannula 2.00 10/31/19 01:00 113 10/31/19 00:00 36.5 10/31/19 00:00 113 17 103/63 (76) 95 Nasal Cannula 2.00 10/30/19 23:59 Nasal Cannula 2.00 10/30/19 23:00 118 30 115/61 (79) 92 Nasal Cannula 2.00 10/30/19 22:23 94 Nasal Cannula 2.00 10/30/19 22:00 107 18 102/71 (81) 93 Nasal Cannula 2.00 10/30/19 21:00 105 16 101/68 (79) 97 Nasal Cannula 2.00 I & O 10/31/19 07:00 Intake Total 3220 ml Output Total 415 ml Balance 2805 ml Capillary Refill : Greater Than 3 Seconds General Appearance: Moderate Distress Neck: Supple Respiratory: Lungs Clear Cardiovascular: Regular Rate, Rhythm Gastrointestinal: normal bowel sounds, non tender, soft, distended Extremity: Non Tender, No Calf Tenderness, No Pedal Edema Neurologic/Psychiatric: Alert, Other (unable to get words out) Skin: Warm/Dry Results Lab Laboratory Tests 10/31/19 00:43: Glucometer 100 10/31/19 03:28: White Blood Count 16.5H, Red Blood Count 3.49L, Hemoglobin 10.0L, Hematocrit 30L , Mean Corpuscular Volume 87, Mean Corpuscular Hemoglobin 29, Mean Corpuscular Hemoglobin Concent 33, Red Cell Distribution Width 17.4H, Platelet Count 156, Mean Platelet Volume 10.2, Neutrophils (%) (Auto) 83H, Lymphocytes (%) (Auto) 12, Monocytes (%) (Auto) 4, Eosinophils (%) (Auto) 0, Basophils (%) (Auto) 0, Neutrophils # (Auto) 13.7H, Lymphocytes # (Auto) 2.0, Monocytes # (Auto) 0.7, Eosinophils # (Auto) 0.1, Basophils # (Auto) 0.0, Sodium Level 131L, Potassium Level 2.8L, Chloride Level 99, Carbon Dioxide Level 18L, Anion Gap 14, Blood Urea Nitrogen 51H, Creatinine 2.45H, Estimat Glomerular Filtration Rate 20, BUN/Creatinine Ratio 21, Glucose Level 92, Calcium Level 8.6, Corrected Calcium 9.9, Phosphorus Level 2.5, Magnesium Level 1.8, Total Bilirubin 1.7H, Aspartate Amino Transf (AST/SGOT) 127H, Alanine Aminotransferase (ALT/SGPT) 62H, Alkaline Phosphatase 256H, Total Protein 5.8L, Albumin 2.4L, Amylase Level 9L, Lipase 9 Microbiology 10/30/19 Gram Stain - Final, Resulted 10/30/19 Sputum Culture - Preliminary, Resulted Usual upper respiratory joana Moraxella catarrhalis Staphylococcus aureus 10/30/19 Urine Culture - Final, Complete NO GROWTH 10/30/19 Blood Culture - Preliminary, Resulted No growth Assessment/Plan Assessment/Plan Assess & Plan/Chief Complaint 1. Influenza B--on tamiflu 2. Severe Dehydration with Acute Renal Failure--on IVFs, monitor Cr 3. Sepsis with Staph Aureus--on Cefepime, will start hydrocortisone 4. Scleroderma--hydrocortisone, did discuss code status with and he states that her kids want her to be a full code--I explained to him that it is not want her kids want, it is what she wants and that the scleroderma could affect the lungs and she may not come off a ventilator if she had to go on one but he wished to keep her a full code 5. Hypotension--off levaphed and will see if improves with steroid dosing 6. Metabolic Acidosis--monitor with treatment of infections Clinical Quality Measures Admission Status Admission Dx 1. Influenza B--treat with tamiflu 2. Severe Dehydration with Acute Renal Failure--aggressive IVF rehydration and monitor BUN/Cr 3. Hypotension--aggressive hydration and pressors if needed 4. Metabolic Acidosis with Electrolyte Imbalance--Hydrate and replace electrolytes as needed 5. Bacturia--culture urine and cover with maxipime until cultures final 6. Scleroderma with Vasculitis--patient has not been on any immunosuppressive therapy or steroids for at least 3-4mos DVT/VTE Risk/Contraindication: Risk Factor Score Per Nursin RFS Level Per Nursing on Admit: 4+=Very High DOLORES LUCERO DO Oct 31, 2019 20:44
[2019-11-01] VITALS (20 sets, daily range): BP systolic 98–164; BP diastolic 55–95
[2019-11-01] MEDS: CEFEPIME 1,000 MG/SWFI 10 ML IV PUSH IV SCH ×4 (00:04→12:55)
--- NOTE | 2019-11-01 00:36 | OPERATIVE REPORT ---
DATE OF SERVICE: 10/30/2019 PREOPERATIVE DIAGNOSES: Poor venous access, scleroderma. POSTOPERATIVE DIAGNOSES: Poor venous access, scleroderma. PROCEDURE: Right internal jugular vein ultrasound-guided central line placement. SURGEON: Silvestre Vazquez DO ANESTHESIA: A 1% lidocaine 3 mL. ESTIMATED BLOOD LOSS: Minimal. COMPLICATIONS: None. INDICATIONS: The patient is a 59-year-old female with scleroderma, needing central line placed. She has had attempted PICC line that was unsuccessful. She is Influenza B positive and has dehydration and acute renal failure needing central line, possible pressor support. The patient understands risks and benefits of procedure and wished to proceed with procedure. Consent was signed in the chart. DESCRIPTION OF PROCEDURE: The patient was prepped and draped in sterile fashion. Timeout was performed. Ultrasound was used to isolate the right internal jugular vein. Local anesthetic was infiltrated and the right internal jugular vein was then accessed under ultrasound guidance. Dark nonpulsatile blood was withdrawn. The wire was inserted through the needle and the needle was removed. An #11 blade scalpel was used to make a skin incision at the insertion point. A dilator was advanced over the guidewire and removed, and the triple lumen catheter was inserted to the sheath over the guidewire and the wire was removed. The catheter was secured in the usual fashion and all ports were accessed and flushed without difficulty. The area was then washed, and dried and sterile bandage was applied. The patient tolerated procedure well without any complications. Chest x-ray pending. Job ID: [id number] DocumentID: [id number] Dictated Date: 10/31/2019 18:14:50 Microphone Boom Operator Date: 11/01/2019 00:35:10 Dictated By: SILVESTRE VAZQUEZ DO [facility]UN[facility] CAMPUSJosé
[2019-11-01] MEDS: LACTATED RINGERS 1,000 ML IV SCH ×3 (02:20→16:58)
[2019-11-01] MEDS: RT-ALBUTEROL/IPRATROPIUM 3 ML (DUONEB) VIAL INH SCH ×6 (02:25→22:53)
[2019-11-01 03:20] LABS: CALCIUM 8.4 MG/DL (8.5-10.1); CREATININE SERUM 1.63 MG/DL (0.60-1.30); MAGNESIUM 2.1 MG/DL (1.6-2.4); PHOSPHORUS 3.3 MG/DL (2.3-4.7); POTASSIUM 4.1 MMOL/L (3.6-5.0)
[2019-11-01] MEDS: MAGNESIUM 1 GM/100 ML IVPB 100 ML IV SCH (03:54)
[2019-11-01] MEDS: KCL 20 MEQ TAB (K-DUR) PO SCH (03:54)
[2019-11-01] MEDS: POTASSIUM CL 10MEQ/50ML IVPB 50 ML IV SCH (03:54)
[2019-11-01] MEDS: NOREPINEPHRINE 4 MG/250 ML 250 ML IV SCH ×2 (04:26→12:59)
[2019-11-01] MEDS: morphine INJ 4 MG/ML 1 ML (VIAL/SYRINGE) IVP PRN ×2 (05:57→21:59)
[2019-11-01] MEDS: HYDROCORTISONE 100 MG/2 ML (Solu-CORTEF) VIAL IV SCH ×3 (05:57→21:58)
--- NOTE | 2019-11-01 06:42 | NUR ---
THIS RN CALLED JOHAN ABOUT PT HAVING VOMITING. THIS RN INFORMED JOHAN SAN THAT PT HAS NO ANTIEMETICS ON EMAR.
--- NOTE | 2019-11-01 06:46 | Diagnostic Imaging Report ---
Portable erect AP chest at 216 hours. INDICATION: Dyspnea. FINDINGS: The heart size is stable when compared to the prior exam of 10/31/2019. The central pulmonary vascularity remains somewhat prominent. No new areas of pneumonia has developed since the prior exam and there is no significant pleural effusion. The mediastinum is not widened. The osseous structures are intact. The central venous catheter on the right is unchanged in position. IMPRESSION: Stable chest. There has been no adverse change since the prior exam. A follow-up study would be recommended for continued evaluation. Dictated by: Dictated on workstation # [id number]
[2019-11-01] MEDS: VASOPRESSIN INJECTION 20 UNIT in NORMAL SALINE 100 ML IV SCH ×3 (08:53→23:34)
[2019-11-01] MEDS: OSELTAMIVIR 30 MG (TAMIFLU) CAPSULE PO SCH ×2 (08:54→21:51)
[2019-11-01] MEDS ORDERED: PANTOPRAZOLE 40 MG (PROTONIX) VIAL IV SCH (09:00)
[2019-11-01] MEDS ORDERED: LORazepam INJ 2 MG/ML (ATIVAN) VIAL ONE (10:19)
[2019-11-01] MEDS ORDERED: ENOXAPARIN 40 MG/0.4 ML (LOVENOX) SYR SC SCH (11:30)
--- NOTE | 2019-11-01 12:02 | Diagnostic Imaging Report ---
PROCEDURE: CT head without contrast. TECHNIQUE: Multiple contiguous axial images were obtained through the brain without the use of intravenous contrast. Auto Exposure Controls were utilized during the CT exam to meet ALARA standards for radiation dose reduction. DATE: November 01, 2019. COMPARISON: None. INDICATION: 59-year-old female, aphasia. Altered mental status. FINDINGS: There is an area of CSF-like attenuation in the left basal ganglia compatible with remote prior lacunar infarct. There is no hydrocephalus. There is no mass effect or midline shift. There is no acute intracranial hemorrhage. There is no abnormal extra-axial fluid collection. The visualized portions of the paranasal sinuses, mastoid air cells and middle ears are well aerated. IMPRESSION: 1. No identified acute intracranial abnormality. 2. 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 Dictated by: Dictated on workstation # [id number]
--- NOTE | 2019-11-01 12:36 | Progress Note ---
Subjective Date Seen by a Provider: Nov 01, 2019 Time Seen by a Provider: 10:00 Subjective/Events-last exam Fwup Influenza B, severe dehydration with acute renal failure, Staph aureus sepsis, metabolic acidosis, scleroderma. Awake but still nonverbal and not following commands. Focused Exam Lactate Level 10/30/19 09:40: Lactic Acid Level 2.07*H 10/30/19 13:20: Lactic Acid Level 1.41 Objective Exam Vital Signs Date Time Temp Pulse Resp B/P (MAP) Pulse Ox O2 Delivery O2 Flow Rate FiO2 11/01/19 11:07 95 Room Air 11/01/19 09:00 109 12 133/73 (93) 97 Room Air 11/01/19 08:12 97 Room Air 11/01/19 08:00 89 9 138/71 (93) 97 Room Air 11/01/19 08:00 36.6 11/01/19 07:00 95 10 115/65 (82) 97 Room Air 11/01/19 06:46 95 11/01/19 06:00 91 14 119/72 (88) 98 Room Air 11/01/19 05:00 93 14 129/95 (106) 98 Room Air 11/01/19 04:00 95 11 123/66 (85) 98 Room Air 11/01/19 03:52 Room Air 11/01/19 03:13 36.7 11/01/19 03:00 95 12 127/63 (84) 97 Room Air 11/01/19 02:25 97 Room Air 11/01/19 02:00 92 11 130/80 (97) 98 Room Air 11/01/19 01:00 92 11/01/19 01:00 93 11 115/71 (86) 97 Room Air 11/01/19 00:07 35.4 11/01/19 00:05 Room Air 11/01/19 00:00 96 12 113/68 (83) 97 Room Air 10/31/19 23:00 97 12 116/65 (82) 97 Room Air 10/31/19 22:00 98 12 119/65 (83) 97 Room Air 10/31/19 21:51 97 Room Air 10/31/19 21:00 96 13 130/74 (92) 97 Room Air 10/31/19 20:00 Room Air 10/31/19 20:00 92 12 133/72 (92) 97 Room Air 10/31/19 19:18 36.4 10/31/19 19:00 92 10/31/19 19:00 92 12 126/72 (90) 98 Room Air 10/31/19 18:52 100 Room Air 10/31/19 18:00 85 10 122/69 (86) 98 Room Air 10/31/19 17:00 92 11 113/73 (86) 98 Room Air 10/31/19 16:00 87 12 124/67 (86) 97 Room Air 10/31/19 15:36 36.7 10/31/19 15:00 91 13 135/71 (92) 98 Room Air 10/31/19 14:27 100 Nasal Cannula 2.00 10/31/19 14:00 100 13 90/52 (65) 95 Room Air 10/31/19 13:00 101 13 105/61 (76) 96 Room Air 10/31/19 12:42 105 I & O 11/01/19 07:00 Intake Total 3220 ml Output Total 770 ml Balance 2450 ml Capillary Refill : Greater Than 3 Seconds General Appearance: No Apparent Distress Neck: Supple Respiratory: Lungs Clear Cardiovascular: Regular Rate, Rhythm Gastrointestinal: normal bowel sounds, non tender, soft Extremity: Non Tender, No Calf Tenderness, No Pedal Edema Neurologic/Psychiatric: Alert, Other (nonverbal/eyes fixed to right) Skin: Other (sores to both hands/ankles/feet) Results Lab Laboratory Tests 11/01/19 02:52: Sodium Level 133L, Potassium Level 4.1, Chloride Level 103, Carbon Dioxide Level 17L, Anion Gap 13, Blood Urea Nitrogen 51H, Creatinine 1.63H, Estimat Glomerular Filtration Rate 33, BUN/Creatinine Ratio 31, Glucose Level 107H, Calcium Level 8.4L, Phosphorus Level 3.3, Magnesium Level 2.1 Microbiology 10/30/19 Gram Stain - Final, Resulted 10/30/19 Sputum Culture - Preliminary, Resulted Usual upper respiratory joana Moraxella catarrhalis Staphylococcus aureus 10/30/19 Urine Culture - Final, Complete NO GROWTH 10/30/19 Blood Culture - Preliminary, Resulted No growth Assessment/Plan Assessment/Plan Assess & Plan/Chief Complaint 1. Influenza B--on tamiflu 2. Severe Dehydration with Acute Renal Failure--on IVFs, Cr improving 3. Sepsis with Staph Aureus--on Cefepime, will add Vanc to cover MRSA until final cultures back 4. Scleroderma--hydrocortisone, did discuss code status with and he states that her kids want her to be a full code--I explained to him that it is not want her kids want, it is what she wants and that the scleroderma could affect the lungs and she may not come off a ventilator if she had to go on one but he wished to keep her a full code, also states that due to her scleroderma, when her mouth gets dry that she is unable to speak 5. Hypotension--improved 6. Metabolic Acidosis with metabolic encephalopathy--check CT of head to rule out stroke, discussed with that prognosis is guarded but he still wants everything done Clinical Quality Measures Admission Status Admission Dx 1. Influenza B--treat with tamiflu 2. Severe Dehydration with Acute Renal Failure--aggressive IVF rehydration and monitor BUN/Cr 3. Hypotension--aggressive hydration and pressors if needed 4. Metabolic Acidosis with Electrolyte Imbalance--Hydrate and replace electrolytes as needed 5. Bacturia--culture urine and cover with maxipime until cultures final 6. Scleroderma with Vasculitis--patient has not been on any immunosuppressive therapy or steroids for at least 3-4mos DVT/VTE Risk/Contraindication: Risk Factor Score Per Nursin RFS Level Per Nursing on Admit: 4+=Very High DOLORES LUCERO DO Nov 01, 2019 12:36
[2019-11-01 12:56] LABS: ALBUMIN 2.3 GM/DL (3.2-4.5); BILIRUBIN,DIRECT 1.5 MG/DL (0.0-0.3); BILIRUBIN,INDIRECT 0.2 MG/DL; BILIRUBIN,TOTAL 1.7 MG/DL (0.1-1.0); TOTAL PROTEIN 5.9 GM/DL (6.4-8.2)
[2019-11-01] MEDS ORDERED: VANCOMYCIN INJECTION 1,500 MG in NS IV 500 ML 500 ML IV NR ×3 (13:00→17:30)
--- NOTE | 2019-11-01 13:02 | NUR ---
VANCOMYCIN DOSING SCR 1.63; IBW 63 KG; CRCL ~ 37; BOLUS VANC 20 MG/KG X 80 KG ~ 1500 MG THEN VANC 15 MG/KG ~ 1250 MG Q24H CHECK TROUGH LEVEL 11/02 1200 BEFORE 3RD DOSE HOLD DOSE AND CONTACT PHARMACY IF LEVEL IS GREATER THAN 20
--- NOTE | 2019-11-01 13:41 | NUR ---
CM/SS: Unable to visit with pt, due to her current status, no family present. This worker will follow up as per consult related to a home health care new need.
--- NOTE | 2019-11-01 13:45 | NUR ---
This nurse notified of patients decreased urine output.
--- NOTE | 2019-11-01 14:59 | Diagnostic Imaging Report ---
PROCEDURE: MR imaging of the brain without contrast. TECHNIQUE: Multiplanar, multisequence MR imaging of the brain was performed without contrast. INDICATION: Mental status changes. Right lateral gaze palsy. Positive for influenza. COMPARISON: CT head performed earlier the same date. FINDINGS: Small punctate foci of acute ischemia are visualized in the left dasilva radiata and right parietal lobe white matter. No associated mass effect or hemorrhage is seen. The ventricles, cortical sulci, and basilar cisterns are symmetric and unremarkable. The sellar and suprasellar regions have a normal appearance. The major intracranial flow voids are intact. The brainstem and posterior fossa are unremarkable. The paranasal sinuses and mastoid air cells demonstrate normal signal characteristics. The globes and orbits are symmetric and unremarkable. The scalp and calvarium have a normal appearance. IMPRESSION: 1. Small punctate foci of acute ischemia involving the left dasilva radiata and right parietal lobe. No mass effect or hemorrhage. Given the bilateral distribution and punctate size, there is concern for embolic source. Findings were called to the ICU at 02:50 p.m. on 11/01/[address] Michael Quinn. Dictated by: Dictated on workstation # [id number]
--- NOTE | 2019-11-01 15:10 | NUR ---
This nurse called and updated her that the results from the CT scan have been reported. I also updated her that I just got back with patient from MRI.
[2019-11-01] MEDS: ONDANSETRON 4 MG/2 ML (SDV) Z0FRAN IVP PRN (15:22)
--- NOTE | 2019-11-01 16:00 | NUR ---
Telephone order received from to place an order for an echo and bilateral carotid doppler. Order placed. This nurse notified house superviser.
--- NOTE | 2019-11-01 16:30 | Diagnostic Imaging Report ---
PROCEDURE: US carotid duplex, bilateral. TECHNIQUE: Multiple real-time grayscale images were obtained over the carotid arteries in various projections, bilaterally. Additional spectral analysis and color Doppler duplex images were also obtained. INDICATION: Altered mental status, CVA. FINDINGS: Study is limited because of jugular central line on the right. The velocities and waveforms appear normal. The ratios appear normal. The right vertebral cannot be seen because of the dressing. Left vertebral appear normal. IMPRESSION: There is no abnormality seen in either carotid bifurcation. Parameters based on the consensus panel Kirby-Scale and Doppler ultrasound criteria published June 2003, Radiology, Volume 229. DOPPLER (peak systolic velocity M/S Right Left CCA 1.29 1.37 ICA Proximal 0.60 0.61 ICA Mid 0.28 0.71 ICA Distal NOT SEEN NOT SEEN RATIO .47 .52 ECA 1.26 1.03 VERT NOT SEEN .50 Dictated by: Dictated on workstation # [id number]
--- NOTE | 2019-11-01 16:30 | Diagnostic Imaging Report ---
PROCEDURE: US Venous Lower Ext Neri. TECHNIQUE: Multiple real-time grayscale images were obtained over the lower extremities in various projections, bilaterally. Additional duplex Doppler and color Doppler images were also obtained. INDICATION: Acute stroke. COMPARISON: None FINDINGS: The bilateral common femoral vein, femoral vein, deep femoral vein, and popliteal vein are normal in appearance. These vessels show normal compressibility, color flow and doppler augmentation. The visualized deep calf veins demonstrate no distinct intraluminal thrombus. IMPRESSION: 1. No sonographic evidence of deep venous thrombosis in the bilateral lower extremities. Dictated by: Dictated on workstation # [id number]
[2019-11-01] MEDS ORDERED: NS IV 500 ML 500 ML ONE (16:50)
[2019-11-01] MEDS ORDERED: NS IV 1000 ML 500 ML IV SCH (17:00)
[2019-11-01] MEDS ORDERED: VANCOMYCIN INJECTION 0.1 MG in NS (IVPB) 250 ML IV SCH (17:00)
--- NOTE | 2019-11-01 17:24 | Consultation-Cardiology ---
HPI-Cardiology Cardiology Consultation Date of Consultation 11/01/19 Date of Admission Time Seen by Provider: 10:00 Indication: CVA HPI 59-year-old lady with history of scleroderma, admitted with sepsis and hypotension, tested positive for influenza B. Has been receiving Tamiflu and antibiotic for staph aureus bacteremia. Was on pressors initially, currently her blood pressure is better, it was reported that she was lethargic yesterday, able to move slightly but not responding appropriately to command, today he was more obtunded, opening her eyes but not following commands or making any purposeful movement. Had MRI of the head and reported multiple parked in the left dasilva radiata and right parietal lobe suggestive with the distribution of underlying embolization. I was called for evaluation for any cardiac source of embolization Home Medications & Allergies Allergies: Coded Allergies: Penicillins (Verified Allergy, Unknown, 10/30/19) Home Medication List Reviewed: Yes [id number] Hx Patient Social History Marital Status: Alcohol Use: Denies Use Recreational Drug Use: No Smoking Status: Never a Smoker Recent Foreign Travel: No Recent Infectious Disease Expo: No Immunizations Up To Date Date of Pneumonia Vaccine: Oct 29, 2017 Date of Influenza Vaccine: May 14, 2019 Past Medical History Discussed below Family Medical History Significant Family History: No Pertinent Family Hx Review of Systems-General Review of Systems Constitutional: see HPI, other (unable to provide review of system due to her current condition) EENTM: see HPI; No ear pain, No blurred vision Respiratory: see HPI, short of breath Cardiovascular: see HPI; No chest pain Gastrointestinal: no symptoms reported, see HPI; No abdominal pain, No dysphagia, No heartburn Genitourinary: no symptoms reported, see HPI : No Musculoskeletal: see HPI Skin: see HPI, other (scleroderma) Psychiatric/Neurological: See HPI; Denies Depressed, Denies Emotional Problems All Other Systems Reviewed Negative Unless Noted: Yes Reviewed Test Results Reviewed Test Results Lab Laboratory Tests Test 11/01/19 02:52 11/01/19 16:18 Range/Units Sodium Level 133 L 135-145 MMOL/L Potassium Level 4.1 3.6-5.0 MMOL/L Chloride Level 103 98-107 MMOL/L Carbon Dioxide Level 17 L 21-32 MMOL/L Anion Gap 13 5-14 MMOL/L Blood Urea Nitrogen 51 H 7-18 MG/DL Creatinine 1.63 H 0.60-1.30 MG/DL Estimat Glomerular Filtration Rate 33 BUN/Creatinine Ratio 31 Glucose Level 107 H 70-105 MG/DL Calcium Level 8.4 L 8.5-10.1 MG/DL Phosphorus Level 3.3 2.3-4.7 MG/DL Magnesium Level 2.1 1.6-2.4 MG/DL Total Bilirubin 1.7 H 0.1-1.0 MG/DL Direct Bilirubin 1.5 H 0.0-0.3 MG/DL Indirect Bilirubin 0.2 MG/DL Aspartate Amino Transf (AST/SGOT) 189 H 5-34 U/L Alanine Aminotransferase (ALT/SGPT) 94 H 0-55 U/L Alkaline Phosphatase 273 H 40-136 U/L Total Protein 5.9 L 6.4-8.2 GM/DL Albumin 2.3 L 3.2-4.5 GM/DL Ammonia 21 11-32 UMOL/L Physical Exam Physical Exam Vital Signs Vital Signs - First Documented 10/30/19 09:20 Temp 37.3 Pulse 99 Resp 18 B/P (MAP) 99/55 (70) Pulse Ox 88 O2 Delivery Room Air O2 Flow Rate 2.00 Capillary Refill : Greater Than 3 Seconds Height, Weight, BMI Height: '" Weight: lbs. oz. kg; 25.17 BMI Method: General Appearance: Other (obtunded, opening her eyes, no movement or following commands, not verbally responsive to any stimuli) HEENT: Other (Mucous membranes dry) Neck: Supple Respiratory: Lungs Clear Cardiovascular: Regular Rate, Rhythm, No Edema Gastrointestinal: Normal Bowel Sounds, Non Tender, Soft Rectal: Deferred Back: Normal Inspection Extremity: Non Tender, No Calf Tenderness, No Pedal Edema, Other (ulceration on the left foot) Neurologic/Psychiatric: Alert, Other (nonverbal/eyes fixed to right) Skin: Other (sores to both hands/ankles/feet) A/P-Cardiology Admission Diagnosis Acute mental status change Sepsis Influenza B Bacteremia Assessment/Plan Acute change in mental status, MRI of the head suggestive of embolization, echocardiogram was done showing normal left ventricular size and function, normal valvular function, no vegetation was noted. Patient has staph aureus bacteremia, added vancomycin to her current treatment, add Lovenox, monitor and planning for possible JACK Influenza B on Tamiflu, managed by Dr. Orender Septic shock, was on pressor, currently blood pressure is more stable Severe sepsis, has been on cefepime, added vancomycin today. Acute renal failure, has been receiving IV fluid with slow improvement of the renal function. Continue to monitor Scleroderma, has been maintained on hydrocortisone, immunocompromised. Metabolic encephalopathy. Workup done by primary care team Clinical Quality Measures DVT/VTE Risk/Contraindication: Risk Factor Score Per Nursin RFS Level Per Nursing on Admit: 4+=Very High LOLLY LOCKE MD Nov 01, 2019 17:24
--- NOTE | 2019-11-01 17:29 | Progress Note ---
Subjective Date Seen by a Provider: Nov 01, 2019 Time Seen by a Provider: 17:20 Subjective/Events-last exam Fwup Influenza B, severe dehydration with acute renal failure, Staph aureus sepsis, metabolic acidosis, scleroderma. MRI shows bilataral emboli with ischemia. Awake but still nonverbal and not following commands. Focused Exam Lactate Level 10/30/19 09:40: Lactic Acid Level 2.07*H 10/30/19 13:20: Lactic Acid Level 1.41 Objective Exam Vital Signs Date Time Temp Pulse Resp B/P (MAP) Pulse Ox O2 Delivery O2 Flow Rate FiO2 11/01/19 16:00 Room Air 11/01/19 16:00 36.8 11/01/19 16:00 74 19 144/58 (86) 95 Room Air 11/01/19 14:00 109 9 134/73 (93) 93 Room Air 11/01/19 13:00 107 12 159/78 (105) 95 Room Air 11/01/19 13:00 36.8 11/01/19 12:46 105 11/01/19 12:00 36.6 11/01/19 12:00 109 18 140/80 (100) Room Air 11/01/19 12:00 Room Air 11/01/19 11:07 95 Room Air 11/01/19 11:00 97 11 98/61 (73) 98 Room Air 11/01/19 10:00 100 11 124/63 (83) 97 Room Air 11/01/19 09:00 109 12 133/73 (93) 97 Room Air 11/01/19 08:12 97 Room Air 11/01/19 08:00 Room Air 11/01/19 08:00 89 9 138/71 (93) 97 Room Air 11/01/19 08:00 36.6 11/01/19 07:00 95 10 115/65 (82) 97 Room Air 11/01/19 06:46 95 11/01/19 06:00 91 14 119/72 (88) 98 Room Air 11/01/19 05:00 93 14 129/95 (106) 98 Room Air 11/01/19 04:00 95 11 123/66 (85) 98 Room Air 11/01/19 03:52 Room Air 11/01/19 03:13 36.7 11/01/19 03:00 95 12 127/63 (84) 97 Room Air 11/01/19 02:25 97 Room Air 11/01/19 02:00 92 11 130/80 (97) 98 Room Air 11/01/19 01:00 92 11/01/19 01:00 93 11 115/71 (86) 97 Room Air 11/01/19 00:07 35.4 11/01/19 00:05 Room Air 11/01/19 00:00 96 12 113/68 (83) 97 Room Air 10/31/19 23:00 97 12 116/65 (82) 97 Room Air 10/31/19 22:00 98 12 119/65 (83) 97 Room Air 10/31/19 21:51 97 Room Air 10/31/19 21:00 96 13 130/74 (92) 97 Room Air 10/31/19 20:00 Room Air 10/31/19 20:00 92 12 133/72 (92) 97 Room Air 10/31/19 19:18 36.4 10/31/19 19:00 92 10/31/19 19:00 92 12 126/72 (90) 98 Room Air 10/31/19 18:52 100 Room Air 10/31/19 18:00 85 10 122/69 (86) 98 Room Air I & O 11/01/19 07:00 Intake Total 3220 ml Output Total 770 ml Balance 2450 ml Capillary Refill : Greater Than 3 Seconds General Appearance: No Apparent Distress Respiratory: Lungs Clear Cardiovascular: Tachycardia Gastrointestinal: normal bowel sounds, non tender, soft Extremity: Non Tender, No Calf Tenderness, No Pedal Edema Neurologic/Psychiatric: Alert, Oriented x3 Skin: Other (ulcers/sores to bilateral hands/ankles/feet) Results Lab Laboratory Tests 11/01/19 02:52: Sodium Level 133L, Potassium Level 4.1, Chloride Level 103, Carbon Dioxide Level 17L, Anion Gap 13, Blood Urea Nitrogen 51H, Creatinine 1.63H, Estimat Glomerular Filtration Rate 33, BUN/Creatinine Ratio 31, Glucose Level 107H, Calcium Level 8.4L, Phosphorus Level 3.3, Magnesium Level 2.1, Total Bilirubin 1.7H, Direct Bilirubin 1.5H, Indirect Bilirubin 0.2, Aspartate Amino Transf (AST/SGOT) 189H, Alanine Aminotransferase (ALT/SGPT) 94H, Alkaline Phosphatase 273H, Total Protein 5.9L, Albumin 2.3L 11/01/19 16:18: Ammonia 21 Microbiology 10/30/19 Gram Stain - Final, Resulted 10/30/19 Sputum Culture - Preliminary, Resulted Usual upper respiratory joana Moraxella catarrhalis Staphylococcus aureus 10/30/19 Urine Culture - Final, Complete NO GROWTH 10/30/19 Blood Culture - Preliminary, Resulted No growth Assessment/Plan Assessment/Plan Assess & Plan/Chief Complaint 1. Influenza B--on tamiflu 2. Severe Dehydration with Acute Renal Failure--on IVFs, Cr improving 3. Sepsis with Staph Aureus--on Cefepime 4. Scleroderma--hydrocortisone, did discuss code status with and he states that her kids want her to be a full code--I explained to him that it is not want her kids want, it is what she wants and that the scleroderma could affect the lungs and she may not come off a ventilator if she had to go on one but he wished to keep her a full code, also states that due to her scleroderma, when her mouth gets dry that she is unable to speak 5. Hypotension--improved 6. Metabolic Acidosis with metabolic encephalopathy--check CT of head to rule out stroke, discussed with that prognosis is guarded but he still wants everything done 7. Bilateral Cerebral Emboli with Ischemia--suspect bacterial endocarditis so cardiology consulted and will add Vanc at this time, unable to do bilateral carotid dopplers due to IJ and can't do CT angiogram at this time due to BUN/Cr Long discussion with in person (keeping COVID-19 guidelines) and with both daughters via phone. Discussed grave prognosis. Will continue with aggressive treatment and monitor response through weekend. and daughters now agree to DNR. Clinical Quality Measures Admission Status Admission Dx 1. Influenza B--treat with tamiflu 2. Severe Dehydration with Acute Renal Failure--aggressive IVF rehydration and monitor BUN/Cr 3. Hypotension--aggressive hydration and pressors if needed 4. Metabolic Acidosis with Electrolyte Imbalance--Hydrate and replace electrolytes as needed 5. Bacturia--culture urine and cover with maxipime until cultures final 6. Scleroderma with Vasculitis--patient has not been on any immunosuppressive therapy or steroids for at least 3-4mos DVT/VTE Risk/Contraindication: Risk Factor Score Per Nursin RFS Level Per Nursing on Admit: 4+=Very High ORENDER,DOLORES S DO Nov 01, 2019 17:29
--- NOTE | 2019-11-01 18:00 | NUR ---
Verbal order received from to give patient 1L NS IV bolus now and to start patient on vancomycin pharmacy to dose.
[2019-11-01] MEDS: PANTOPRAZOLE 40 MG (PROTONIX) VIAL IV SCH (21:58)
[2019-11-02] VITALS (23 sets, daily range): BP systolic 125–189; BP diastolic 57–95
[2019-11-02] MEDS: LACTATED RINGERS 1,000 ML IV SCH ×4 (00:10→23:33)
[2019-11-02] MEDS: NOREPINEPHRINE 4 MG/250 ML 250 ML IV SCH ×3 (00:26→19:38)
[2019-11-02] MEDS: CEFEPIME 1,000 MG/SWFI 10 ML IV PUSH IV SCH ×6 (00:35→23:41)
--- NOTE | 2019-11-02 01:11 | NUR ---
THIS RN CALLED JOHAN TO INFORM THE PHYSICIAN OF PT'S HEART RATE ABOVE 110BPM. NO NEW ORDERS OBTAINED AT THIS TIME.
[2019-11-02] MEDS: RT-ALBUTEROL/IPRATROPIUM 3 ML (DUONEB) VIAL INH SCH ×6 (02:07→21:26)
[2019-11-02 03:11] LABS: BASOPHILS % (AUTO) 0 % (0-10); EOSINOPHILS % (AUTO) 0 % (0-10); HEMATOCRIT 30 % (35-52); HEMOGLOBIN 9.6 G/DL (11.5-16.0); LYMPHOCYTES # (AUTO) 1.2 X 10^3 (1.0-4.0); LYMPHOCYTES % (AUTO) 12 % (12-44); MEAN CORPUSCULAR HEMOGLOBIN 28 PG (25-34); MEAN CORPUSCULAR HGB CONC 32 G/DL (32-36); MEAN CORPUSCULAR VOLUME 87 FL (80-99); MEAN PLATELET VOLUME 10.5 FL (7.4-10.4); MONOCYTES # (AUTO) 0.4 X 10^3 (0.0-1.0); MONOCYTES % (AUTO) 4 % (0-12); NEUTROPHILS # (AUTO) 7.8 X 10^3 (1.8-7.8); NEUTROPHILS % (AUTO) 83 % (42-75); PLATELET COUNT 139 10^3/uL (130-400); WHITE BLOOD COUNT 9.4 10^3/uL (4.3-11.0)
[2019-11-02 03:43] LABS: ALBUMIN 2.3 GM/DL (3.2-4.5); BILIRUBIN,TOTAL 1.1 MG/DL (0.1-1.0); CALCIUM 8.1 MG/DL (8.5-10.1); CREATININE SERUM 1.23 MG/DL (0.60-1.30); MAGNESIUM 2.1 MG/DL (1.6-2.4); PHOSPHORUS 3.7 MG/DL (2.3-4.7); TOTAL PROTEIN 5.9 GM/DL (6.4-8.2)
[2019-11-02] MEDS: POTASSIUM CL 10MEQ/50ML IVPB 50 ML IV SCH (03:45)
[2019-11-02] MEDS: MAGNESIUM 1 GM/100 ML IVPB 100 ML IV SCH (03:45)
[2019-11-02] MEDS: KCL 20 MEQ TAB (K-DUR) PO SCH (03:46)
[2019-11-02] MEDS: morphine INJ 4 MG/ML 1 ML (VIAL/SYRINGE) IVP PRN ×3 (04:25→21:44)
[2019-11-02] MEDS: HYDROCORTISONE 100 MG/2 ML (Solu-CORTEF) VIAL IV SCH ×3 (05:42→21:52)
[2019-11-02] MEDS: VASOPRESSIN INJECTION 20 UNIT in NORMAL SALINE 100 ML IV SCH ×2 (07:08→15:09)
[2019-11-02] MEDS: OSELTAMIVIR 30 MG (TAMIFLU) CAPSULE PO SCH ×2 (07:09→20:02)
--- NOTE | 2019-11-02 07:54 | Diagnostic Imaging Report ---
HISTORY: Dyspnea TECHNIQUE: Single frontal view of the chest COMPARISON: 11/01/2019 FINDINGS: Lung volumes are mildly low. Interstitial opacities are mildly prominent. There is bibasilar atelectasis. Aeration appears stable. The right jugular line projects over the SVC. The cardiac silhouette is stable in size. IMPRESSION: 1. Mildly low lung volumes with mildly prominent interstitial opacities, unchanged since the prior study. Dictated by: Dictated on workstation # [id number]
[2019-11-02] MEDS: PANTOPRAZOLE 40 MG (PROTONIX) VIAL IV SCH ×2 (08:02→20:13)
--- NOTE | 2019-11-02 09:30 | Diagnostic Imaging Report ---
PROCEDURE: CT abdomen and pelvis without contrast. TECHNIQUE: Multiple contiguous axial images were obtained through the abdomen and pelvis without the use of intravenous contrast. Auto Exposure Controls were utilized during the CT exam to meet ALARA standards for radiation dose reduction. INDICATION: Abdominal pain, vomiting and elevated liver function studies. I have no priors. FINDINGS: There are multiple stones within the lumen of the gallbladder, no definite pericholecystic edema, no bile duct dilatation. Spleen is mildly enlarged but appeared nonfocal at this uninfused exam. There is no hydroureteronephrosis and no radiodense urinary tract calculi. This patient has a small amount of pelvic free fluid. There are substantial degrees of integumentary and subcutaneous edema about the lower abdomen and pelvis. No loculated fluid collection. No pathological air. Air within the catheterized urinary bladder lumen is believed to be owing to that instrumentation. The uterus and adnexa appeared unremarkable. The appendix normal. There is no evidence for diverticulitis, some dependent bibasilar subsegmental atelectasis. No appreciable basilar pleural fluid. Adrenals and pancreas unremarkable. The aorta is nonaneurysmal. IMPRESSION: 1. 3rd space fluid is with integumentary edema and small volume pelvic free fluid. No loculated collection. 2. Extensive cholelithiasis without bile duct dilatation. 3. Mild splenomegaly. 4. Nonfocal unobstructed urinary tracts with catheterized urinary bladder. Dictated by: Dictated on workstation # [id number]
--- NOTE | 2019-11-02 10:18 | Progress Note - Cardiology ---
Cardiology SOAP Progress Note Subjective: Pt aphasic and non-communicative Objective: I&O/Vital Signs 11/01/19 11/01/19 11/01/19 11/02/19 22:53 23:00 23:59 00:00 Pulse 112 116 Resp 12 14 B/P (MAP) 148/55 (86) 129/71 (90) Pulse Ox 93 93 93 O2 Delivery Room Air Room Air Room Air Room Air 11/02/19 11/02/19 11/02/19 11/02/19 00:10 01:00 01:00 02:00 Temp 37.0 Pulse 112 112 107 Resp 12 12 B/P (MAP) 134/61 (85) 125/57 (79) Pulse Ox 92 94 O2 Delivery Room Air Room Air 11/02/19 11/02/19 11/02/19 11/02/19 02:07 03:00 04:00 04:21 Temp 36.6 Pulse 114 114 Resp 12 13 B/P (MAP) 143/71 (95) 150/75 (100) Pulse Ox 93 94 93 O2 Delivery Room Air Room Air Room Air 11/02/19 11/02/19 11/02/19 11/02/19 04:36 05:00 06:00 06:37 Pulse 108 113 Resp 12 12 B/P (MAP) 148/67 (94) 161/72 (101) Pulse Ox 93 92 92 O2 Delivery Room Air Room Air Room Air Room Air 11/02/19 11/02/19 11/02/19 11/02/19 07:00 07:00 08:00 08:00 Pulse 122 116 120 Resp 7 10 B/P (MAP) 155/76 (102) 162/76 (104) Pulse Ox 91 92 O2 Delivery Room Air Room Air Room Air 11/02/19 09:00 Pulse 117 Resp 10 B/P (MAP) Pulse Ox 92 O2 Delivery Room Air 11/02/19 00:00 Intake Total 1510 ml Output Total 450 ml Balance 1060 ml Constitutional: other (cannot determine orientation, pt not verbally responsive, well developed, well nourished) Respiratory: No accessory muscle use; other (good bilat air entry) Cardiovascular: regular rate-rhythm, S1 and S2, systolic murmur (soft LION at card base) Gastrointestional: No tender; soft; No guarding, No rebound; audible bowel sounds Extremities: No clubbing, No cyanosis, No significant edema Neurologic/Psychiatric: other (aphasic and essentially unresponsive, cannot cooperate with a neuro exam) Skin: warm/dry, other (scleroderma skin changes noted to face and extremities) Results/Procedures: Labs Laboratory Tests 11/01/19 16:18: Ammonia 21 11/02/19 03:05: White Blood Count 9.4, Red Blood Count 3.43L, Hemoglobin 9.6L, Hematocrit 30L, Mean Corpuscular Volume 87, Mean Corpuscular Hemoglobin 28, Mean Corpuscular Hemoglobin Concent 32, Red Cell Distribution Width 18.0H, Platelet Count 139, Mean Platelet Volume 10.5H, Neutrophils (%) (Auto) 83H, Lymphocytes (%) (Auto) 12, Monocytes (%) (Auto) 4, Eosinophils (%) (Auto) 0, Basophils (%) (Auto) 0, Neutrophils # (Auto) 7.8, Lymphocytes # (Auto) 1.2, Monocytes # (Auto) 0.4, Eosinophils # (Auto) 0.0, Basophils # (Auto) 0.0, Sodium Level 137, Potassium Level 4.0, Chloride Level 107, Carbon Dioxide Level 17L, Anion Gap 13, Blood Urea Nitrogen 52H, Creatinine 1.23, Estimat Glomerular Filtration Rate 45, BUN/Creatinine Ratio 42, Glucose Level 127H, Calcium Level 8.1L, Corrected Calcium 9.5, Phosphorus Level 3.7, Magnesium Level 2.1, Total Bilirubin 1.1H, Aspartate Amino Transf (AST/SGOT) 228H, Alanine Aminotransferase (ALT/SGPT) 139H , Alkaline Phosphatase 268H, Total Protein 5.9L, Albumin 2.3L Microbiology 10/30/19 Gram Stain - Final, Resulted 10/30/19 Sputum Culture - Preliminary, Resulted Usual upper respiratory joana Moraxella catarrhalis Staphylococcus aureus 10/30/19 Urine Culture - Final, Complete NO GROWTH 10/30/19 Blood Culture - Preliminary, Resulted No growth A/P: Assessment: Influenza B Severe sepsis, presentation with septic shock Mental status changes: sepsis vs stroke Recent vs ac CVA. MRI on 11/01/19: Small punctate foci of acute ischemia involving the left dasilva radiata and right parietal lobe. No mass effect or hemorrhage. Given the bilateral distribution and punctate size, there is concern for embolic source. Echo on 10/31/29 (Dr Wallace): LVEF 80-85%, grade 1 menjivar dysfunction, PASP 55-60 mmHg. No evidence of endocarditis or intracardiac thrombus on TTE of 11/01/19 Liver enzyme elevation of undetermined etiology, worsening Anemia of undetermined etiology, worsening (may be dilutional due to iv fluid admin) Acute renal failure, likely ATN due to septic shock, improving Metabolic acidosis, likely due to ac renal failure, unchanged Scleroderma, treated chronically with steroids No significant disease of either carotid bifurcation per carotid u/s of 11/01/19 Plan: * I reviewed her records and examined the patient. Management is complex and prognosis is guarded, given multiple, concomitant medical problems * Continue iv fluids and add bicarb to address acidosis * Currently exhibiting htn and sinus tach. Beta-blockers appear reasonable, if the Med Svce does not wish to keep bp high to treat stroke * Given evidence of embolic stroke, occult A Fib is a consideration. Appears reasonable to treat with stroke-prophylaxis dose of enoxaparin * Management of stroke, sepsis, anemia and renal & hepatic failure/injury is with the Med Svce * Monitor labs closely JENA SCHILLING MD FACP FACC CCDS Nov 02, 2019 10:18
[2019-11-02] MEDS ORDERED: 1/2 NS IV ONE (11:15)
[2019-11-02] MEDS ORDERED: SODIUM BICARBONATE IV ONE (11:15)
[2019-11-02] MEDS: ENOXAPARIN 80 MG/0.8 ML (LOVENOX) SYR SC SCH ×2 (11:41→23:41)
[2019-11-02] MEDS: meTOprolol 5 MG/5 ML (LOPRESSOR) VIAL IV SCH ×4 (11:41→23:41)
--- NOTE | 2019-11-02 12:14 | Progress Note ---
Subjective Subjective Date Seen by Provider: Nov 02, 2019 Time Seen by Provider: 11:00 59 yo F critically ill. She attempts to talk/make noise but unable to understand. Review of Systems ROS Unable to Obtain: unable to communicate All Other Systems Reviewed All Other Systems Reviewed: Yes Objective Exam Vital Signs Vital Signs Date Time Temp Pulse Resp B/P (MAP) Pulse Ox O2 Delivery O2 Flow Rate FiO2 11/02/19 11:28 Room Air 11/02/19 11:00 121 15 186/81 (116) 93 Room Air 11/02/19 10:16 95 Room Air 11/02/19 10:00 109 10 173/78 (109) 94 Room Air 11/02/19 09:00 117 10 92 Room Air 11/02/19 08:00 Room Air 11/02/19 08:00 120 10 162/76 (104) 92 Room Air 11/02/19 07:00 116 7 155/76 (102) 91 Room Air 11/02/19 07:00 122 11/02/19 06:37 92 Room Air 11/02/19 06:00 113 12 161/72 (101) 92 Room Air 11/02/19 05:00 108 12 148/67 (94) 93 Room Air 11/02/19 04:36 Room Air 11/02/19 04:21 36.6 11/02/19 04:00 114 13 150/75 (100) 93 Room Air 11/02/19 03:00 114 12 143/71 (95) 94 Room Air 11/02/19 02:07 93 Room Air 11/02/19 02:00 107 12 125/57 (79) 94 Room Air 11/02/19 01:00 112 11/02/19 01:00 112 12 134/61 (85) 92 Room Air 11/02/19 00:10 37.0 11/02/19 00:00 116 14 129/71 (90) 93 Room Air 11/01/19 23:59 Room Air 11/01/19 23:00 112 12 148/55 (86) 93 Room Air 11/01/19 22:53 93 Room Air 11/01/19 22:00 112 13 150/75 (100) 93 Room Air 11/01/19 21:00 114 12 154/75 (101) 91 Room Air 11/01/19 20:00 37.1 11/01/19 20:00 Room Air 11/01/19 19:00 101 11/01/19 18:51 94 Room Air 11/01/19 18:00 100 12 164/81 (108) 94 Room Air 11/01/19 16:00 Room Air 11/01/19 16:00 36.8 11/01/19 16:00 74 19 144/58 (86) 95 Room Air 11/01/19 14:00 109 9 134/73 (93) 93 Room Air 11/01/19 13:00 107 12 159/78 (105) 95 Room Air 11/01/19 13:00 36.8 11/01/19 12:46 105 I & O 11/02/19 07:00 Intake Total 1510 ml Output Total 775 ml Balance 735 ml General Appearance: Mild Distress HEENT: PERRL/EOMI, Other (Mucous membranes dry) Neck: Supple Respiratory: Lungs Clear Cardiovascular: Tachycardia Gastrointestinal: Normal Bowel Sounds, Non Tender, Soft Rectal: Deferred Back: Normal Inspection Extremity: Non Tender, No Calf Tenderness, No Pedal Edema Neurologic/Psychiatric: Alert Skin: Other (ulcers/sores to bilateral hands/ankles/feet tight facial skin -scleroderma-) Results Lab Laboratory Tests 11/01/19 16:18: Ammonia 21 11/02/19 03:05: White Blood Count 9.4, Red Blood Count 3.43L, Hemoglobin 9.6L, Hematocrit 30L, Mean Corpuscular Volume 87, Mean Corpuscular Hemoglobin 28, Mean Corpuscular Hemoglobin Concent 32, Red Cell Distribution Width 18.0H, Platelet Count 139, Mean Platelet Volume 10.5H, Neutrophils (%) (Auto) 83H, Lymphocytes (%) (Auto) 12, Monocytes (%) (Auto) 4, Eosinophils (%) (Auto) 0, Basophils (%) (Auto) 0, Neutrophils # (Auto) 7.8, Lymphocytes # (Auto) 1.2, Monocytes # (Auto) 0.4, Eos inophils # (Auto) 0.0, Basophils # (Auto) 0.0, Sodium Level 137, Potassium Level 4.0, Chloride Level 107, Carbon Dioxide Level 17L, Anion Gap 13, Blood Urea Nitrogen 52H, Creatinine 1.23, Estimat Glomerular Filtration Rate 45, BUN/Creatinine Ratio 42, Glucose Level 127H, Calcium Level 8.1L, Corrected Calcium 9.5, Phosphorus Level 3.7, Magnesium Level 2.1, Total Bilirubin 1.1H, Aspartate Amino Transf (AST/SGOT) 228H, Alanine Aminotransferase (ALT/SGPT) 139H , Alkaline Phosphatase 268H, Total Protein 5.9L, Albumin 2.3L Microbiology 10/30/19 Gram Stain - Final, Resulted 10/30/19 Sputum Culture - Preliminary, Resulted Usual upper respiratory joana Moraxella catarrhalis Staphylococcus aureus 10/30/19 Urine Culture - Final, Complete NO GROWTH 10/30/19 Blood Culture - Preliminary, Resulted No growth Assessment/Plan Assessment/Plan Assessment and Plan 11/02/19 -changing IVF - adding bicarb to improve her metabolic acidosis -adding metoprolol 2.5mg iv to help with tachycardia and hypertension -stepping up lovenox to therapeutic dosage- as it could be atrial fibrillation- causing the cerebral emboli. -continue cefepime and vancomycin for endocarditis coverage- staph and strep in blood culture could be contaminate- Prognosis- poor aware- pt is DNR. Will continue to monitor over the weekend. Problems: (1) Sepsis Qualifiers: (2) Cerebral arterial embolism Assessment & Plan: both sides of brain- right parietal lobe and left dasilva radiata- MRI 11/01/19 (3) Elevated liver enzymes (4) Cholelithiasis Qualifiers: (5) Splenomegaly (6) Acute renal failure Qualifiers: Qualified Codes: N17.9 - Acute kidney failure, unspecified Assessment & Plan: improving with IVF (7) Influenza B Assessment & Plan: tamiflu- not getting right now as she is not taking po. (8) Metabolic acidosis Clinical Quality Measures DVT/VTE Risk/Contraindication: Risk Factor Score Per Nursin RFS Level Per Nursing on Admit: 4+=Very High EYAL WRAY MD Nov 02, 2019 12:14
[2019-11-02] MEDS ORDERED: VANCOMYCIN INJECTION 1,250 MG in NS (IVPB) 250 ML IV SCH ×3 (13:00→17:30)
--- NOTE | 2019-11-02 23:56 | NUR ---
THIS RN CONTACTED KAREN ABOUT PT'S INCREASED AGITATION THAT THIS RN BELIEVED TO BE SEVERE PAIN. NEW ORDERS RECEIVED, SEE ORDER HX.
[2019-11-03] VITALS (17 sets, daily range): BP systolic 136–195; BP diastolic 66–99
[2019-11-03] MEDS ORDERED: morphine INJ 10 MG/ML 1ML (SYR OR VIAL) IVP STA (00:06)
[2019-11-03] MEDS: VASOPRESSIN INJECTION 20 UNIT in NORMAL SALINE 100 ML IV SCH ×3 (00:24→16:12)
[2019-11-03] MEDS ORDERED: morphine INJ 4 MG/ML 1 ML (VIAL/SYRINGE) IVP ONE (00:30)
[2019-11-03] MEDS: RT-ALBUTEROL/IPRATROPIUM 3 ML (DUONEB) VIAL INH SCH (01:00)
[2019-11-03] MEDS: morphine INJ 4 MG/ML 1 ML (VIAL/SYRINGE) IVP PRN ×3 (02:32→15:29)
[2019-11-03 02:54] LABS: BASOPHILS % (AUTO) 0 % (0-10); EOSINOPHILS % (AUTO) 0 % (0-10); HEMATOCRIT 29 % (35-52); HEMOGLOBIN 9.5 G/DL (11.5-16.0); LYMPHOCYTES # (AUTO) 0.8 X 10^3 (1.0-4.0); LYMPHOCYTES % (AUTO) 14 % (12-44); MEAN CORPUSCULAR HEMOGLOBIN 28 PG (25-34); MEAN CORPUSCULAR HGB CONC 33 G/DL (32-36); MEAN CORPUSCULAR VOLUME 86 FL (80-99); MEAN PLATELET VOLUME 10.6 FL (7.4-10.4); MONOCYTES # (AUTO) 0.4 X 10^3 (0.0-1.0); MONOCYTES % (AUTO) 7 % (0-12); NEUTROPHILS # (AUTO) 4.5 X 10^3 (1.8-7.8); NEUTROPHILS % (AUTO) 79 % (42-75); PLATELET COUNT 129 10^3/uL (130-400); RED CELL DISTRIBUTION WIDTH 18.1 % (10.0-14.5); WHITE BLOOD COUNT 5.7 10^3/uL (4.3-11.0)
[2019-11-03 03:07] LABS: BUN/CREATININE RATIO 59; CALCIUM 7.6 MG/DL (8.5-10.1); CARBON DIOXIDE 19 MMOL/L (21-32); CHLORIDE 110 MMOL/L (98-107); CREATININE SERUM 0.83 MG/DL (0.60-1.30); GFR ESTIMATED > 60; GLUCOSE 124 MG/DL (70-105); MAGNESIUM 2.1 MG/DL (1.6-2.4); PHOSPHORUS 3.2 MG/DL (2.3-4.7); POTASSIUM 4.1 MMOL/L (3.6-5.0); SODIUM 141 MMOL/L (135-145)
[2019-11-03] MEDS: meTOprolol 5 MG/5 ML (LOPRESSOR) VIAL IV SCH ×6 (04:20→15:29)
[2019-11-03] MEDS: LACTATED RINGERS 1,000 ML IV SCH ×2 (04:52→11:24)
[2019-11-03] MEDS: MAGNESIUM 1 GM/100 ML IVPB 100 ML IV SCH (05:33)
[2019-11-03] MEDS: NOREPINEPHRINE 4 MG/250 ML 250 ML IV SCH ×2 (05:33→12:29)
[2019-11-03] MEDS: POTASSIUM CL 10MEQ/50ML IVPB 50 ML IV SCH (05:33)
[2019-11-03] MEDS: KCL 20 MEQ TAB (K-DUR) PO SCH (05:33)
[2019-11-03] MEDS: HYDROCORTISONE 100 MG/2 ML (Solu-CORTEF) VIAL IV SCH ×2 (06:00→13:53)
--- NOTE | 2019-11-03 07:53 | Diagnostic Imaging Report ---
INDICATION: Dyspnea AP view of chest is obtained with comparison made to study of one day earlier. Overall heart size and pulmonary vascularity are within normal limits. There is mild basilar atelectasis. No pneumothorax is detected. IMPRESSION: Mild basilar atelectasis similar to previous study. No new abnormality is identified. Dictated by: Dictated on workstation # [id number]
[2019-11-03] MEDS: OSELTAMIVIR 30 MG (TAMIFLU) CAPSULE PO SCH (09:00)
--- NOTE | 2019-11-03 09:19 | Progress Note - Cardiology ---
Cardiology SOAP Progress Note Subjective: Not verbally responsive Objective: I&O/Vital Signs 11/02/19 11/02/19 11/02/19 11/02/19 21:26 22:00 23:00 23:46 Pulse 110 103 Resp 12 19 B/P (MAP) 171/79 (109) 185/87 (119) Pulse Ox 94 93 93 O2 Delivery Room Air Room Air Room Air Room Air 11/03/19 11/03/19 11/03/19 11/03/19 00:00 00:28 01:00 01:00 Temp 37.4 Pulse 81 96 94 Resp 12 15 B/P (MAP) 177/92 (120) 138/73 (94) Pulse Ox 93 90 O2 Delivery Room Air Room Air 11/03/19 11/03/19 11/03/19 11/03/19 01:01 02:00 03:00 04:00 Pulse 108 89 78 Resp 12 16 16 B/P (MAP) 179/87 (117) 153/77 (102) 136/66 (89) Pulse Ox 92 92 96 98 O2 Delivery Room Air Room Air Room Air Room Air 11/03/19 11/03/19 11/03/19 11/03/19 04:33 05:00 06:00 06:02 Temp 36.8 Pulse 72 71 Resp 16 15 B/P (MAP) 195/93 (127) 182/95 (124) Pulse Ox 99 99 O2 Delivery Room Air Room Air Room Air 11/03/19 11/03/19 11/03/19 07:00 07:00 08:00 Pulse 71 88 71 Resp 7 9 B/P (MAP) 186/88 (120) 181/87 (118) Pulse Ox 100 99 O2 Delivery Room Air Room Air 11/03/19 00:00 Intake Total 10 ml Output Total 675 ml Balance -665 ml Constitutional: other (cannot determine orientation, pt not verbally responsive, well developed, well nourished) Respiratory: No accessory muscle use; other (good bilat air entry) Cardiovascular: regular rate-rhythm, S1 and S2, systolic murmur (soft LION at card base) Gastrointestional: No tender; soft; No guarding, No rebound; audible bowel sounds Extremities: No clubbing, No cyanosis, No significant edema Neurologic/Psychiatric: other (aphasic and essentially unresponsive, cannot cooperate with a neuro exam) Skin: warm/dry, other (scleroderma skin changes noted to face and extremities) Results/Procedures: Labs Laboratory Tests 11/03/19 02:34: White Blood Count 5.7, Red Blood Count 3.36L, Hemoglobin 9.5L, Hematocrit 29L, Mean Corpuscular Volume 86, Mean Corpuscular Hemoglobin 28, Mean Corpuscular Hemoglobin Concent 33, Red Cell Distribution Width 18.1H, Platelet Count 129L, Mean Platelet Volume 10.6H, Neutrophils (%) (Auto) 79H, Lymphocytes (%) (Auto) 14, Monocytes (%) (Auto) 7, Eosinophils (%) (Auto) 0, Basophils (%) (Auto) 0, Neutrophils # (Auto) 4.5, Lymphocytes # (Auto) 0.8L, Monocytes # (Auto) 0.4, Eosinophils # (Auto) 0.0, Basophils # (Auto) 0.0, Sodium Level 141, Potassium Level 4.1, Chloride Level 110H, Carbon Dioxide Level 19L, Anion Gap 12, Blood Urea Nitrogen 49H, Creatinine 0.83, Estimat Glomerular Filtration Rate > 60, BUN/Creatinine Ratio 59, Glucose Level 124H, Calcium Level 7.6L, Phosphorus Level 3.2, Magnesium Level 2.1 Microbiology 10/30/19 Gram Stain - Final, Resulted 10/30/19 Sputum Culture - Preliminary, Resulted Usual upper respiratory joana Moraxella catarrhalis Staphylococcus aureus 10/30/19 Urine Culture - Final, Complete NO GROWTH 10/30/19 Blood Culture - Preliminary, Resulted No growth Laboratory Tests 11/02/19 03:05 11/03/19 02:34 A/P: Assessment: Influenza B Severe sepsis, presentation with septic shock Questionable staphylococcal septicemia (one out of two blood cultures positive for staph aureus and strep pyogenes) Mental status changes: sepsis vs stroke Recent vs ac CVA. MRI on 11/01/19: Small punctate foci of acute ischemia involving the left dasilva radiata and right parietal lobe. No mass effect or hemorrhage. Given the bilateral distribution and punctate size, there is concern for embolic source. Echo on 10/31/29 (Dr Wallace): LVEF 80-85%, grade 1 menjivar dysfunction, PASP 55-60 mmHg. No evidence of endocarditis or intracardiac thrombus on TTE of 11/01/19 Liver enzyme elevation of undetermined etiology, worsening, managed by the Med Svce Extensive cholelithiasis without bile duct dilatation on CT abdomen on 11/02/19, managed by the Med Svce Anemia of undetermined etiology (may be dilutional due to iv fluid admin) Acute renal failure, likely ATN due to septic shock, improving Metabolic acidosis, improving Scleroderma, treated chronically with steroids No significant disease of either carotid bifurcation per carotid u/s of 11/01/19 Hypertension Plan: * Increase bb because of more hypertension * Continue iv fluids and bicarb to address acidosis * Continue to treat with stroke-prophylaxis dose of enoxaparin * Management of stroke, sepsis, anemia and renal & hepatic failure/injury is with the Med Svce * Monitor labs closely * Management is complex and prognosis is guarded, given multiple, concomitant medical problems JENA SCHILLING MD FACP FAC CCDS Nov 03, 2019 09:19
[2019-11-03] MEDS: PANTOPRAZOLE 40 MG (PROTONIX) VIAL IV SCH (09:30)
[2019-11-03] MEDS ORDERED: RT-ALBUTEROL/IPRATROPIUM 3 ML (DUONEB) VIAL INH PRN (09:45)
--- NOTE | 2019-11-03 10:45 | Progress Note ---
Subjective Subjective Date Seen by Provider: Nov 03, 2019 Time Seen by Provider: 09:30 59 yo F critically ill. She attempts to talk/make noise but unable to understand. she does move her eyes but does not follow commands. She is in signficant pain especially with any touch or attempt to move/adjust her. Review of Systems ROS Unable to Obtain: unable to communicate All Other Systems Reviewed All Other Systems Reviewed: Yes Objective Exam Vital Signs Vital Signs Date Time Temp Pulse Resp B/P (MAP) Pulse Ox O2 Delivery O2 Flow Rate FiO2 11/03/19 09:00 73 10 181/95 (123) 100 Room Air 11/03/19 08:00 Room Air 11/03/19 08:00 71 9 181/87 (118) 99 Room Air 11/03/19 07:00 88 11/03/19 07:00 71 7 186/88 (120) 100 Room Air 11/03/19 06:02 36.8 11/03/19 06:00 71 15 182/95 (124) 99 Room Air 11/03/19 05:00 72 16 195/93 (127) 99 Room Air 11/03/19 04:33 Room Air 11/03/19 04:00 78 16 136/66 (89) 98 Room Air 11/03/19 03:00 89 16 153/77 (102) 96 Room Air 11/03/19 02:00 108 12 179/87 (117) 92 Room Air 11/03/19 01:01 92 Room Air 11/03/19 01:00 94 15 138/73 (94) 90 Room Air 11/03/19 01:00 96 11/03/19 00:28 37.4 11/03/19 00:00 81 12 177/92 (120) 93 Room Air 11/02/19 23:46 Room Air 11/02/19 23:00 103 19 185/87 (119) 93 Room Air 11/02/19 22:00 110 12 171/79 (109) 93 Room Air 11/02/19 21:26 94 Room Air 11/02/19 21:00 84 12 168/93 (118) 94 Room Air 11/02/19 20:00 37.2 11/02/19 20:00 106 12 172/95 (120) 94 Room Air 11/02/19 20:00 Room Air 11/02/19 19:00 107 12 175/82 (113) 94 Room Air 11/02/19 19:00 106 11/02/19 18:28 93 Room Air 11/02/19 18:00 105 11 134/70 (91) 94 Room Air 11/02/19 17:00 111 8 166/80 (108) 93 Room Air 11/02/19 16:00 115 8 163/80 (107) 92 Room Air 11/02/19 16:00 36.4 11/02/19 15:06 Room Air 11/02/19 15:00 121 8 157/75 (102) 92 Room Air 11/02/19 14:18 93 Room Air 11/02/19 14:00 110 9 189/73 (111) 94 Room Air 11/02/19 13:00 113 8 170/86 (114) 94 Room Air 11/02/19 12:36 115 11/02/19 12:00 115 8 156/81 (106) 92 Room Air 11/02/19 12:00 36.2 11/02/19 11:28 Room Air 11/02/19 11:00 121 15 186/81 (116) 93 Room Air I & O 11/03/19 07:00 Intake Total 3060 ml Output Total 1080 ml Balance 1980 ml General Appearance: Moderate Distress (pain) HEENT: PERRL/EOMI, Other (Mucous membranes dry) Neck: Supple Respiratory: Lungs Clear Cardiovascular: Regular Rate, Rhythm Gastrointestinal: Normal Bowel Sounds, Non Tender, Soft Rectal: Deferred Back: Normal Inspection Extremity: No Calf Tenderness, No Pedal Edema, Other (contractures of arms/legs. tight shiny skin) Neurologic/Psychiatric: Alert Skin: Other (ulcers/sores to bilateral hands/ankles/feet tight facial skin -scleroderma-) Results Lab Laboratory Tests 11/03/19 02:34: White Blood Count 5.7, Red Blood Count 3.36L, Hemoglobin 9.5L, Hematocrit 29L, Mean Corpuscular Volume 86, Mean Corpuscular Hemoglobin 28, Mean Corpuscular Hemoglobin Concent 33, Red Cell Distribution Width 18.1H, Platelet Count 129L, Mean Platelet Volume 10.6H, Neutrophils (%) (Auto) 79H, Lymphocytes (%) (Auto) 14, Monocytes (%) (Auto) 7, Eosinophils (%) (Auto) 0, Basophils (%) (Auto) 0, Neutrophils # (Auto) 4.5, Lymphocytes # (Auto) 0.8L, Monocytes # (Auto) 0.4, Eosinophils # (Auto) 0.0, Basophils # (Auto) 0.0, Sodium Level 141, Potassium Level 4.1, Chloride Level 110H, Carbon Dioxide Level 19L, Anion Gap 12, Blood Urea Nitrogen 49H, Creatinine 0.83, Estimat Glomerular Filtration Rate > 60, BUN/Creatinine Ratio 59, Glucose Level 124H, Calcium Level 7.6L, Phosphorus Level 3.2, Magnesium Level 2.1 Microbiology 10/30/19 Gram Stain - Final, Complete 10/30/19 Sputum Culture - Final, Complete Usual upper respiratory joana Moraxella catarrhalis Staphylococcus aureus 10/30/19 Urine Culture - Final, Complete NO GROWTH 10/30/19 Blood Culture - Preliminary, Resulted No growth Assessment/Plan Assessment/Plan Assessment and Plan 11/02/19 -changing IVF - adding bicarb to improve her metabolic acidosis -adding metoprolol 2.5mg iv to help with tachycardia and hypertension -stepping up lovenox to therapeutic dosage- as it could be atrial fibrillation- causing the cerebral emboli. -continue cefepime and vancomycin for endocarditis coverage- staph and strep in blood culture could be contaminate- 11/03/19- increased her morphine to 4mg- as she is in severe pain/discomfort. updated on his 's status- he agrees he wants her comfortable and not suffer in pain. Prognosis- poor aware- pt is DNR. Likely go to comfort care tomorrow. Problems: (1) Sepsis Qualifiers: (2) Cerebral arterial embolism Assessment & Plan: both sides of brain- right parietal lobe and left dasilva radiata- MRI 11/01/19 (3) Elevated liver enzymes (4) Cholelithiasis Qualifiers: (5) Splenomegaly (6) Acute renal failure Qualifiers: Qualified Codes: N17.9 - Acute kidney failure, unspecified Assessment & Plan: improving with IVF (7) Influenza B Assessment & Plan: tamiflu- not getting right now as she is not taking po. (8) Metabolic acidosis Clinical Quality Measures DVT/VTE Risk/Contraindication: Risk Factor Score Per Nursin RFS Level Per Nursing on Admit: 4+=Very High EYAL WRAY MD Nov 03, 2019 10:45
[2019-11-03] MEDS: CEFEPIME 1,000 MG/SWFI 10 ML IV PUSH IV SCH ×2 (11:24)
[2019-11-03] MEDS: ENOXAPARIN 80 MG/0.8 ML (LOVENOX) SYR SC SCH (11:24)
[2019-11-03] MEDS ORDERED: TROUGH ORDER-PHARMACY XX NR ×2 (12:00→16:30)
[2019-11-03] MEDS: ONDANSETRON 4 MG/2 ML (SDV) Z0FRAN IVP PRN (16:12)
[2019-11-03] MEDS ORDERED: ARTIFICAL TEARS 0.4 ML UNIT DOSE (REFRESH PLUS) OU PRN (17:00)
[2019-11-03] MEDS ORDERED: PROMETHAZINE INJ 25 MG/ML (PHENERGAN) AMP IVP PRN (17:00)
[2019-11-03] MEDS: SCOPOLAMINE 1.5 MG (TRANSDERM-SCOP) PATCH TOP SCH (17:00)
[2019-11-03] MEDS ORDERED: BISACODYL 10 MG SUPP (DULCOLAX) PR PRN (17:00)
[2019-11-03] MEDS: LORazepam INJ 2 MG/ML (ATIVAN) VIAL IVP PRN (17:23)
--- NOTE | 2019-11-03 18:15 | NUR ---
TRANSFERRED FROM ICU TO ROOM 427 PER BED.PT. ON COMFORT CARE. SLEEPING. RESP. SHALLOW. SKIN W/D. REMAINS IN DROPLET ISOLATION. NO APPARENT PAIN AT THIS TIME.
[2019-11-03] MEDS: morphine INJ 4 MG/ML 1 ML (VIAL/SYRINGE) IV PRN (22:00)
[2019-11-04] MEDS: LORazepam INJ 2 MG/ML (ATIVAN) VIAL IVP PRN ×2 (02:44→22:28)
[2019-11-04] MEDS: morphine INJ 4 MG/ML 1 ML (VIAL/SYRINGE) IV PRN ×4 (05:55→23:43)
--- NOTE | 2019-11-04 11:20 | NUR ---
Pastoral care visit.
--- NOTE | 2019-11-04 13:00 | NUR ---
Received report from CESAR Clifton. This RN assumed care of pt at this time.
--- NOTE | 2019-11-04 13:05 | Progress Note ---
Subjective Date Seen by a Provider: Nov 04, 2019 Time Seen by a Provider: 13:02 Subjective/Events-last exam Fwup influenza B, sepsis, bilateral emboli with ischemic stroke. Awake today and talking but states unable to drink or eat and unable to move her body. Objective Exam Vital Signs Date Time Temp Pulse Resp B/P (MAP) Pulse Ox O2 Delivery O2 Flow Rate FiO2 11/04/19 10:21 Room Air 11/04/19 09:00 Room Air 11/03/19 21:00 Room Air 11/03/19 16:00 66 192/98 (129) 99 Room Air 11/03/19 15:38 36.6 11/03/19 15:09 Room Air 11/03/19 15:00 68 191/92 (125) 100 Room Air 11/03/19 14:00 64 13 191/92 (125) 98 Room Air I & O 11/04/19 07:00 Intake Total 0 ml Output Total 900 ml Balance -900 ml Capillary Refill : NONE General Appearance: Mild Distress Respiratory: Lungs Clear Cardiovascular: Tachycardia Extremity: Non Tender, No Calf Tenderness, No Pedal Edema Neurologic/Psychiatric: Alert, Motor Weakness Results Lab Microbiology 10/30/19 Gram Stain - Final, Complete 10/30/19 Sputum Culture - Final, Complete Usual upper respiratory joana Moraxella catarrhalis Staphylococcus aureus 10/30/19 Urine Culture - Final, Complete NO GROWTH 10/30/19 Blood Culture - Preliminary, Resulted No growth Assessment/Plan Assessment/Plan Assess & Plan/Chief Complaint 1. Influenza B--done with Tx 2. Severe Dehydration with Acute Renal Failure--on comfort care 3. Sepsis with Staph Aureus--on comfort care 4. Scleroderma--looking at NH/Hospice as knows [facility] care is needed if she survives 5. Hypotension--improved 6. Metabolic Acidosis with metabolic encephalopathy-- 7. Bilateral Cerebral Emboli with Ischemia--on comfort care, not able to eat/drink or move at this point so proceed with hospice consult and placement Clinical Quality Measures Admission Status Admission Dx 1. Influenza B--treat with tamiflu 2. Severe Dehydration with Acute Renal Failure--aggressive IVF rehydration and monitor BUN/Cr 3. Hypotension--aggressive hydration and pressors if needed 4. Metabolic Acidosis with Electrolyte Imbalance--Hydrate and replace electrolytes as needed 5. Bacturia--culture urine and cover with maxipime until cultures final 6. Scleroderma with Vasculitis--patient has not been on any immunosuppressive therapy or steroids for at least 3-4mos DVT/VTE Risk/Contraindication: Risk Factor Score Per Nursin RFS Level Per Nursing on Admit: 4+=Very High DOLORES LUCERO DO Nov 04, 2019 13:05
--- NOTE | 2019-11-04 13:37 | Progress Note - Cardiology ---
Cardiology SOAP Progress Note Subjective: Not able to communicate Her by her bedside at time of this exam Objective: I&O/Vital Signs 11/04/19 11/04/19 09:00 10:21 O2 Delivery Room Air Room Air 11/04/19 00:00 Intake Total 0 ml Output Total 600 ml Balance -600 ml Constitutional: other (cannot determine orientation, pt not verbally responsive, well developed, well nourished) Respiratory: No accessory muscle use; other (good bilat air entry) Cardiovascular: regular rate-rhythm, S1 and S2, systolic murmur (soft LION at card base) Gastrointestional: No tender; soft; No guarding, No rebound; audible bowel sounds Extremities: No clubbing, No cyanosis, No significant edema Neurologic/Psychiatric: other (aphasic and essentially unresponsive, cannot cooperate with a neuro exam) Skin: warm/dry, other (scleroderma skin changes noted to face and extremities) Results/Procedures: Labs Microbiology 10/30/19 Gram Stain - Final, Complete 10/30/19 Sputum Culture - Final, Complete Usual upper respiratory joana Moraxella catarrhalis Staphylococcus aureus 10/30/19 Urine Culture - Final, Complete NO GROWTH 10/30/19 Blood Culture - Preliminary, Resulted No growth A/P: Assessment: Influenza B Severe sepsis, presentation with septic shock Questionable staphylococcal septicemia (one out of two blood cultures positive for staph aureus and strep pyogenes) Mental status changes: sepsis vs stroke Recent vs ac CVA. MRI on 11/01/19: Small punctate foci of acute ischemia involving the left dasilva radiata and right parietal lobe. No mass effect or hemorrhage. Given the bilateral distribution and punctate size, there is concern for embolic source. Echo on 10/31/29 (Dr Wallace): LVEF 80-85%, grade 1 menjivar dysfunction, PASP 55-60 mmHg. No evidence of endocarditis or intracardiac thrombus on TTE of 11/01/19 Liver enzyme elevation of undetermined etiology, worsening, managed by the [facility] Extensive cholelithiasis without bile duct dilatation on CT abdomen on 11/02/19, managed by the [facility] Anemia of undetermined etiology (may be dilutional due to iv fluid admin) Acute renal failure, likely ATN due to septic shock, improving Metabolic acidosis, improving Scleroderma, treated chronically with steroids No significant disease of either carotid bifurcation per carotid u/s of 11/01/19 Hypertension Plan: * I reviewed Dr Gupta's notes * I discussed her case with patient's . He does not wish to pursue further cardiac or other w/u. Desires comfort care only * We will sign off. Please call if needed Clinical Quality Measures Type of Care: Type of Care: Comfort Measures JENA SCHILLING MD FACP [facility] Nov 04, 2019 13:37
--- NOTE | 2019-11-04 15:28 | NUR ---
CM/SS: Visited with spouse as to plan for discharge Plan: Undetermined at at this time. Pt is comfort care, and may pass here or my go to [facility] for placement. Summary: Visited with spouse as to plan for discharge and he reports that pt will not be leaving here and no plan for discharging. This worker discusses comfort care and he reports that pt just woke up on today, and had been non responsive prior to today. He reports his daughters came over the weekend from [facility]. He reports he is here as he is aware that when he leaves that he will not be able to return based on the change in the no visitor rule. Dr Gupta makes rounds and talks with spouse about hospice and placement options. He is open to pt going to [facility] as they live in [place]. He also has indicated he would like to use [facility] for end of life care. He also knows that if things change for pt she may remain here and pass. Referral made to [facility] and [facility]. [facility] ([facility]) [phone], talks with spouse on the phone as to their services. She calls back to let this worker know that she spoke with spouse. She also shared that he did not want any printed information at this time for Hospice. [facility] calls back about the referral. They are reviewing it and the insurance is [facility] [place]. They are not in the network with them She will run it and get back with this worker on tomorrow. This worker will follow up.
--- NOTE | 2019-11-04 16:20 | ST Dysphagia Evaluation ---
Speech Evaluation-General Medical Diagnosis Influenza B, Inés Onset Date: Nov 04, 2019 Therapy Diagnosis Therapy Diagnosis: Oropharyngeal Dysphagia Precautions Precautions: Aspiration Referral Referring Physician: Dr. Gupta Medical History Reviewed History: Yes Social History Current Living Status: Spouse Speech PLF/Current-Dysphagia Prior Level of Function Patient lived at home with her where he assisted her with her daily needs. Subjective Patient was cooperative with the Bedside Dysphagia Evaluation. Cognitive Status Patient Orientation: Person, Place, Situation Oral Motor Skills Dentition: Natural Patient was NPO pending BDE. Oral Expression Ability: Moderate Impairment Voice Voice Phonatory-Based Quality: Breathy, Hoarse, Weak Voice Pitch: Normal Voice Loudness: Moderately Soft/Quiet Face Facial Symmetry: Symmetrical Oral-Facial Assessment Oral-Facial Dentition: Overbite Labial Seal Description: Reduced ROM, Weak, Poor Coordination Smile: Reduced ROM, Poor Coordination Puff Cheeks: Reduced Strength Lingual Protrusion: Abnormal Lingual ROM: Abnormal Lingual Strength: Abnormal Pharynx Velopharyngeal Move.: Normal Volitional Dry Swallow: Yes Voluntary Cough: Yes Can Clear Throat Volitionally: Yes Dysphagia Evaluation Consistencies Presented: Thin Liquid, Mechanical Soft, Pureed Oral phase grossly within normal range of function. Pharyngeal phase within normal range of function. Dietary Recommendations: Mechanical Soft Liquid Recommendations: Thin Swallowing Precautions: Alternate Liquids/Solids, Double Swallow, Decreased Bolus 1/2 Tsp, Decreased Rate of Oral Intake, Liquids from Cup, Liquids from Spoon, Small Bites and Sips, Sitting Upright 90 Degrees, Sitting 90 Degrees 30 Post Intake Dysphagia Evaluation Summary Patient was pleasant and cooperative with the BDE. Patient was given 1/2 tsp of water x2 without difficulty. Patient was also given puree and mechanical soft at 1/2 bite size of each without difficulty. Patient is recommended for Dysphagia II diet level and thin liquids. This information was provided for her nurse and written on the white board in her room. Barriers to Learning Patient's medical status Speech-Plan Patient/Family Goals Patient/Family Goals: Patient plans on returning home with her upon hospital discharge. Treatment Plan Speech Therapy Treatment Plan: Discontinue ST Patient is on comfort care. Treatment Duration: Nov 04, 2019 Frequency: 1 time per week Estimated Hrs Per Day: .25 hour per day Rehab Potential: Poor Barriers to Learning: Patient's medical status Pt/Family Agrees to Plan: Yes Safety Risks/Education Teaching Recipient: Patient, Significant Other Teaching Methods: Demonstration, Discussion Response to Teaching: Verbalize Understanding, Return Demonstration Education Topics Provided: Diet level and safety of oral intake strategies Time Speech Therapy Time In: 16:00 Speech Therapy Time Out: 16:15 Total Billed Time: 15 Billed Treatment Time 1 JOSE DE JESUS Ivey Nov 04, 2019 16:20
[2019-11-04] MEDS: D5 1/2 NS W/KCL 10 MEQ/L 1,000 ML IV SCH (16:36)
[2019-11-04 17:02] VITALS: BP 117/95
[2019-11-04 19:17] VITALS: BP 184/104
[2019-11-04] MEDS: CEFEPIME INJECTION 1,000 MG in WATER (STERILE) FOR INJECTION 10 ML IV SCH (20:51)
[2019-11-04 23:50] VITALS: BP 125/83
[2019-11-05] MEDS: D5 1/2 NS W/KCL 10 MEQ/L 1,000 ML IV SCH ×4 (02:10→23:40)
[2019-11-05 04:09] VITALS: BP 148/86
[2019-11-05] MEDS: morphine INJ 4 MG/ML 1 ML (VIAL/SYRINGE) IV PRN ×3 (04:51→23:54)
[2019-11-05 05:38] LABS: BASOPHILS % (AUTO) 0 % (0-10); EOSINOPHILS % (AUTO) 0 % (0-10); HEMATOCRIT 29 % (35-52); HEMOGLOBIN 9.1 G/DL (11.5-16.0); LYMPHOCYTES # (AUTO) 0.9 X 10^3 (1.0-4.0); LYMPHOCYTES % (AUTO) 10 % (12-44); MEAN CORPUSCULAR HEMOGLOBIN 28 PG (25-34); MEAN CORPUSCULAR HGB CONC 32 G/DL (32-36); MEAN CORPUSCULAR VOLUME 90 FL (80-99); MEAN PLATELET VOLUME 10.6 FL (7.4-10.4); MONOCYTES # (AUTO) 0.6 X 10^3 (0.0-1.0); MONOCYTES % (AUTO) 6 % (0-12); NEUTROPHILS # (AUTO) 7.4 X 10^3 (1.8-7.8); NEUTROPHILS % (AUTO) 84 % (42-75); PLATELET COUNT 159 10^3/uL (130-400); RED CELL DISTRIBUTION WIDTH 18.1 % (10.0-14.5); WHITE BLOOD COUNT 8.8 10^3/uL (4.3-11.0)
[2019-11-05 05:53] LABS: POTASSIUM 3.5 MMOL/L (3.6-5.0); SODIUM 145 MMOL/L (135-145)
[2019-11-05 05:54] LABS: CHLORIDE 113 MMOL/L (98-107)
[2019-11-05 05:57] LABS: ALANINE AMINOTRANSFERASE 124 U/L (0-55); ALBUMIN 2.3 GM/DL (3.2-4.5); ALKALINE PHOSPHATASE 218 U/L (40-136); BILIRUBIN,TOTAL 1.4 MG/DL (0.1-1.0); BUN/CREATININE RATIO 39; CALCIUM 7.5 MG/DL (8.5-10.1); CARBON DIOXIDE 23 MMOL/L (21-32); CREATININE SERUM 0.51 MG/DL (0.60-1.30); GFR ESTIMATED > 60; GLUCOSE 99 MG/DL (70-105); TOTAL PROTEIN 5.7 GM/DL (6.4-8.2)
--- NOTE | 2019-11-05 06:50 | Diagnostic Imaging Report ---
INDICATION: Dyspnea. TECHNIQUE: Single view chest 3:05 AM. CORRELATION STUDY: 11/03/2019 FINDINGS: Right IJ central line unchanged. Heart size and mediastinum are stable. Vasculature is slightly prominent. Minimal atelectasis suggested about both lung bases. IMPRESSION: 1. Generally stable chest with minimal perihilar and bibasilar atelectasis. Dictated by: Dictated on workstation # [id number]
[2019-11-05] MEDS: CEFEPIME INJECTION 1,000 MG in WATER (STERILE) FOR INJECTION 10 ML IV SCH ×2 (08:32→20:47)
--- NOTE | 2019-11-05 09:16 | NUR ---
CM/SS: Phone Call to [facility] clerical specialist, Monalisa, notifying that spouse has determined that he wants pt to be treated, not comfort care, and to put the Hospice referral on hold at this time.
[2019-11-05 12:00] VITALS: BP 159/83
[2019-11-05] MEDS ORDERED: HOLD METFORMIN - RECEIVED CONTRAST 20 ML VIAL IV SCH (12:45)
[2019-11-05] MEDS ORDERED: IOHEXOL 350 MG/ML 100 ML (OMNIPAQUE 350) VIAL IV ONE (12:45)
[2019-11-05] MEDS ORDERED: NS 100 ML (IVPB) BAG IV ONE (12:45)
--- NOTE | 2019-11-05 13:29 | NUR ---
CM/SS: Visit with pt and spouse Sukhwinder (via phone) as to plan for discharge Plan: [facility] for skilled placement Summary: Pt reports she wants to go home, as she can not stay another night. Spouse is called to discuss what he would like for the discharge plan. He reports he can not take the pt home and that she will need placement. The phone is taken in the the pt and she is able to talk with spouse. Spouse does report that he can not take care of pt at home. Pt does hear this and still is begging to go home. Dr is scheduled to round later today. Spouse is also informed that the insurance is not in the network. Spouse would like to look somewhere else that can take his insurance. [facility] calls and report that they can possibly take the pt but will need some physical therapy notes and screenings for consideration, per the insurance. This worker will follow up. Addendum: 11/05/19 at 1608 by LUIS WOODS Call to spouse Sukhwinder - [phone] - put phone on speaker as pt is refusing to have CT done, as well as not taking medications. He does try and talk with pt. She continues to report that she wants to go home and that she is not going to take meds, as she thinks that someone is trying to kill her. Pt is reassured by spouse and this worker. Pt begins to get agitated and spouse is asked to end call, however he does request that this worker call his daughter Tayla [phone]. Call to Tayla - daughter [phone]. She tries to talk with pt as to her needing to take her medications as well as cooperate with staff. Pt continues to not want hear what pt is saying and that she just needs to go home. Daughter reports that pt was having hallucinations at home before her hospital stay. Physical therapy here to see pt, they are asked to return. Pt reports seeing someone in the closet. This worker talks with pt as to there not being anyone else in the room, this worker opens the bathroom door and turns on light so that pt can see. Pt seems reassured. Encouraged pt to work with physical therapy. Physical Therapy does return. Call to spouse Sukhwinder, let him know that pt did participate in physical therapy. He thanked this worker for the update. Physical therapy report to be sent to [facility].
[2019-11-05] MEDS ORDERED: ASPIRIN 81 MG CHEW (CHILDREN'S ASA) PO NR (14:00)
--- NOTE | 2019-11-05 14:00 | NUR ---
STAFF FROM CT HERE TO GET PATIENT AT THIS TIME FOR CT ANGIO, PATIENT REFUSED TO LET ADOLFO TAKE HER FOR THIS PROCEDURE. DR. LUCERO NOTIFIED AT THIS TIME NO NEW ORDERS.
--- NOTE | 2019-11-05 14:09 | Progress Note ---
Subjective Date Seen by a Provider: Nov 05, 2019 Time Seen by a Provider: 12:30 Subjective/Events-last exam Fwup influenza B, sepsis, bilateral emboli with ischemic stroke. Awake today and wanting to go home. Is able to lift arms slightly but unable to assist with anything. Nursing and CNAs report gurgling/choking/coughing when takes in liquids. Objective Exam Vital Signs Date Time Temp Pulse Resp B/P (MAP) Pulse Ox O2 Delivery O2 Flow Rate FiO2 11/05/19 12:00 37.2 121 18 159/83 (108) 98 Room Air 11/05/19 09:00 99 Room Air 2.00 11/05/19 08:00 36.9 95 Room Air 11/05/19 07:33 Room Air 11/05/19 04:09 37.3 114 20 148/86 (106) 99 Room Air 11/04/19 23:50 37.9 111 20 125/83 (97) 94 Room Air 11/04/19 19:17 37.1 109 20 184/104 (130) 97 Room Air 11/04/19 18:30 Room Air 11/04/19 17:02 37.3 110 15 117/95 (102) 96 Room Air I & O 11/05/19 07:00 Intake Total 1010 ml Output Total 2375 ml Balance -1365 ml Capillary Refill : Greater Than 3 Seconds General Appearance: Mild Distress Respiratory: Lungs Clear Cardiovascular: Tachycardia Gastrointestinal: normal bowel sounds, non tender, soft Neurologic/Psychiatric: Alert, Motor Weakness (generalized with contractures of hands) Skin: Warm/Dry Results Lab Laboratory Tests 11/05/19 05:17: White Blood Count 8.8, Red Blood Count 3.21L, Hemoglobin 9.1L, Hematocrit 29L, Mean Corpuscular Volume 90, Mean Corpuscular Hemoglobin 28, Mean Corpuscular Hemoglobin Concent 32, Red Cell Distribution Width 18.1H, Platelet Count 159, Mean Platelet Volume 10.6H, Neutrophils (%) (Auto) 84H, Lymphocytes (%) (Auto) 10L, Monocytes (%) (Auto) 6, Eosinophils (%) (Auto) 0, Basophils (%) (Auto) 0, N eutrophils # (Auto) 7.4, Lymphocytes # (Auto) 0.9L, Monocytes # (Auto) 0.6, Eosinophils # (Auto) 0.0, Basophils # (Auto) 0.0, Sodium Level 145, Potassium Level 3.5L, Chloride Level 113H, Carbon Dioxide Level 23, Anion Gap 9, Blood Urea Nitrogen 20H, Creatinine 0.51L, Estimat Glomerular Filtration Rate > 60, BUN/Creatinine Ratio 39, Glucose Level 99, Calcium Level 7.5L, Corrected Calcium 8.9, Magnesium Level 1.5L, Total Bilirubin 1.4H, Aspartate Amino Transf (AST/SGOT) 103H, Alanine Aminotransferase (ALT/SGPT) 124H, Alkaline Phosphatase 218H, Total Protein 5.7L, Albumin 2.3L Microbiology 10/30/19 Gram Stain - Final, Complete 10/30/19 Sputum Culture - Final, Complete Usual upper respiratory joana Moraxella catarrhalis Staphylococcus aureus 10/30/19 Urine Culture - Final, Complete NO GROWTH 10/30/19 Blood Culture - Final, Complete No growth Assessment/Plan Assessment/Plan Assess & Plan/Chief Complaint 1. Influenza B--done with Tx 2. Severe Dehydration with Acute Renal Failure--back on IVF, Cr improved 3. Sepsis with Staph Aureus--Cefepime restarted 4. Scleroderma--looking at NH placement, patient unable to participate in 3hrs therapy to qualify for inpatient rehab 5. Hypotension--improved 6. Metabolic Acidosis with metabolic encephalopathy--improved 7. Bilateral Cerebral Emboli with Ischemia--likely source is endocarditis but will proceed with CT angiogram since was unable to accomplish before due to Creatinine 8. Anxiety/Agitation--add citalopram 9. Choking--ST will back tomorrow to re evaluate Clinical Quality Measures Admission Status Admission Dx 1. Influenza B--treat with tamiflu 2. Severe Dehydration with Acute Renal Failure--aggressive IVF rehydration and monitor BUN/Cr 3. Hypotension--aggressive hydration and pressors if needed 4. Metabolic Acidosis with Electrolyte Imbalance--Hydrate and replace electrolytes as needed 5. Bacturia--culture urine and cover with maxipime until cultures final 6. Scleroderma with Vasculitis--patient has not been on any immunosuppressive therapy or steroids for at least 3-4mos DVT/VTE Risk/Contraindication: Risk Factor Score Per Nursin RFS Level Per Nursing on Admit: 4+=Very High DOLORES LUCERO DO Nov 05, 2019 14:08
[2019-11-05] MEDS: MAGNESIUM 1 GM/100 ML IVPB 100 ML IV SCH ×2 (14:31→15:14)
[2019-11-05 15:32] VITALS: BP_SYST 151; BP_SYST 156; BP_DIAS 63; BP_DIAS 90
--- NOTE | 2019-11-05 15:42 | Physical Therapy Evaluation ---
PT Evaluation-General Medical Diagnosis Admission Date Oct 30, 2019 at 10:55 Medical Diagnosis: Influenza B, Inés Onset Date: Nov 04, 2019 Therapy Diagnosis Therapy Diagnosis: impaired mobility Precautions Precautions/Isolations: Aspiration, Fall Prevention Weight Bear Status Right Lower Extremity: Right Full Weight Bearing Left Lower Extremity: Left Full Weight Bearing Referral Physician: Alonso Reason for Referral: Evaluation/Treatment Medical History Pertinent Medical History: GERD Additional Medical History scleroderma Current History Pt was initially admitted via ED with influenza b and acute renal failure on 10/30/19. On 10/31/19 she was found to have (B) embolic ischemia with limited use of (B) UEs and aphasia. Pt had been on hospice and is now off of hospice. Reviewed History: Yes Social History Home: Single Level Current Living Status: Spouse Prior Prior Level of Function SCALE: Activities may be completed with or without assistive devices. 4-Iigjwccfch-frlqlly completes the activity by him/herself with no assistance from a helper. 5-Set-up or Clean-up Assistance-helper sets up or cleans up; patient completes activity. [place] assists only prior to or following the activity. 4-Supervision or Touching Assistance-helper provides verbal cues and/or touching/steadying and/or contact guard assistance as patient completes activity. Assistance may be provided throughout the activity or intermittently. 3-Partial/Moderate Assistance-helper does LESS THAN HALF the effort. [place] lifts, holds or supports trunk or limbs, but provides less than half the effort. 2-Substantial/Maximal Assistance-helper does MORE THAN HALF the effort. [place] lifts or holds trunk or limbs and provides more than half the effort. 5-Iyuhxwymq-tchxmy does ALL the effort. Patient does none of the effort to compl ete the activity. Or, the assistance of 2 or more helpers is required for the patient to complete the activity. If activity was not attempted, code reason: 7-Patient Refused. 9-Not Applicable-not attempted and the patient did not perform the activity before the current illness, exacerbation or injury. 10-Not Attempted due to Environmental Limitations-(lack of equipment, weather restraints, etc.). 88-Not Attempted due to Medical Conditions or Safety Concerns. Bed Mobility: 4 Transfers (B,C,W/C): 4 Gait: 1 Stairs: 1 Wheelchair Mobility: 5 Indoor Mobility (Ambulation): Not [place] Stairs: Not [place] Prior Devices Use: Manual wheelchair Pt states that she was able to perform supine to sit, slide transfer from the bed to a manual wheelchair and self propel through the home. She was also able to transfer from the wheelchair to/from the commode without assist. PT Evaluation-Current Subjective Pt is alert and able to communicate verbally. She states that she is very weak. Pt does not report pain at this time. Pt/Family Goals Unknown at this time. Objective Patient Orientation: Person, Place, Situation Attachments: Londono Catheter, IV ROM/Strength ROM Upper Extremities Pt has (B) hand flexion contractures. (B) elbow flexion contracture at 90 degrees. (B) shoulder flexion/abduction limited to 20 degrees. ROM Lower Extremities (B) knee flexion is tolerated to 90 degrees, passively, AROM flexion to 40 degrees. Able to passively flex the hips to 60 degrees, AROM to 40 degrees. Strength Upper Extremities 2/5 (B) shoulder, biceps, and triceps MMT Strength Lower Extremities 3-/5 (B) hip flexion, hip extension, knee extension, and hamstring MMT. Sensory Vision: Functional Hearing: Functional Sensation Right Upper Extremit: Intact Sensation Left Upper Extremity: Intact Sensation Up. Extremities Pt states that she can feel light touch stimuli in (B) UEs. Sensation Right Lower Extremit: Intact Sensation Left Lower Extremity: Intact Transfers Roll Left to Right (QC): 1 Sit to Lying (QC): 1 Lying to Sitting/Side of Bed(Q: 1 Sit to Stand (QC): 88 Chair/Qam-sd-Butny Xfer(QC): 88 Toilet Transfer (QC): 88 Car Transfer (QC): 88 Pt required total assist for supine to/from sitting. She initially required total assist to remain sitting upright. After sitting for 3min she was able to steady herself and sit unassisted for 30 seconds. Gait Does the Patient Walk?: No and Walking Goal NOT indicated Mode of Locomotion: Wheelchair Anticipated Mode of Locomotion: Wheelchair Wheelchair Training Does the Pt Use a Wheelchair?: Yes Wheel 50 ft with 2 turns (QC): 88 Wheel 150 ft (QC): 88 Type of Wheelchair: Manual Balance Sitting Static: Poor Sitting Dynamic: Poor Assessment/Needs Pt requires total assist for (B) LE ROM, bed mobility, and transfers. She fully participated with the evaluation but was limited in her ability. Rehab Potential: Poor PT Short Term Goals Short Term Goals Time Frame: Nov 12, 2019 Roll Left & Right: 3 Sit to lyin Lying to sitting on side of be: 3 Chair/ovi-qs-astlp transfer: 3 Toilet transfer: 3 Wheel 50ft w/2 turns: 2 PT Plan Problem List Problem List: Activity Tolerance, Functional Strength, Balance, Transfer, Bed Mobility Treatment/Plan Treatment Plan: Continue Plan of Care Treatment Duration: Nov 12, 2019 Frequency: 6 times per week Estimated Hrs Per Day: .25 hour per day Patient and/or Family Agrees t: Yes Time/GCodes Time In: 1500 Time Out: 1530 Total Billed Treatment Time: 30 Total Billed Treatment 1, minerva 30 COREY OLIVEIRA PT Nov 05, 2019 15:42
--- NOTE | 2019-11-05 16:12 | Occupational Therapy Eval ---
OT Evaluation-General/PLF Medical Diagnosis Admission Date Oct 30, 2019 at 10:55 Medical Diagnosis: Influenza B, Inés Onset Date: Nov 04, 2019 Therapy Diagnosis Therapy Diagnosis: debility Precautions Precautions/Isolations: Standard Precautions Safety Interventions: Bed Exit Alarm Referral Physician: Alonso Medical History Pertinent Medical History: GERD Current History Pt was initially admitted via ED with influenza b and acute renal failure on 10/30/19. On 10/31/19 she was found to have (B) embolic ischemia with limited use of (B) UEs and aphasia. Pt had been on hospice and is now off of hospice. Social History Home: Single Level Current Living Status: Spouse ADL-Prior Level of Function SCALE: Activities may be completed with or without assistive devices. 1-Zukyfwquhg-auodkuq completes the activity by him/herself with no assistance from a helper. 5-Set-up or Clean-up Assistance-helper sets up or cleans up; patient completes activity. [place] assists only prior to or following the activity. 4-Supervision or Touching Assistance-helper provides verbal cues and/or touching/steadying and/or contact guard assistance as patient completes activity. Assistance may be provided throughout the activity or intermittently. 3-Partial/Moderate Assistance-helper does LESS THAN HALF the effort. [place] lifts, holds or supports trunk or limbs, but provides less than half the effort. 2-Substantial/Maximal Assistance-helper does MORE THAN HALF the effort. [place] lifts or holds trunk or limbs and provides more than half the effort. 2-Eumjkwuyi-qwdnso does ALL the effort. Patient does none of the effort to complete the activity. Or, the assistance of 2 or more helpers is required for the patient to complete the activity. If activity was not attempted, code reason: 7-Patient Refused. 9-Not Applicable-not attempted and the patient did not perform the activity before the current illness, exacerbation or injury. 10-Not Attempted due to Environmental Limitations-(lack of equipment, weather restraints, etc.). 88-Not Attempted due to Medical Conditions or Safety Concerns. ADL PLOF Comments Pt has some difficulty providing detailed information regarding PLOF. Pt states she lives with spouse who works, so she is often home alone. States she spends most of her time in bed. Pt states she is usually able to feed herself. Pt reports she doesn't usually get dressed every day since she is home alone. S tates she does not get up to [facility]. Self Care: Unknown Functional Cognition: Unknown OT Current Status Subjective Pt in bed, agrees to therapy. Mental Status/Objective Patient Orientation: Person Attachments: [place]o Catheter, IV Current Upper Extremity ROM Pt has bilateral hand and elbow contractures. Only able to flex elbow to ~90degrees. Limited bilateral shoulder ROM. Upper Extremity Coordination impaired Upper Extremity Strength impaired. ADL-Treatment ADL-Current Pt is currently dependent for all ADLs and mobility. Very minimal participation with encouragement. Limited UE movement, but contractures present at baseline. Pt's conversation difficult to follow. Pt states she would only like to be able to feed herself, but RN reports pt is currently unable to eat anything other than ice chips secondary to choking. Pt resting in bed with needs met after session. Discussed with RN. OT Education/Plan Problem List/Assessment Assessment: No Skilled OT Needs ID'd Discharge Recommendations Plan/Recommendations: Discontinue OT Treatment Plan/Plan of Care Treatment,Training & Education: No Plan of Care: OTHER (evaluation only) Treatment Duration: Nov 05, 2019 Frequency: 1 time per week (evaluation only) Estimated Hrs Per Day: Other Rehab Potential: Poor Time/GCodes Start Time: 15:28 Stop Time: 15:42 Total Time Billed (hr/min): 14 Billed Treatment Time 1 visit, NICOLAS(14minutes) MG WATTS OT Nov 05, 2019 16:12
[2019-11-05 20:49] VITALS: BP 171/90
--- NOTE | 2019-11-05 23:50 | NUR ---
PT HAVING AGITATION AT THIS TIME AND SAYING STAFF IS TRYING TO KILL HER, PT WANTED TO SPEAK WITH HER . CALLED AND LET PT TALK ON THE PHONE. PT GIVEN 4 MG MORPHINE AT 2354. PT CONTINUES TO SPEAK WITH AND IS GETTING MORE UPSET AND AGITATED. PT GIVEN 1 MG OF ATIVAN AT 0022. SPOKE WITH ABOUT CURRENT SITUATION AND IS UNDERSTANDING OF SITUATION. WILL CONTINUE TO MONITOR.
[2019-11-06] VITALS (7 sets, daily range): BP systolic 148–194; BP diastolic 70–95
[2019-11-06] MEDS: LORazepam INJ 2 MG/ML (ATIVAN) VIAL IVP PRN ×2 (00:22→11:47)
[2019-11-06] MEDS: morphine INJ 4 MG/ML 1 ML (VIAL/SYRINGE) IV PRN ×2 (04:32→09:11)
[2019-11-06 05:25] LABS: BASOPHILS % (AUTO) 0 % (0-10); EOSINOPHILS % (AUTO) 0 % (0-10); HEMATOCRIT 29 % (35-52); HEMOGLOBIN 9.2 G/DL (11.5-16.0); LYMPHOCYTES # (AUTO) 1.7 X 10^3 (1.0-4.0); LYMPHOCYTES % (AUTO) 14 % (12-44); MEAN CORPUSCULAR HEMOGLOBIN 28 PG (25-34); MEAN CORPUSCULAR HGB CONC 32 G/DL (32-36); MEAN CORPUSCULAR VOLUME 87 FL (80-99); MEAN PLATELET VOLUME 10.3 FL (7.4-10.4); MONOCYTES # (AUTO) 0.6 X 10^3 (0.0-1.0); MONOCYTES % (AUTO) 5 % (0-12); NEUTROPHILS # (AUTO) 10.1 X 10^3 (1.8-7.8); NEUTROPHILS % (AUTO) 81 % (42-75); PLATELET COUNT 210 10^3/uL (130-400); RED CELL DISTRIBUTION WIDTH 17.9 % (10.0-14.5); WHITE BLOOD COUNT 12.4 10^3/uL (4.3-11.0)
[2019-11-06 05:34] LABS: ALANINE AMINOTRANSFERASE 92 U/L (0-55); ALBUMIN 2.5 GM/DL (3.2-4.5); ALKALINE PHOSPHATASE 200 U/L (40-136); BILIRUBIN,TOTAL 1.3 MG/DL (0.1-1.0); BUN/CREATININE RATIO 12; CALCIUM 7.3 MG/DL (8.5-10.1); CARBON DIOXIDE 24 MMOL/L (21-32); CHLORIDE 106 MMOL/L (98-107); CREATININE SERUM 0.49 MG/DL (0.60-1.30); GFR ESTIMATED > 60; GLUCOSE 110 MG/DL (70-105); POTASSIUM 3.3 MMOL/L (3.6-5.0); SODIUM 138 MMOL/L (135-145); TOTAL PROTEIN 6.2 GM/DL (6.4-8.2)
--- NOTE | 2019-11-06 07:40 | Diagnostic Imaging Report ---
INDICATION: Dyspnea. Comparison with 11/05/2019. FINDINGS: Heart is not enlarged. Lungs are well-aerated. Mild interstitial prominence of the lungs along the perihilar regions again noted. No pneumothorax. Could not exclude small left basilar pleural effusion. IMPRESSION: 1. Persistent mild perihilar infiltrate with questionable small left basilar pleural effusion. Dictated by: Dictated on workstation # [id number]
--- NOTE | 2019-11-06 07:53 | Speech Therapy Progress Note ---
Therapy Progress Note spoke with fourth floor kitchen stewardess to have patient downgraded to nectar due to choking on thin liquids. JOSE DE JESUS SMITH Nov 06, 2019 07:53
[2019-11-06] MEDS: ASPIRIN 81 MG CHEW (CHILDREN'S ASA) PO SCH (09:10)
[2019-11-06] MEDS: CEFEPIME INJECTION 1,000 MG in WATER (STERILE) FOR INJECTION 10 ML IV SCH ×2 (09:10→14:59)
[2019-11-06] MEDS: SALIVA STIMULANT MOUTH SPRAY (BIOTENE) 1.5 OZ MM PRN (09:11)
--- NOTE | 2019-11-06 09:13 | Physical Therapy Daily Note ---
PT Daily Note-Current Subjective Patient in bed pre tx, agrees to PT, seems to indicate that she doesn't have any pain, patient mumbles and speech is hard to understand, she seems concerned about getting OT. Appearance Patient BTB post tx with nurse call, laying on left side with pillow support for pressure relief, pillows under both legs. Mental Status Patient Orientation: Person, Confused, Mumbles Attachments: [place] Catheter, IV Transfers SCALE: Activities may be completed with or without assistive devices. 9-Wglxqmhxqc-qsjamng completes the activity by him/herself with no assistance from a helper. 5-Set-up or Clean-up Assistance-helper sets up or cleans up; patient completes activity. [place] assists only prior to or following the activity. 4-Supervision or Touching Assistance-helper provides verbal cues and/or touching/steadying and/or contact guard assistance as patient completes activity. Assistance may be provided throughout the activity or intermittently. 3-Partial/Moderate Assistance-helper does LESS THAN HALF the effort. [place] lifts, holds or supports trunk or limbs, but provides less than half the effort. 2-Substantial/Maximal Assistance-helper does MORE THAN HALF the effort. [place] lifts or holds trunk or limbs and provides more than half the effort. 8-Vkrdmywpd-oohxen does ALL the effort. Patient does none of the effort to complete the activity. Or, the assistance of 2 or more helpers is required for the patient to complete the activity. If activity was not attempted, code reason: 7-Patient Refused. 9-Not Applicable-not attempted and the patient did not perform the activity before the current illness, exacerbation or injury. 10-Not Attempted due to Environmental Limitations-(lack of equipment, weather restraints, etc.). 88-Not Attempted due to Medical Conditions or Safety Concerns. Roll Left & Right (QC): 1 Sit to Lying (QC): 1 Lying to Sitting/Side of Bed(Q: 1 Patient was able to sit on her own after a couple of minutes and cues for positioning. Weight Bearing Right Lower Extremity: Right Full Weight Bearing Left Lower Extremity: Left Full Weight Bearing Exercises Seated Therapy Exercises: Kicking activity Seated Reps: 20 Treatments sitting, LE exercise Assessment Current Status: Poor Progress patient has contracted hands, poor general movement PT Short Term Goals Short Term Goals Time Frame: Nov 12, 2019 Roll Left & Right: 3 Sit to lyin Lying to sitting on side of be: 3 Chair/zxy-dp-iyioq transfer: 3 Toilet transfer: 3 Wheel 50ft w/2 turns: 2 PT Plan Problem List Problem List: Activity Tolerance, Functional Strength, Safety, Balance, Gait, Transfer, Bed Mobility, ROM Treatment/Plan Treatment Plan: Continue Plan of Care Treatment Plan: Bed Mobility, Education, Functional Activity Kiet, Functional Strength, Gait, Safety, Therapeutic Exercise, Transfers Treatment Duration: Nov 12, 2019 Frequency: 6 times per week Estimated Hrs Per Day: .25 hour per day Patient and/or Family Agrees t: Yes Safety Risks/Education Patient Education: Correct Positioning, Safety Issues Teaching Recipient: Patient Teaching Methods: Demonstration, Discussion Response to Teaching: Reinforcement Needed Time/GCodes Time In: 0850 Time Out: 0905 Total Billed Treatment 1 visit FA Alyx' HARVINDER LARKIN PT Nov 06, 2019 09:13
--- NOTE | 2019-11-06 10:20 | NUR ---
PATIENT AGREED TO HAVE CT SCAN TODAY, DR LUCERO OFFICE NOTIFIED.
[2019-11-06] MEDS ORDERED: HOLD METFORMIN - RECEIVED CONTRAST 20 ML VIAL IV SCH (11:45)
[2019-11-06] MEDS ORDERED: NS 100 ML (IVPB) BAG IV ONE (11:45)
[2019-11-06] MEDS ORDERED: IOHEXOL 350 MG/ML 100 ML (OMNIPAQUE 350) VIAL IV ONE (11:45)
--- NOTE | 2019-11-06 11:55 | NUR ---
DOWN TO CT SCAN, ATIVAN IV GIVEN PRE-MED
[2019-11-06] MEDS ORDERED: ATENOLOL 25 MG (TENORMIN) TAB PO NR (12:00)
[2019-11-06] MEDS: FLUCONAZOLE 100 MG/50 ML IVPB IV SCH ×2 (12:31)
[2019-11-06] MEDS: POTASSIUM CL 10MEQ/50ML IVPB 50 ML IV SCH ×2 (12:31→14:57)
--- NOTE | 2019-11-06 12:36 | Diagnostic Imaging Report ---
INDICATION: Intracranial emboli. TECHNIQUE: Post IV contrast-enhanced CT angio neck performed with 2D and 3D reconstructions. FINDINGS: The visualized top of the thoracic aortic arch is patent as variant vascular anatomy with bovine arch, the left common carotid arises off the innominate as a common incidental variant. Subclavian arteries where visualized are patent bilaterally. The vertebral arteries are patent, the left dominant, the right somewhat small diffusely but nonfocal and not pathologic. We note that the right vertebral artery terminates intracranially as the PICA, also as a variant. The common carotids are patent. The carotid bulbs and bifurcations are patent. Cervical internal carotid arteries are widely patent. No luminal irregularity, plaque, stenosis, dissection, or occlusion. This patient is noted to have multiple bilateral thyroid nodules of varying degrees of density, likely reflecting masses with varying degrees of intralesional cystic degeneration. Nonemergent correlative thyroid ultrasound recommended. This patient has an indwelling central venous catheter extending into the visualized upper thoracic SVC and going below the [id number]. There is disc material partly calcified as well as endplate osteophytes resulting in multilevel canal stenoses, most severe at C5-C6 but substantial at the C4-C5 level. The intracranial ICAs are patent. The bilateral A1 segments patent. The ACOM is identified. The paired anterior cerebral arteries are patent, where included in the [id number]. The bilateral middle cerebral arterial segments and primary branches are patent. No large vessel occlusion or identifiable intraluminal thrombus. The intradural right vertebral terminates as the PICA. The intradural left vertebral and basilar are widely patent. research recruiter are patent. The right ULTIMATE HOOPS SCOREBOARD OPERATOR is of origin with prominent PCOM. No aneurysm. IMPRESSION: 1. No substantial cervical or intracranial arterial pathology. 2. Cervical spondylosis. Disc protrusion at the midline with endplate osteophytes with severe stenosis of the canal at C5-C6 and at least moderate stenosis at C4-C5. 3. Indeterminate thyroid nodules, nonemergent outpatient sonographic correlation recommended. Dictated by: Dictated on workstation # [id number]
--- NOTE | 2019-11-06 13:31 | Cardiology Progress Note ---
Cardiology SOAP Progress Note Subjective: Not communicating. Objective: I&O/Vital Signs 11/06/19 11/06/19 11/06/19 11/06/19 04:20 08:00 09:00 12:00 Temp 37.3 37.4 37.1 Pulse 119 122 77 Resp 18 18 20 B/P (MAP) 194/95 (128) 166/76 (106) 155/84 (107) Pulse Ox 97 100 99 93 O2 Delivery Room Air Room Air Room Air Room Air 11/06/19 00:00 Intake Total 450 ml Output Total 2700 ml Balance -2250 ml Constitutional: other (cannot determine orientation, pt not verbally responsive, well developed, well nourished) Respiratory: No accessory muscle use; other (good bilat air entry) Cardiovascular: regular rate-rhythm, S1 and S2, systolic murmur (soft LION at card base) Gastrointestional: No tender; soft; No guarding, No rebound; audible bowel sounds Extremities: No clubbing, No cyanosis, No significant edema Neurologic/Psychiatric: other (aphasic and essentially unresponsive, cannot cooperate with a neuro exam) Skin: warm/dry, other (scleroderma skin changes noted to face and extremities) Results/Procedures: Labs Laboratory Tests 11/06/19 04:39: White Blood Count 12.4H, Red Blood Count 3.33L, Hemoglobin 9.2L, Hematocrit 29L, Mean Corpuscular Volume 87, Mean Corpuscular Hemoglobin 28, Mean Corpuscular Hemoglobin Concent 32, Red Cell Distribution Width 17.9H, Platelet Count 210, Mean Platelet Volume 10.3, Neutrophils (%) (Auto) 81H, Lymphocytes (%) (Auto) 14, Monocytes (%) (Auto) 5, Eosinophils (%) (Auto) 0, Basophils (%) (Auto) 0, Neutrophils # (Auto) 10.1H, Lymphocytes # (Auto) 1.7, Monocytes # (Auto) 0.6, Eosinophils # (Auto) 0.0, Basophils # (Auto) 0.0, Sodium Level 138, Potassium Level 3.3L, Chloride Level 106, Carbon Dioxide Level 24, Anion Gap 8, Blood Urea Nitrogen 6L, Creatinine 0.49L, Estimat Glomerular Filtration Rate > 60, BUN/Creatinine Ratio 12, Glucose Level 110H, Calcium Level 7.3L, Corrected Calcium 8.5, Total Bilirubin 1.3H, Aspartate Amino Transf (AST/SGOT) 59H, Alanine Aminotransferase (ALT/SGPT) 92H, Alkaline Phosphatase 200H, Total Protein 6.2L, Albumin 2.5L Microbiology 10/30/19 Gram Stain - Final, Complete 10/30/19 Sputum Culture - Final, Complete Usual upper respiratory joana Moraxella catarrhalis Staphylococcus aureus 10/30/19 Urine Culture - Final, Complete NO GROWTH 10/30/19 Blood Culture - Final, Complete No growth A/P: Assessment/Dx: Influenza B Severe sepsis, presentation with septic shock Questionable staphylococcal septicemia (one out of two blood cultures positive for staph aureus and strep pyogenes) Mental status changes: sepsis vs stroke Recent vs ac CVA. MRI on 11/01/19: Small punctate foci of acute ischemia involving the left dasilva radiata and right parietal lobe. No mass effect or hemorrhage. Given the bilateral distribution and punctate size, there is concern for embolic source. Echo on 10/31/29 (Dr Wallace): LVEF 80-85%, grade 1 menjivar dysfunction, PASP 55-60 mmHg. No evidence of endocarditis or intracardiac thrombus on TTE of 11/01/19 Liver enzyme elevation of undetermined etiology, worsening, managed by the [facility] Extensive cholelithiasis without bile duct dilatation on CT abdomen on 11/02/19, managed by the [facility] Anemia of undetermined etiology (may be dilutional due to iv fluid admin) Acute renal failure, likely ATN due to septic shock, improving Metabolic acidosis, improving Scleroderma, treated chronically with steroids No significant disease of either carotid bifurcation per carotid u/s of 11/01/19 Hypertension Plan: Plan: * I reviewed Dr Gupta's notes * Dr. Good yesterday discussed the case with patient's . He does not wish to pursue further cardiac or other w/u. Desires comfort care only * Cardiology will sign off. Please call if further advise as needed. Thank you for your consultation. Please call me if you have any questions. Zohra Moran MD, FACP, FACC, FSCAI, FHRS, CCDS Interventional Cardiology Cardiac Electrophysiology Vascular Medicine and Endovascular Interventions Clinical Quality Measures Type of Care: Type of Care: Comfort Measures Skye MORAN MD Nov 06, 2019 13:31
--- NOTE | 2019-11-06 14:13 | NUR ---
CM/SS: Visited with pt as to how she is doing today, as well as allow spouse to speak to pt via speaker on cell phone. Plan: Pt to be dismissed to retirement facility - possible [facility] Summary: Pt seems to be doing better today with her thought process. Pt is with the aide and is eating some, by talking small bites. Pt did take her CT scan earlier on this date. Spouse is given report that pt is doing better today. Spouse is glad to hear that. Pt is requesting her Ipad, cell phone, and glasses. Spouse reports he will bring those items up to the pt. He will drop off at the front office spec and someone can go down to get them, based on the no visitor policy. He is ok with that. He does encourage pt to continue to cooperate with staff and to take her medication. Pt shakes her head as spouse is talking with her, as to indicate understanding. This worker will follow up. Phone call to [facility] - additional information is faxed to them on pt's progress with physical therapy and occupational therapy. They are still trying to determine what the out of pocket cost will be for family based on the insurance with [facility], as it was initially 10% out of pocket. Date of discharge to be determined. They verbalize understanding.
--- NOTE | 2019-11-06 17:02 | Progress Note ---
Subjective Date Seen by a Provider: Nov 06, 2019 Time Seen by a Provider: 17:00 Subjective/Events-last exam Fwup influenza B, sepsis, bilateral emboli with ischemic stroke. Awake today and more cooperative. Objective Exam Vital Signs Date Time Temp Pulse Resp B/P (MAP) Pulse Ox O2 Delivery O2 Flow Rate FiO2 11/06/19 16:31 37.1 97 18 156/88 (110) 97 Room Air 11/06/19 12:00 37.1 77 20 155/84 (107) 93 Room Air 11/06/19 09:00 99 Room Air 11/06/19 08:00 37.4 122 18 166/76 (106) 100 Room Air 11/06/19 04:20 37.3 119 18 194/95 (128) 97 Room Air 11/06/19 00:23 37.8 125 20 187/86 (119) 98 Room Air 11/05/19 20:49 37.8 122 20 171/90 (117) 94 Room Air 11/05/19 18:37 Room Air I & O 11/06/19 07:00 Intake Total 450 ml Output Total 4300 ml Balance -3850 ml Capillary Refill : Greater Than 3 Seconds General Appearance: No Apparent Distress Neck: Supple Respiratory: Lungs Clear Cardiovascular: Regular Rate, Rhythm Gastrointestinal: normal bowel sounds, non tender, soft Extremity: Non Tender, No Calf Tenderness, No Pedal Edema Neurologic/Psychiatric: Alert Results Lab Laboratory Tests 11/06/19 04:39: White Blood Count 12.4H, Red Blood Count 3.33L, Hemoglobin 9.2L, Hematocrit 29L, Mean Corpuscular Volume 87, Mean Corpuscular Hemoglobin 28, Mean Corpuscular Hemoglobin Concent 32, Red Cell Distribution Width 17.9H, Platelet Count 210, Mean Platelet Volume 10.3, Neutrophils (%) (Auto) 81H, Lymphocytes (%) (Auto) 14, Monocytes (%) (Auto) 5, Eosinophils (%) (Auto) 0, Basophils (%) (Auto) 0, Neutrophils # (Auto) 10.1H, Lymphocytes # (Auto) 1.7, Monocytes # (Auto) 0.6, Eosinophils # (Auto) 0.0, Basophils # (Auto) 0.0, Sodium Level 138, Potassium Level 3.3L, Chloride Level 106, Carbon Dioxide Level 24, Anion Gap 8, Blood Urea Nitrogen 6L, Creatinine 0.49L, Estimat Glomerular Filtration Rate > 60, BUN/Creatinine Ratio 12, Glucose Level 110H, Calcium Level 7.3L, Corrected Calcium 8.5, Total Bilirubin 1.3H, Aspartate Amino Transf (AST/SGOT) 59H, Alanine Aminotransferase (ALT/SGPT) 92H, Alkaline Phosphatase 200H, Total Protein 6.2L, Albumin 2.5L Microbiology 10/30/19 Gram Stain - Final, Complete 10/30/19 Sputum Culture - Final, Complete Usual upper respiratory joana Moraxella catarrhalis Staphylococcus aureus 10/30/19 Urine Culture - Final, Complete NO GROWTH 10/30/19 Blood Culture - Final, Complete No growth Assessment/Plan Assessment/Plan Assess & Plan/Chief Complaint 1. Influenza B--done with Tx 2. Severe Dehydration with Acute Renal Failure--back on IVF, Cr improved 3. Sepsis with Staph Aureus--change to rocephin, will need 5 weeks IV abx on DC 4. Scleroderma--looking at SNF for DC 5. Hypotension--improved 6. Metabolic Acidosis with metabolic encephalopathy--improved 7. Bilateral Cerebral Emboli with Ischemia--likely source is endocarditis as CT angiogram is negative but has decided on no JACK 8. Anxiety/Agitation--started citalopram 9. Choking--ST adjusted to nectar consistency 10. Hypertension/Tachycardia--Atenolol started 11. Hypokalemia--potassium replaced Clinical Quality Measures Admission Status Admission Dx 1. Influenza B--treat with tamiflu 2. Severe Dehydration with Acute Renal Failure--aggressive IVF rehydration and monitor BUN/Cr 3. Hypotension--aggressive hydration and pressors if needed 4. Metabolic Acidosis with Electrolyte Imbalance--Hydrate and replace electrolytes as needed 5. Bacturia--culture urine and cover with maxipime until cultures final 6. Scleroderma with Vasculitis--patient has not been on any immunosuppressive therapy or steroids for at least 3-4mos DVT/VTE Risk/Contraindication: Risk Factor Score Per Nursin RFS Level Per Nursing on Admit: 4+=Very High DOLORES LUCERO DO Nov 06, 2019 17:02
[2019-11-06] MEDS: cefTRIAXone FOR IV USE 2,000 MG in WATER (STERILE) FOR INJECTION 20 ML IV SCH (17:48)
[2019-11-06] MEDS: ENOXAPARIN 40 MG/0.4 ML (LOVENOX) SYR SC SCH (17:48)
[2019-11-06] MEDS: SCOPOLAMINE 1.5 MG (TRANSDERM-SCOP) PATCH TOP SCH (17:48)
[2019-11-06] MEDS: D5 1/2 NS W/KCL 10 MEQ/L 1,000 ML IV SCH (19:02)
[2019-11-06] MEDS: ATENOLOL 25 MG (TENORMIN) TAB PO SCH (20:02)
[2019-11-07] MEDS: D5 1/2 NS W/KCL 10 MEQ/L 1,000 ML IV SCH ×2 (04:23→17:36)
[2019-11-07 04:28] VITALS: BP 137/66
[2019-11-07 04:46] LABS: BASOPHILS % (AUTO) 0 % (0-10); EOSINOPHILS # (AUTO) 0.1 10^3/uL (0.0-0.3); EOSINOPHILS % (AUTO) 1 % (0-10); HEMATOCRIT 28 % (35-52); HEMOGLOBIN 8.7 G/DL (11.5-16.0); LYMPHOCYTES # (AUTO) 1.3 X 10^3 (1.0-4.0); LYMPHOCYTES % (AUTO) 13 % (12-44); MEAN CORPUSCULAR HEMOGLOBIN 28 PG (25-34); MEAN CORPUSCULAR HGB CONC 32 G/DL (32-36); MEAN CORPUSCULAR VOLUME 87 FL (80-99); MEAN PLATELET VOLUME 10.2 FL (7.4-10.4); MONOCYTES # (AUTO) 0.5 X 10^3 (0.0-1.0); MONOCYTES % (AUTO) 6 % (0-12); NEUTROPHILS # (AUTO) 7.8 X 10^3 (1.8-7.8); NEUTROPHILS % (AUTO) 81 % (42-75); PLATELET COUNT 225 10^3/uL (130-400); RED CELL DISTRIBUTION WIDTH 17.5 % (10.0-14.5); WHITE BLOOD COUNT 9.6 10^3/uL (4.3-11.0)
[2019-11-07 05:02] LABS: ALANINE AMINOTRANSFERASE 67 U/L (0-55); ALBUMIN 2.4 GM/DL (3.2-4.5); ALKALINE PHOSPHATASE 214 U/L (40-136); BILIRUBIN,TOTAL 0.9 MG/DL (0.1-1.0); BUN/CREATININE RATIO 9; CALCIUM 7.2 MG/DL (8.5-10.1); CARBON DIOXIDE 22 MMOL/L (21-32); CHLORIDE 105 MMOL/L (98-107); CREATININE SERUM 0.45 MG/DL (0.60-1.30); GFR ESTIMATED > 60; GLUCOSE 101 MG/DL (70-105); MAGNESIUM 1.3 MG/DL (1.6-2.4); POTASSIUM 3.3 MMOL/L (3.6-5.0); SODIUM 135 MMOL/L (135-145)
--- NOTE | 2019-11-07 07:11 | Diagnostic Imaging Report ---
INDICATION: Dyspnea Single PA view of the chest is obtained with comparison made to study of one day earlier. Heart size and pulmonary vascularity are within normal limits. There is no pneumothorax or consolidation. Right jugular central venous catheter remains in stable position. There is no definite pleural fluid. IMPRESSION: No acute abnormality. Dictated by: Dictated on workstation # [id number]
[2019-11-07 08:00] VITALS: BP 196/91
[2019-11-07] MEDS: ATENOLOL 25 MG (TENORMIN) TAB PO SCH (08:00)
[2019-11-07] MEDS: ASPIRIN 81 MG CHEW (CHILDREN'S ASA) PO SCH (08:00)
[2019-11-07] MEDS: FLUCONAZOLE 100 MG/50 ML IVPB IV SCH ×2 (08:01)
[2019-11-07 09:00] VITALS: BP 189/88
[2019-11-07 12:00] VITALS: BP 158/80
[2019-11-07] MEDS ORDERED: MILK OF MAGNESIA 400 MG/5 ML 30 ML UDC PO PRN (12:00)
[2019-11-07] MEDS ORDERED: ATENOLOL 25 MG (TENORMIN) TAB PO NR (12:00)
--- NOTE | 2019-11-07 12:11 | Physical Therapy Daily Note ---
PT Daily Note-Current Subjective Pt laying Supine in bed with B LE up on pillows. Pt agrees to PT. Pain Location: No Pain Reported Mental Status Patient Orientation: Person, Place, Mumbles Attachments: [place] Catheter Transfers SCALE: Activities may be completed with or without assistive devices. 4-Ahorhavrux-toatnyp completes the activity by him/herself with no assistance from a helper. 5-Set-up or Clean-up Assistance-helper sets up or cleans up; patient completes activity. [place] assists only prior to or following the activity. 4-Supervision or Touching Assistance-helper provides verbal cues and/or touching/steadying and/or contact guard assistance as patient completes activity. Assistance may be provided throughout the activity or intermittently. 3-Partial/Moderate Assistance-helper does LESS THAN HALF the effort. [place] lift s, holds or supports trunk or limbs, but provides less than half the effort. 2-Substantial/Maximal Assistance-helper does MORE THAN HALF the effort. [place] lifts or holds trunk or limbs and provides more than half the effort. 3-Yxjjocxhf-ihxnjo does ALL the effort. Patient does none of the effort to complete the activity. Or, the assistance of 2 or more helpers is required for the patient to complete the activity. If activity was not attempted, code reason: 7-Patient Refused. 9-Not Applicable-not attempted and the patient did not perform the activity before the current illness, exacerbation or injury. 10-Not Attempted due to Environmental Limitations-(lack of equipment, weather restraints, etc.). 88-Not Attempted due to Medical Conditions or Safety Concerns. Weight Bearing Right Lower Extremity: Right Full Weight Bearing Left Lower Extremity: Left Full Weight Bearing Exercises Supine Ex: Ankle pumps, Quad Set, Heel Slides, Straight leg raise, Hip abd/add Supine Reps: 15 Treatments RESPIRATORY CARE INSTRUCTOR assists pt with dry mouth by wetting sponge & moving it as needed. Pt completes Supine Ex in bed. SW visit with pt during Rx about possible D/C depending on what Dr Gupta thinks after visiting pt in a little while. Pt resting in bed with all needs met, call light in lap. Assessment Current Status: Good Progress Pt demonstrates improved strength and ROM. PT Short Term Goals Short Term Goals Time Frame: Nov 12, 2019 Roll Left & Right: 3 Sit to lyin Lying to sitting on side of be: 3 Chair/wkr-iv-rguwx transfer: 3 Toilet transfer: 3 Wheel 50ft w/2 turns: 2 PT Plan Problem List Problem List: Activity Tolerance, Functional Strength Treatment/Plan Treatment Plan: Continue Plan of Care Treatment Plan: Bed Mobility, Education, Functional Activity Kiet, Functional Strength, Gait, Safety, Therapeutic Exercise, Transfers Treatment Duration: Nov 12, 2019 Frequency: 6 times per week Estimated Hrs Per Day: .25 hour per day Patient and/or Family Agrees t: Yes Safety Risks/Education Patient Education: Correct Positioning, Safety Issues Teaching Recipient: Patient Teaching Methods: Discussion Response to Teaching: Verbalize Understanding Time/GCodes Time In: 1115 Time Out: 1140 Total Billed Treatment Time: 25 Total Billed Treatment 1, FA (10m) & EX (15m) TRAVIS MATHEW PTA Nov 07, 2019 12:11
--- NOTE | 2019-11-07 12:13 | Progress Note ---
Subjective Date Seen by a Provider: Nov 07, 2019 Time Seen by a Provider: 12:10 Subjective/Events-last exam Fwup influenza B, sepsis, bilateral emboli with ischemic stroke, HTN. Sitting up in bed--ate a little more this morning. Objective Exam Vital Signs Date Time Temp Pulse Resp B/P (MAP) Pulse Ox O2 Delivery O2 Flow Rate FiO2 11/07/19 09:00 189/88 (121) 11/07/19 09:00 100 Room Air 11/07/19 08:00 37.1 88 20 196/91 (126) 100 Room Air 11/07/19 04:28 37.1 86 20 137/66 (89) 100 Room Air 11/06/19 23:45 37.6 96 20 148/70 (96) 95 Room Air 11/06/19 20:06 37.1 94 18 152/87 (108) 100 Room Air 11/06/19 16:31 37.1 97 18 156/88 (110) 97 Room Air I & O 11/07/19 07:00 Intake Total 2320 ml Output Total 2550 ml Balance -230 ml Capillary Refill : Less Than 3 SecondsGreater Than 3 Seconds General Appearance: No Apparent Distress Neck: Supple Respiratory: Lungs Clear Cardiovascular: Regular Rate, Rhythm Gastrointestinal: normal bowel sounds, non tender, soft Extremity: Non Tender, No Calf Tenderness, No Pedal Edema Neurologic/Psychiatric: Alert, Oriented x3 Skin: Other (left ankle with dry dressing in place) Results Lab Laboratory Tests 11/07/19 04:33: White Blood Count 9.6, Red Blood Count 3.16L, Hemoglobin 8.7L, Hematocrit 28L, Mean Corpuscular Volume 87, Mean Corpuscular Hemoglobin 28, Mean Corpuscular Hemoglobin Concent 32, Red Cell Distribution Width 17.5H, Platelet Count 225, Mean Platelet Volume 10.2, Neutrophils (%) (Auto) 81H, Lymphocytes (%) (Auto) 13, Monocytes (%) (Auto) 6, Eosinophils (%) (Auto) 1, Basophils (%) (Auto) 0, Neutrophils # (Auto) 7.8, Lymphocytes # (Auto) 1.3, Monocytes # (Auto) 0.5, Eosinophils # (Auto) 0.1, Basophils # (Auto) 0.0, Sodium Level 135, Potassium Level 3.3L, Chloride Level 105, Carbon Dioxide Level 22, Anion Gap 8, Blood Urea Nitrogen 4L, Creatinine 0.45L, Estimat Glomerular Filtration Rate > 60, BUN/Creatinine Ratio 9, Glucose Level 101, Calcium Level 7.2L, Corrected Calcium 8.5, Magnesium Level 1.3L, Total Bilirubin 0.9, Aspartate Amino Transf (AST/SGOT) 39H, Alanine Aminotransferase (ALT/SGPT) 67H, Alkaline Phosphatase 214H, Total Protein 6.0L, Albumin 2.4L Microbiology 10/30/19 Gram Stain - Final, Complete 10/30/19 Sputum Culture - Final, Complete Usual upper respiratory joana Moraxella catarrhalis Staphylococcus aureus 10/30/19 Urine Culture - Final, Complete NO GROWTH 10/30/19 Blood Culture - Final, Complete No growth Assessment/Plan Assessment/Plan Assess & Plan/Chief Complaint 1. Influenza B--done with Tx 2. Severe Dehydration with Acute Renal Failure--back on IVF, Cr improved 3. Sepsis with Staph Aureus--on rocephin, will need 5 weeks IV abx on DC 4. Scleroderma--looking at SNF for DC tomorrow--[facility] 5. Hypotension--improved 6. Metabolic Acidosis with metabolic encephalopathy--improved 7. Bilateral Cerebral Emboli with Ischemia--likely source is endocarditis as CT angiogram is negative but has decided on no JACK 8. Anxiety/Agitation--started citalopram 9. Choking--ST adjusted to nectar consistency 10. Hypertension/Tachycardia--Increase atenolol dose 11. Hypokalemia--potassium IV and oral 12. Hypomagnesemia--Magnesium IV and oral Clinical Quality Measures Admission Status Admission Dx 1. Influenza B--treat with tamiflu 2. Severe Dehydration with Acute Renal Failure--aggressive IVF rehydration and monitor BUN/Cr 3. Hypotension--aggressive hydration and pressors if needed 4. Metabolic Acidosis with Electrolyte Imbalance--Hydrate and replace electrolytes as needed 5. Bacturia--culture urine and cover with maxipime until cultures final 6. Scleroderma with Vasculitis--patient has not been on any immunosuppressive therapy or steroids for at least 3-4mos DVT/VTE Risk/Contraindication: Risk Factor Score Per Nursin RFS Level Per Nursing on Admit: 4+=Very High DOLORES LUCERO DO Nov 07, 2019 12:13
[2019-11-07] MEDS: MAGNESIUM 1 GM/100 ML IVPB 100 ML IV SCH ×2 (12:27→13:23)
[2019-11-07] MEDS: POTASSIUM CL 10MEQ/50ML IVPB 50 ML IV SCH ×4 (12:27→15:20)
--- NOTE | 2019-11-07 14:12 | NUR ---
CM/SS: Visited with pt at to plan for discharge Plan: Pt will be discharged to [facility] tomorrow. Summary: Additional records are faxed to [facility]. [facility] pt tomorrow at 10am. Telephone call to spouse Sukhwinder, , to notify him of the Admission acceptance and that they will cook pickled meat pt at 10am. in the morning. He is aware that the facility will call him for some additional information. Patient is notified that she will be able to go to [facility] in the morning, at 10am. She is ok with the plan. Pt does not have any clothes here. This worker is able to get pt some clothes from the clothes closet so that she can have some and spouse does not have to make a trip to the hospital to drop them off. A pair of pants and a shirt are given to pt for her to wear on tomorrow. Physician Alonso notified of the cook pickled meat time and is requested to have orders in by that time. Physician will ensure orders are in for pt to be discharged at 10am .
[2019-11-07] MEDS ORDERED: CITA10TA7 PO (16:16)
[2019-11-07] MEDS ORDERED: ACET-2650 PO (16:16)
[2019-11-07] MEDS ORDERED: CEFT2FRO2 IV (16:16)
[2019-11-07] MEDS ORDERED: SALI45SP MM (16:16)
[2019-11-07] MEDS ORDERED: MAGN400T7 PO (16:16)
[2019-11-07] MEDS ORDERED: ASPI-999 PO (16:16)
[2019-11-07] MEDS ORDERED: MAGN400O7 PO (16:16)
[2019-11-07] MEDS ORDERED: POTA8CAP20 PO (16:16)
[2019-11-07] MEDS ORDERED: PANT40TA3 PO (16:16)
[2019-11-07] MEDS ORDERED: CLOP75TA69 PO (16:16)
[2019-11-07] MEDS ORDERED: ATEN50TA PO (16:16)
[2019-11-07 16:19] VITALS: BP 185/82
--- NOTE | 2019-11-07 16:21 | Discharge Inst-Skilled Nursing ---
Discharge Inst-Skilled NF Reconcile Patient Problems Problems Reviewed?: Yes Patient Instructions Patient Problems: Bacterial Endocarditis Bilateral Ischemic Stroke Recent Sepsis Hypertension Scleroderma with Chronic Vasculitis Goal: To return home Consult/Follow Up/Orders Follow Up Appt.: Will determine as COVID-19 pandemic progresses Skilled NF Admit to: [facility] Certification (SNF) I certify that SNF services are required to be given on an inpatient basis because of the above named patient's need for custodial care on a continuing basis for the conditions(s) for which he/she was receiving inpatient hospital services prior to his/her transfer to the SNF. Longterm Facility Order: Nursing Services, Technical Solutions Director-Evaluate & Treat, Physical Therapy-Evaluate & Treat, Speech Language-Evaluate & Treat, Wound Care-Eval/Treat Oxygen Delivery Method: Room Air Discharge Diet: Other Diet ([place] consistency) Daily Activity as Tolerated: Yes Resuscitation Status: Do Not Resuscitate New & Resume Previous Orders New & Resume Previous Orders CBC and CMP in 2 weeks Blood Pressure checks twice a week Britni Gupta Nov 07, 2019 16:17 BRITNI GUPTA DO Nov 07, 2019 16:21
[2019-11-07] MEDS: cefTRIAXone FOR IV USE 2,000 MG in WATER (STERILE) FOR INJECTION 20 ML IV SCH (17:37)
[2019-11-07] MEDS: MAGNESIUM OXIDE (MAG-OX)400 MG TAB PO SCH (17:37)
[2019-11-07] MEDS: ENOXAPARIN 40 MG/0.4 ML (LOVENOX) SYR SC SCH (17:37)
[2019-11-07 19:54] VITALS: BP 191/91
[2019-11-07] MEDS: ATENOLOL 50 MG (TENORMIN) TAB PO SCH (20:29)
[2019-11-07] MEDS: SALIVA STIMULANT MOUTH SPRAY (BIOTENE) 1.5 OZ MM PRN (20:35)
[2019-11-08 00:15] VITALS: BP 179/95
[2019-11-08] MEDS: D5 1/2 NS W/KCL 10 MEQ/L 1,000 ML IV SCH ×2 (03:42→11:52)
[2019-11-08 04:00] VITALS: BP 222/97
--- NOTE | 2019-11-08 04:22 | NUR ---
Notified Dr. Gupta that pt blood pressure was 222/79mmhg and her temperature was 37.9. Received order for Clonidine 0.1mg PO once; Tylenol 650 PO q6h PRN for fever; Chest X-ray; Urinalysis; and CBC. Will follow orders.
[2019-11-08] MEDS ORDERED: cloNIDine 0.1 MG (CATAPRES) TAB PO ONE (04:30)
[2019-11-08] MEDS ORDERED: ACETAMINOPHEN 325 MG TABLET PO PRN (04:30)
[2019-11-08] MEDS ORDERED: KCL 8 MEQ (MICRO K) TABLET PO SCH (07:00)
[2019-11-08 07:03] LABS: BASOPHILS % (AUTO) 0 % (0-10); EOSINOPHILS # (AUTO) 0.1 10^3/uL (0.0-0.3); EOSINOPHILS % (AUTO) 1 % (0-10); HEMATOCRIT 25 % (35-52); HEMOGLOBIN 7.9 G/DL (11.5-16.0); LYMPHOCYTES # (AUTO) 0.9 X 10^3 (1.0-4.0); LYMPHOCYTES % (AUTO) 13 % (12-44); MEAN CORPUSCULAR HEMOGLOBIN 28 PG (25-34); MEAN CORPUSCULAR HGB CONC 31 G/DL (32-36); MEAN CORPUSCULAR VOLUME 88 FL (80-99); MEAN PLATELET VOLUME 10.1 FL (7.4-10.4); MONOCYTES # (AUTO) 0.5 X 10^3 (0.0-1.0); MONOCYTES % (AUTO) 7 % (0-12); NEUTROPHILS # (AUTO) 5.2 X 10^3 (1.8-7.8); NEUTROPHILS % (AUTO) 79 % (42-75); PLATELET COUNT 254 10^3/uL (130-400); RED CELL DISTRIBUTION WIDTH 17.4 % (10.0-14.5); WHITE BLOOD COUNT 6.6 10^3/uL (4.3-11.0)
--- NOTE | 2019-11-08 07:16 | Diagnostic Imaging Report ---
INDICATION: Fever. Comparison made with prior examination of 11/07/2019. FINDINGS: Heart size is normal. Lungs are clear. No pleural effusion or pneumothorax. Mediastinum is unremarkable. IMPRESSION: Stable chest x-ray Dictated by: Dictated on workstation # [id number]
[2019-11-08 07:48] LABS: BILIRUBIN,URINE NEGATIVE (NEGATIVE); CLARITY,URINE CLEAR; COLOR,URINE YELLOW; GLUCOSE, URINE (UA) TRACE (NEGATIVE); KETONES,URINE NEGATIVE (NEGATIVE); LEUKOCYTE ESTERASE ,URINE NEGATIVE (NEGATIVE); NITRITE,URINE NEGATIVE (NEGATIVE); PH,URINE 7.5 (5-9); PROTEIN,URINE TRACE (NEGATIVE)
[2019-11-08 08:00] VITALS: BP 148/63
[2019-11-08 08:10] LABS: BACTERIA,URINE NEGATIVE /HPF; SQUAMOUS EPITHELIAL CELL,UR 0-2 /HPF; WBC,URINE 0-2 /HPF
[2019-11-08] MEDS: ATENOLOL 50 MG (TENORMIN) TAB PO SCH (08:17)
[2019-11-08] MEDS: ASPIRIN 81 MG CHEW (CHILDREN'S ASA) PO SCH (08:17)
[2019-11-08] MEDS: MAGNESIUM OXIDE (MAG-OX)400 MG TAB PO SCH (08:17)
--- NOTE | 2019-11-08 08:53 | Physical Therapy Daily Note ---
PT Daily Note-Current Subjective Patient in bed pre tx, agrees to PT, has unrated pain, unsure of where, patient's speech is very hard to understand. Appearance Patient in recliner post tx with nurse call, phone, tray, all needs met, patient instructed to call nursing when she needs to get back to bed, tony sling under patient . Mental Status Patient Orientation: Person, Unable to Assess, [place] Attachments: [place] Catheter, IV Transfers SCALE: Activities may be completed with or without assistive devices. 1-Yzgncfkyxh-jvmeyqv completes the activity by him/herself with no assistance from a helper. 5-Set-up or Clean-up Assistance-helper sets up or cleans up; patient completes activity. [place] assists only prior to or following the activity. 4-Supervision or Touching Assistance-helper provides verbal cues and/or touching/steadying and/or contact guard assistance as patient completes activity. Assistance may be provided throughout the activity or intermittently. 3-Partial/Moderate Assistance-helper does LESS THAN HALF the effort. [place] lifts, holds or supports trunk or limbs, but provides less than half the effort. 2-Substantial/Maximal Assistance-helper does MORE THAN HALF the effort. [place] lifts or holds trunk or limbs and provides more than half the effort. 9-Trpwjbciz-dtjlhm does ALL the effort. Patient does none of the effort to complete the activity. Or, the assistance of 2 or more helpers is required for the patient to complete the activity. If activity was not attempted, code reason: 7-Patient Refused. 9-Not Applicable-not attempted and the patient did not perform the activity before the current illness, exacerbation or injury. 10-Not Attempted due to Environmental Limitations-(lack of equipment, weather restraints, etc.). 88-Not Attempted due to Medical Conditions or Safety Concerns. Roll Left & Right (QC): 1 Lying to Sitting/Side of Bed(Q: 1 Sit to Stand (QC): 1 Chair/Jcw-bs-Zfrqn Xfer(QC): 1 Patient had a BM and was cleaned by PT tech during the transfer, patient did not seem to be able to assist standing during the transfer. Weight Bearing Right Lower Extremity: Right Full Weight Bearing Left Lower Extremity: Left Full Weight Bearing Exercises Seated Therapy Exercises: Long arc quads Seated Reps: 20 Treatments toileting, bed mobility and transfer, LE exercise Assessment Current Status: Poor Progress dependent for stand pivot transfer PT Short Term Goals Short Term Goals Time Frame: Nov 12, 2019 Roll Left & Right: 3 Sit to lyin Lying to sitting on side of be: 3 Chair/aos-rg-yhlyb transfer: 3 Toilet transfer: 3 Wheel 50ft w/2 turns: 2 PT Plan Problem List Problem List: Activity Tolerance, Functional Strength, Safety, Balance, Gait, Transfer, Bed Mobility, ROM Treatment/Plan Treatment Plan: Continue Plan of Care Treatment Plan: Bed Mobility, Education, Functional Activity Kiet, Functional Strength, Gait, Safety, Therapeutic Exercise, Transfers Treatment Duration: Nov 12, 2019 Frequency: 6 times per week Estimated Hrs Per Day: .25 hour per day Patient and/or Family Agrees t: Yes Safety Risks/Education Patient Education: Transfer Techniques, Correct Positioning, Safety Issues Teaching Recipient: Patient Teaching Methods: Demonstration, Discussion Response to Teaching: Reinforcement Needed Time/GCodes Time In: 0831 Time Out: 0847 Total Billed Treatment Time: 16 Total Billed Treatment 1 visit FA HARVINDER MEJÍA PT Nov 08, 2019 08:53
--- NOTE | 2019-11-08 09:30 | NUR ---
report called to Keiko nurse. patient will need midline prior to DC. day surg notified and will come insert when available
[2019-11-08] MEDS ORDERED: FERR-65 PO (09:42)
[2019-11-08] MEDS ORDERED: FLUC100T6 PO (09:42)
[2019-11-08] MEDS: FLUCONAZOLE 100 MG/50 ML IVPB IV SCH ×2 (11:52)
--- NOTE | 2019-11-08 12:28 | Discharge Summary ---
Diagnosis/Chief Complaint Date of Admission Oct 30, 2019 at 10:55 Date of Discharge Discharge Date: Nov 08, 2019 Discharge Diagnosis 1. Influenza B--done with Tx 2. Severe Dehydration with Acute Renal Failure--improved 3. Sepsis with Staph Aureus--likely Bacterial Endocarditis--5more weeks of IV antibiotics--will do Rocephin since she is allergic to PCN and the Staph is MSSA 4. Scleroderma--chronic 5. Hypotension--resolved 6. Metabolic Acidosis with metabolic encephalopathy--improved 7. Bilateral Cerebral Emboli with Ischemia--likely source is endocarditis as CT angiogram is negative but has decided on no JACK, aspirin for now as hemoglobin dropped with addition of plavix 8. Anxiety/Agitation--improved with citalopram 9. Choking--ST adjusted to nectar consistency diet, ST at [place] 10. Hypertension/Tachycardia--on atenolol 11. Hypokalemia--oral potassium 12. Hypomagnesemia--oral magnesium 13. Weakness and Debility--to SNF for OT, PT 14. Acute Anemia--ferrous sulfate and repeat CBC in 2 weeks Reason Hospital Visit 1This is a 59 year old female with scleroderma who was brought to the emergency room with weakness and worsening shortness of breath. She states she had been sick for about a week. She was found to have Influenza B and to be severely dehydrated with a creatinine of 2.95 and was hypotensive. It was decided to admit her to the ICU for IVFs and possible pressors if needed. She was given tamiflu in the ER. Discharge Summary Hospital Course Was the Problem List Reviewed?: Yes Hospital Course This is a 59 year old female with scleroderma who was brought to the emergency room with weakness and worsening shortness of breath. She states she had been sick for about a week. She was found to have Influenza B and to be severely dehydrated with a creatinine of 2.95 and was hypotensive. It was decided to admit her to the ICU for IVFs and possible pressors if needed. She was given tamiflu in the ER. She was admitted to the ICU and placed on sepsis protocol with IV maxipime as well as aggressive IVFs. She required levaphed the first 24hrs for BP support. The second hospital day she was lethargic but appeared to be in distress so hydrocortisone was added for adrenal support. The 3rd hospital day, her labs were showing much improvement with her creatinine down to 1.63 and her electrolytes and acidosis were improving and she was awake but could not speak and could not track or follow commands. A CT scan of the brain was ordered which showed an old lacunar infarct but was otherwise normal so a MRI of the brain was obtained. This showed bilateral emboli with ischemia. This was discussed at length with both the as well as over the phone with both daughters. They were made aware of her poor prognosis and converted her to a DNR/DNI. Her blood cultures had came back positive for MSSA so she was continued on Maxipime and there was concern for bacterial endocarditis being the source of her cerebral emboli due to no noted atrial fibrillation and no plaque noted in her carotid arteries on dopplers however the right carotid was limited due to an IJ in that area and we were unable to perform a CT angiogram due to her creatinine. Cardiology was consulted and an ECHO was done--there was no obvious vegetation on her heart valves but she was too ill to do a JACK. It was decided to continue with aggressive treatment for at least another 24-48hrs to see if she was going to start responding or following any commands. Vancomycin was added for bacterial endocarditis coverage as well. She continued to be unresponsive and decline over the weekend so her decided on comfort care. All antibiotics, fluids, etc were stopped and she was placed on comfort care orders. She remained on comfort care but overnight she started speaking but she was unable to move her body. Arrangements were started for a hospice consult and admission to a NH. The was agreeable to continuing with the hospice as the patient lives in chronic pain and debility from her scleroderma. However, once he talked with his daughters the family decided to rescind the comfort care orders and proceed with treatment again. She was restarted on IVFs, maxipime and labs were reassessed. By the time of discharge her BUN/Cr were back to normal and her WBC count was back to the normal range. Speech therapy was ordered to do a swallow evaluation and it was decided on a soft diet. However, she continued to choke with orals so speech therapy was called back and she was changed to nectar consistency and did better with this. She was slowly starting to integrated marketing manager her arms and legs so PT and OT were started and plans were made for chcf placement. She originally declined the CT angiogram of her neck but then agreed to the test which showed no stenosis in her carotid or vertebral arteries. The declined a JACK due to her history of esophageal stricture from her scleroderma. Her blood pressure and pulse were elevated and she was started on atenolol for both blood pressure and heart rate control. She was started on both aspirin and plavix but her hemoglobin dropped so she will be discharged just on aspirin with a repeat CBC in 2 weeks. She did require both IV and oral replacement of potassium and magnesium as well. It was decided she could be switched to once daily IV rocephin and be discharged on this at the [facility] to continue for 5 weeks. All plans were in place for the patient to be discharged to the [facility] on the morning of 11/08/19 but before I was able to finalize her discharge plans, the nurse pulled her central line so the Midline/PICC line nurse was to come and place a line before discharge as the patient has to have IV antibiotics for 5 weeks. Labs Procedures None. Consultations Dr. Chary Wallace/Dean Discharge Physical Examination Allergies: Coded Allergies: Penicillins (Verified Allergy, Unknown, 10/30/19) Vitals & I&Os Vital Signs Date Time Temp Pulse Resp B/P (MAP) Pulse Ox O2 Delivery O2 Flow Rate FiO2 11/08/19 13:10 37.0 69 18 148/63 93 Room Air 2.00 General Appearance: Alert, Oriented X3, Cooperative, No Acute Distress Respiratory: Clear to Auscultation Cardiovascular: Regular Rate Abdominal: Normal Bowel Sounds, Soft, No Tenderness Extremities: Other (tenseness) Skin: Other (chronic sores to hands and feet) Psych/Mental Status: Mental Status NL, Mood NL Discharge Home Medications Reviewed and agree with Discharge Medication list on patient's Discharge Instruction sheet Instructions to Patient/Family Please see electronic discharge instructions given to patient. Clinical Quality Measures DVT/VTE Risk/Contraindication: Risk Factor Score Per Nursin RFS Level Per Nursing on Admit: 4+=Very High DOLORES LUCERO DO Nov 08, 2019 12:28
[2019-11-08 13:10] VITALS: BP 148/63
--- NOTE | 2019-11-08 13:14 | Diagnostic Imaging Report ---
INDICATION: Central venous catheter evaluation. Since examination of earlier in the day, there has been discontinuation of right jugular central venous catheter and placement of right upper extremity PICC with catheter tip reaching the lower superior vena cava. There is no evidence of pneumothorax. No definite pleural fluid is identified. Otherwise, no adverse change is identified. IMPRESSION: No evidence of complication post central venous catheter exchange as described. Dictated by: Dictated on workstation # [id number]
--- NOTE | 2019-11-08 14:37 | NUR ---
CM/SS: Discharge summary/information faxed to [facility]
== END 2019-11-08 13:10 | DRG 871 ==
LOC: EDUNIT# 09:19 → ER 09:21 → ICU 10:55 → 4TH 11-03 18:10
PROVIDERS: ADMIT Family Medicine; ATTEND Family Medicine
PROC: 02HV33Z Insertion of Infusion Device into Superior Vena Cava, Percutaneous Approach (ICD-10-PCS; principal; 2019-10-30)
DX: A41.01 Sepsis due to Methicillin susceptible Staphylococcus aureus (principal); R65.21 Severe sepsis with septic shock; N17.0 Acute kidney failure with tubular necrosis; I63.89 Other cerebral infarction; G93.41 Metabolic encephalopathy; E86.0 Dehydration; E87.2 Acidosis; R44.3 Hallucinations, unspecified; M79.10 Myalgia, unspecified site; R51 Headache; R10.9 Unspecified abdominal pain; R53.1 Weakness; J10.1 Influenza due to other identified influenza virus with other respiratory manifestations; Z66 Do not resuscitate; M34.9 Systemic sclerosis, unspecified; I10 Essential (primary) hypertension; K21.9 Gastro-esophageal reflux disease without esophagitis; E87.6 Hypokalemia; L95.9 Vasculitis limited to the skin, unspecified; R82.79 Other abnormal findings on microbiological examination of urine; I66.8 Occlusion and stenosis of other cerebral arteries; D64.9 Anemia, unspecified; R16.1 Splenomegaly, not elsewhere classified; K80.20 Calculus of gallbladder without cholecystitis without obstruction; E83.42 Hypomagnesemia
CPT/HCPCS: 36415; 36569; 51702; 70450; 70498; 70551; 71045; 74176; 76937; 80048; 80053; 80076; 81000; 82140; 82150; 82962; 83605; 83690; 83735; 84100; 85007; 85025; 85027; 85610; 85730; 87040; 87070; 87077; 87081; 87088; 87184; 87185; 87186; 87205; 87449; 87804; 87899; 93325; 93880; 93970; 94640; 94760; 96361; 96365; 96375